=== PATIENT | female | born 1960 | race Caucasian/White ===

== ENCOUNTER 2019-12-22 07:24 | Day surgery (SDC) | payer MEDICARE, MEDICAID ==
[~2019-12-22] VITALS: Ht 160 cm; Wt 115.4 kg
[2019-12-22] VITALS (8 sets, daily range): BP systolic 99–139; BP diastolic 52–81
[~2019-12-22 07:24] MED LIST: CALTRATE 600 +1 EACH PO; DIAZ2.5K RC; IRON150C13 PO; LACO100T2 PO; LACO200T2 PO; LACT10SO57 PO; LEVE750T6 PO; LORA2DIS4 IJ; MAGN400O6 PO; METO-539 PO; MULT-821 PO; OMEP20TA23 PO; PER5325T PO; PERA4TAB PO; POLY17PO10 PO
[2019-12-22] MEDS ORDERED: normal saline 1,000 ML IV SCH (07:55)
[2019-12-22] MEDS ORDERED: diphenhydrAMINE 25mg capsule PO PRN (07:55)
[2019-12-22] MEDS ORDERED: LORA2VIA30 IM (08:52)
[2019-12-22] MEDS ORDERED: midazolam 2 mg/2 ml injection ONE ×2 (08:52→09:23)
[2019-12-22] MEDS ORDERED: HYDR12.55 PO (08:52)
[2019-12-22] MEDS ORDERED: LACO150T2 PO (08:52)
[2019-12-22] MEDS ORDERED: DOCU100C41 PO (08:52)
[2019-12-22] MEDS ORDERED: AMLO-94 PO (08:52)
[2019-12-22] MEDS ORDERED: CHLO25TA2 PO (08:52)
[2019-12-22] MEDS ORDERED: LIDOcaine 1% (10mg/ml)w/preservative injection 20ml MDV ONE (08:52)
[2019-12-22] MEDS ORDERED: LORA10TA7 PO (08:52)
[2019-12-22] MEDS ORDERED: FOLI0.4T2 PO (08:52)
[2019-12-22] MEDS ORDERED: POTA20TA19 PO (08:52)
[2019-12-22] MEDS ORDERED: iohexol 350 MG/ML 50ML vial IV ONE (08:52)
[2019-12-22] MEDS ORDERED: fentaNYL/PF 50MCG/1 ML 2ML syringe ONE (08:52)
[2019-12-22] MEDS ORDERED: DICL50TA8 PO (08:52)
[2019-12-22] MEDS ORDERED: SENN-25 PO (08:52)
[2019-12-22] MEDS ORDERED: SODI650T29 PO (08:52)
[2019-12-22] MEDS ORDERED: DIAZ2TAB3 PO (08:52)
[2019-12-22] MEDS ORDERED: iohexol 350MG/ML 100ml bottle IV ONE (08:53)
[2019-12-22 08:58] LABS: BASOPHILS # (AUTO) 0.1 X10'3 (0-0.2); BASOPHILS % (AUTO) 0.9 % (0-1); EOSINOPHILS # (AUTO) 0.2 X10'3 (0-0.9); EOSINOPHILS % (AUTO) 2.8 % (0-6); HEMATOCRIT 38.7 % (35.0-45.0); LYMPHOCYTES % (AUTO) 24.6 % (21-51); MEAN CORPUSCULAR HEMOGLOBIN 28.7 PG (27.0-31.0); MEAN CORPUSCULAR HGB CONC 33.5 g/dL (33.0-36.5); MEAN CORPUSCULAR VOLUME 85.6 FL (78-98); MEAN PLATELET VOLUME 7.3 FL (7.4-10.4); MONOCYTES # (AUTO) 0.5 X10'3 (0-0.9); MONOCYTES % (AUTO) 6.2 % (2-12); NEUTROPHILS # (AUTO) 5.2 X10'3 (1.8-7.7); NEUTROPHILS % (AUTO) 65.5 % (42-75); PLATELET COUNT 377 X10'3 (140-440); RED BLOOD COUNT 4.53 X10'6 (4.20-5.60); RED CELL DISTRIBUTION WIDTH 15.4 % (11.5-14.5); WHITE BLOOD COUNT 7.9 X10'3 (4.5-11.0)
[2019-12-22] MEDS ORDERED: proCHLORperazine 10 MG/2 ml inj ONE (09:23)
[2019-12-22 09:33] LABS: ALBUMIN 3.6 G/DL (3.4-5.0); BLOOD UREA NITROGEN 18 MG/DL (7-18); BUN/CREATININE RATIO 21.7 (6.6-38.0); CALCIUM 9.2 MG/DL (8.5-10.1); CHLORIDE 100 MMOL/L (99-107); CREATININE 0.83 MG/DL (0.40-0.90); GLUCOSE 86 MG/DL (70-104); MAGNESIUM 1.8 MG/DL (1.5-2.4); POTASSIUM 3.5 MMOL/L (3.5-5.1); TOTAL CARBON DIOXIDE 35.2 MMOL/L (24-32); eGFR 70 ML/MIN
[2019-12-22] MEDS ORDERED: heparin 1,000unit/ml 10ml vial 10 ML ONE (09:34)
[2019-12-22 09:35] LABS: ANION GAP 3 (8-16); SODIUM 138 MMOL/L (135-145)
[2019-12-22] MEDS ORDERED: acetaminophen 325mg tablet PO PRN (10:20)
[2019-12-22] MEDS ORDERED: ondansetron/PF 4mg/2ml inj IV PRN (10:20)
[2019-12-22] MEDS ORDERED: HYDROcodone/acetaminophen 5mg/325mg tablet PO PRN (10:20)
[2019-12-22] MEDS ORDERED: HYDROcodone/acetaminophen 10/325mg tab PO PRN (10:20)
[2019-12-22] MEDS ORDERED: proCHLORperazine 10 MG/2 ml inj IV PRN (10:20)
--- NOTE | 2019-12-22 11:50 | NUR ---
pt site drsg changed. no s/s of bleeding. pt understands to take dressing off prior to shower after 24 hours.
[2019-12-22] MEDS ORDERED: pneumococcal 23-VAL P-sac vacc 25 mcg/0.5ml vial IMVAC ONE (12:00)
== END 2019-12-22 13:20 | disposition home or self-care (01) ==
LOC: SSTAY O 07:24
PROVIDERS: ATTEND Internal Medicine Cardiovascular Disease
DX: R94.39 Abnormal result of other cardiovascular function study (principal); R07.89 Other chest pain; I25.10 Atherosclerotic heart disease of native coronary artery without angina pectoris; K21.9 Gastro-esophageal reflux disease without esophagitis; I10 Essential (primary) hypertension; Z23 Encounter for immunization; Z79.899 Other long term (current) drug therapy
CPT/HCPCS: 36415; 80048; 83735; 85025; 85610; 90732; 93005; 93458; 99152; 99153; C1769; C1894; G0009; J0780; J1644; J2001; J2250; J3010; J7030; Q0163; Q9967; 76937; A4620; A6258; C1760

== ENCOUNTER 2020-02-24 20:41 | Emergency (ER) | payer MEDICARE, MEDICAID ==
[~2020-02-24] VITALS: Ht 160 cm; Wt 113.6 kg
[~2020-02-24 20:41] MED LIST changes: +AMLO-94 PO; +CHLO25TA2 PO; +DIAZ2TAB3 PO; +DICL50TA8 PO; +DOCU100C41 PO; +FOLI0.4T2 PO; +HYDR12.55 PO; -LACO100T2 PO; +LACO150T2 PO; -LACO200T2 PO; +LORA10TA7 PO; -LORA2DIS4 IJ; +LORA2VIA30 IM; +POTA20TA19 PO; +SENN-25 PO; +SODI650T29 PO
[2020-02-24] MEDS ORDERED: LORazepam 2 mg/ml vial IM ONE (21:20)
[2020-02-24 21:35] LABS: EOSINOPHILS # (AUTO) 0.1 X10'3 (0-0.9); LYMPHOCYTES # (AUTO) 1.9 X10'3 (1.1-4.8)
[2020-02-24 21:36] LABS: BASOPHILS % (AUTO) 0.2 % (0-1); EOSINOPHILS % (AUTO) 0.6 % (0-6); HEMATOCRIT 37.3 % (35.0-45.0); HEMOGLOBIN 12.7 g/dl (12.0-16.0); MEAN CORPUSCULAR HEMOGLOBIN 29.4 PG (27.0-31.0); MEAN CORPUSCULAR HGB CONC 34.1 g/dL (33.0-36.5); MEAN CORPUSCULAR VOLUME 86.1 FL (78-98); MEAN PLATELET VOLUME 7.2 FL (7.4-10.4); NEUTROPHILS # (AUTO) 11.3 X10'3 (1.8-7.7); NEUTROPHILS % (AUTO) 79.2 % (42-75); PLATELET COUNT 401 X10'3 (140-440); RED BLOOD COUNT 4.33 X10'6 (4.20-5.60); RED CELL DISTRIBUTION WIDTH 14.7 % (11.5-14.5); WHITE BLOOD COUNT 14.3 X10'3 (4.5-11.0)
--- NOTE | 2020-02-24 21:40 | NUR ---
pt resting comfortably, in no distress, no seizures since pt arrived
[2020-02-24 21:48] LABS: ALANINE AMINOTRANSFERASE 29 U/L (12-78); ALBUMIN 3.6 G/DL (3.4-5.0); ALKALINE PHOSPHATASE 72 IU/L (46-116); ANION GAP 11 (8-16); ASPARTATE AMINO TRANSFERASE 19 U/L (10-37); BILIRUBIN,TOTAL 0.4 MG/DL (0.1-1.0); BLOOD UREA NITROGEN 13 MG/DL (7-18); BUN/CREATININE RATIO 14.9 (6.6-38.0); CHLORIDE 93 MMOL/L (99-107); CREATININE 0.87 MG/DL (0.40-0.90); GLUCOSE 114 MG/DL (70-104); POTASSIUM 3.9 MMOL/L (3.5-5.1); SODIUM 129 MMOL/L (135-145); TOTAL CARBON DIOXIDE 25.5 MMOL/L (24-32); TOTAL PROTEIN 7.1 G/DL (6.4-8.2); eGFR 66 ML/MIN
[2020-02-24] MEDS ORDERED: BISA10SU60 RC (21:58)
[2020-02-24 22:16] VITALS: BP 127/73
[2020-02-24 22:19] LABS: TOTAL CELLS COUNTED 100
[2020-02-24 22:20] LABS: PLATELET ESTIMATE NORMAL
== END 2020-02-24 22:18 | disposition home or self-care (01) ==
LOC: ER 20:41
DX: G40.909 Epilepsy, unspecified, not intractable, without status epilepticus (principal); K59.00 Constipation, unspecified; E87.1 Hypo-osmolality and hyponatremia; E66.9 Obesity, unspecified; K21.9 Gastro-esophageal reflux disease without esophagitis; M19.90 Unspecified osteoarthritis, unspecified site; Z98.890 Other specified postprocedural states; Z90.49 Acquired absence of other specified parts of digestive tract; Z98.51 Tubal ligation status; Z88.8 Allergy status to other drugs, medicaments and biological substances; Z79.899 Other long term (current) drug therapy
CPT/HCPCS: 36415; 80053; 85025; 93005; 96372; 99284; J2060

== ENCOUNTER 2020-03-17 15:53 | Emergency (ER) | payer MEDICARE, MEDICAID ==
[~2020-03-17] VITALS: Ht 160 cm; Wt 113.6 kg
[~2020-03-17 15:53] MED LIST changes: +BISA10SU60 RC
[2020-03-17] MEDS ORDERED: levetiracetam inj 1,000 MG in normal saline 100ml IV soln 90 ML IV STA (15:59)
[2020-03-17] MEDS ORDERED: magnesium 2GM in 50ml NS 50 ML IV ONE (16:00)
[2020-03-17] MEDS ORDERED: LORazepam 2 mg/ml vial IV ONE (16:00)
[2020-03-17] MEDS ORDERED: normal saline 1000ML IV soln IVB ONE (16:00)
[2020-03-17 16:39] LABS: BASOPHILS # (AUTO) 0.2 X10'3 (0-0.2); BASOPHILS % (AUTO) 1.4 % (0-1); EOSINOPHILS # (AUTO) 0.1 X10'3 (0-0.9); EOSINOPHILS % (AUTO) 0.7 % (0-6); HEMOGLOBIN 13.1 g/dl (12.0-16.0); LYMPHOCYTES # (AUTO) 1.7 X10'3 (1.1-4.8); MEAN CORPUSCULAR HEMOGLOBIN 29.1 PG (27.0-31.0); MEAN CORPUSCULAR HGB CONC 33.5 g/dL (33.0-36.5); MEAN CORPUSCULAR VOLUME 86.7 FL (78-98); MEAN PLATELET VOLUME 7.7 FL (7.4-10.4); MONOCYTES # (AUTO) 0.7 X10'3 (0-0.9); MONOCYTES % (AUTO) 5.6 % (2-12); NEUTROPHILS # (AUTO) 9.4 X10'3 (1.8-7.7); NEUTROPHILS % (AUTO) 78.3 % (42-75); PLATELET COUNT 371 X10'3 (140-440); RED BLOOD COUNT 4.49 X10'6 (4.20-5.60); RED CELL DISTRIBUTION WIDTH 15.1 % (11.5-14.5)
[2020-03-17 16:56] LABS: ALANINE AMINOTRANSFERASE 22 U/L (12-78); ALBUMIN 3.8 G/DL (3.4-5.0); ALBUMIN/GLOBULIN RATIO 1.1 (1.1-1.5); ALKALINE PHOSPHATASE 75 IU/L (46-116); ANION GAP 10 (8-16); ASPARTATE AMINO TRANSFERASE 19 U/L (10-37); BILIRUBIN,TOTAL 0.4 MG/DL (0.1-1.0); BLOOD UREA NITROGEN 15 MG/DL (7-18); BUN/CREATININE RATIO 17.9 (6.6-38.0); CALCIUM 9.1 MG/DL (8.5-10.1); CHLORIDE 97 MMOL/L (99-107); CREATININE 0.84 MG/DL (0.40-0.90); GLUCOSE 135 MG/DL (70-104); POTASSIUM 3.1 MMOL/L (3.5-5.1); SODIUM 133 MMOL/L (135-145); TOTAL PROTEIN 7.4 G/DL (6.4-8.2); eGFR 69 ML/MIN
[2020-03-17] MEDS ORDERED: potassium Cl 20 mEq SR tablet PO STA (17:22)
--- NOTE | 2020-03-17 17:24 | NUR ---
BACK IN ROOM, SZ PADS UP MONITORING ON, MEDS RUNNING
[2020-03-17 17:40] LABS: CLARITY,URINE CLEAR (Clear); COLOR,URINE YELLOW (Yellow); GLUCOSE, URINE NEGATIVE (Neg); KETONES,URINE NEGATIVE (Neg); LEUKOCYTE ESTERASE ,URINE NEGATIVE (Neg); NITRITES, URINE NEGATIVE (Neg); OCCULT BLOOD,URINE TRACE-INTACT (Neg); PROTEIN,URINE NEGATIVE (Neg); UROBILINOGEN,URINE 0.2 E.U/dL (0.2-1.0)
[2020-03-17] MEDS ORDERED: HYDROcodone/acetaminophen 10/325mg tab PO ONE (17:50)
[2020-03-17 17:58] LABS: UA COLLECTION TYPE CLN CATCH MIDSTREAM
[2020-03-17 18:00] LABS: SQUAMOUS EPITHELIAL CELL,UR MANY /LPF (FEW)
[2020-03-17 18:01] LABS: BACTERIA,URINE FEW /HPF (Neg); RBC,URINE 0-2 /HPF (0-2); WBC,URINE 0-4 /HPF (0-4)
--- NOTE | 2020-03-17 18:48 | NUR ---
PT CALLED ABOUT HIS , WHO IS ON A MED WAIT . VERIFIED PT IS TO TAKE TAXI CAB HOME AND HE WILL HAVE HER MECHANICAL CHAIR AT THE CURB SIDE FOR WHEN THE CAB ARRIVES AT THEIR HOME .PLAN OF CARE UPDATED WITH PATIENT
--- NOTE | 2020-03-17 19:30 | NUR ---
[facility] CALLED TO TRANSPORT PT TO HOME FOR DISCHARGE . PT IS GOING TO [address] [place] [facility].
[2020-03-17 19:59] VITALS: BP 138/77
[2020-03-18] MEDS ORDERED: MAGN296S68 PO (18:54)
== END 2020-03-17 20:20 | disposition home or self-care (01) ==
LOC: ER 15:54
DX: G40.909 Epilepsy, unspecified, not intractable, without status epilepticus (principal); K21.9 Gastro-esophageal reflux disease without esophagitis; Z90.49 Acquired absence of other specified parts of digestive tract; Z98.890 Other specified postprocedural states; Z98.51 Tubal ligation status; Z88.8 Allergy status to other drugs, medicaments and biological substances; Z79.899 Other long term (current) drug therapy
CPT/HCPCS: 36415; 70450; 80053; 81001; 85025; 93005; 96365; 96375; 99285; J1953; J2060; J3475; J7030; 96368

== ENCOUNTER 2020-03-18 16:17 | Emergency (ER) | payer MEDICARE, MEDICAID ==
[~2020-03-18] VITALS: Ht 160 cm; Wt 63.6 kg
[2020-03-18] MEDS ORDERED: levetiracetam-NS 1000mg/100ml 100 ML IV ONE (16:40)
[2020-03-18] MEDS ORDERED: glycerin ADULT rectal suppository RC ONE (16:45)
[2020-03-18] MEDS ORDERED: normal saline 1000ml 1,000 ML IV ONE (16:45)
[2020-03-18] MEDS ORDERED: ketorolac trometh. 30mg/ml inj. IV ONE (16:45)
[2020-03-18 16:59] LABS: BASOPHILS # (AUTO) 0.1 X10'3 (0-0.2); BASOPHILS % (AUTO) 0.9 % (0-1); EOSINOPHILS % (AUTO) 0.3 % (0-6); HEMATOCRIT 39.2 % (35.0-45.0); HEMOGLOBIN 12.9 g/dl (12.0-16.0); LYMPHOCYTES # (AUTO) 1.3 X10'3 (1.1-4.8); LYMPHOCYTES % (AUTO) 10.9 % (21-51); MEAN CORPUSCULAR HEMOGLOBIN 28.4 PG (27.0-31.0); MEAN CORPUSCULAR HGB CONC 32.9 g/dL (33.0-36.5); MEAN CORPUSCULAR VOLUME 86.5 FL (78-98); MEAN PLATELET VOLUME 7.4 FL (7.4-10.4); MONOCYTES # (AUTO) 0.7 X10'3 (0-0.9); MONOCYTES % (AUTO) 5.4 % (2-12); NEUTROPHILS # (AUTO) 10.1 X10'3 (1.8-7.7); NEUTROPHILS % (AUTO) 82.5 % (42-75); PLATELET COUNT 390 X10'3 (140-440); RED BLOOD COUNT 4.53 X10'6 (4.20-5.60); RED CELL DISTRIBUTION WIDTH 15.4 % (11.5-14.5); WHITE BLOOD COUNT 12.2 X10'3 (4.5-11.0)
[2020-03-18 17:10] LABS: ALANINE AMINOTRANSFERASE 33 U/L (12-78); ALBUMIN 3.8 G/DL (3.4-5.0); ALBUMIN/GLOBULIN RATIO 1.1 (1.1-1.5); ALKALINE PHOSPHATASE 74 IU/L (46-116); ANION GAP 7 (8-16); ASPARTATE AMINO TRANSFERASE 19 U/L (10-37); BILIRUBIN,TOTAL 0.5 MG/DL (0.1-1.0); BLOOD UREA NITROGEN 10 MG/DL (7-18); BUN/CREATININE RATIO 11.9 (6.6-38.0); CALCIUM 8.8 MG/DL (8.5-10.1); CHLORIDE 97 MMOL/L (99-107); CREATININE 0.84 MG/DL (0.40-0.90); GLUCOSE 195 MG/DL (70-104); MAGNESIUM 1.9 MG/DL (1.5-2.4); POTASSIUM 3.2 MMOL/L (3.5-5.1); SODIUM 131 MMOL/L (135-145); TOTAL CARBON DIOXIDE 27.5 MMOL/L (24-32); TOTAL PROTEIN 7.3 G/DL (6.4-8.2); eGFR 69 ML/MIN
[2020-03-18] MEDS ORDERED: potassium Cl 20 mEq SR tablet PO STA (17:30)
[2020-03-18 17:34] LABS: CLARITY,URINE CLEAR (Clear); COLOR,URINE YELLOW (Yellow); GLUCOSE, URINE NEGATIVE (Neg); KETONES,URINE TRACE mg/dl (Neg); LEUKOCYTE ESTERASE ,URINE NEGATIVE (Neg); NITRITES, URINE NEGATIVE (Neg); OCCULT BLOOD,URINE MODERATE (Neg); PROTEIN,URINE 100 mg/dl (Neg); UROBILINOGEN,URINE 0.2 E.U/dL (0.2-1.0)
[2020-03-18 17:40] LABS: UA COLLECTION TYPE STRAIGHT CATH
[2020-03-18 17:41] LABS: WBC,URINE 0-4 /HPF (0-4)
[2020-03-18 17:42] LABS: BACTERIA,URINE FEW /HPF (Neg); MUCUS STRANDS MODERATE /LPF (Neg); SQUAMOUS EPITHELIAL CELL,UR MODERATE /LPF (FEW); TRANSITIONAL EPI CELLS,URINE MANY /HPF
[2020-03-18 17:43] LABS: HYALINE CASTS 0-3 /LPF (NEGATIVE)
[2020-03-18] MEDS ORDERED: bisacodyl 5mg tablet.DR PO ONE (18:30)
[2020-03-18] MEDS ORDERED: chlordiazePOXIDE 25mg capsule PO ONE (18:30)
[2020-03-18] MEDS ORDERED: MAGN296S68 PO (18:54)
--- NOTE | 2020-03-18 19:00 | NUR ---
PER MD AUGUST SUGAR/SODA ENEMA ADMINISTERED AT BEDSIDE
[2020-03-18 19:53] VITALS: BP 144/60
== END 2020-03-18 19:30 | disposition home or self-care (01) ==
LOC: ER 16:18
DX: R56.9 Unspecified convulsions (principal); K59.00 Constipation, unspecified; K21.9 Gastro-esophageal reflux disease without esophagitis; Z98.51 Tubal ligation status; Z98.890 Other specified postprocedural states; Z88.8 Allergy status to other drugs, medicaments and biological substances; Z79.899 Other long term (current) drug therapy
CPT/HCPCS: 36415; 80053; 81001; 83735; 85025; 96374; 96375; 99284; J1885; J1953; J7030; 96365

== ENCOUNTER 2020-04-21 16:47 | Emergency (ER) | payer MEDICARE, MEDICAID ==
[~2020-04-21] VITALS: Ht 160 cm; Wt 118.2 kg
[~2020-04-21 16:47] MED LIST changes: +MAGN296S68 PO
[2020-04-21] MEDS ORDERED: magnesium 2GM in 50ml NS 50 ML IV ONE (17:00)
[2020-04-21] MEDS ORDERED: normal saline 1000ML IV soln IVB ONE (17:00)
[2020-04-21] MEDS ORDERED: ondansetron/PF 4mg/2ml inj IV ONE (17:00)
--- NOTE | 2020-04-21 17:00 | NUR ---
A& O X4, ABLE TO MAKE NEEDS KNOWN AND ANSWER QUESTIONS APPROPRIATELY.
[2020-04-21] MEDS ORDERED: levetiracetam-NS 1000mg/100ml 100 ML IV ONE (17:10)
[2020-04-21 17:47] LABS: BASOPHILS # (AUTO) 0.1 X10'3 (0-0.2); BASOPHILS % (AUTO) 1.3 % (0-1); EOSINOPHILS # (AUTO) 0.1 X10'3 (0-0.9); EOSINOPHILS % (AUTO) 1.2 % (0-6); HEMATOCRIT 38.4 % (35.0-45.0); HEMOGLOBIN 12.6 g/dl (12.0-16.0); LYMPHOCYTES # (AUTO) 1.5 X10'3 (1.1-4.8); LYMPHOCYTES % (AUTO) 13.6 % (21-51); MEAN CORPUSCULAR HEMOGLOBIN 28.3 PG (27.0-31.0); MEAN CORPUSCULAR HGB CONC 32.9 g/dL (33.0-36.5); MEAN CORPUSCULAR VOLUME 86.1 FL (78-98); MEAN PLATELET VOLUME 7.2 FL (7.4-10.4); MONOCYTES # (AUTO) 0.7 X10'3 (0-0.9); NEUTROPHILS # (AUTO) 8.6 X10'3 (1.8-7.7); NEUTROPHILS % (AUTO) 77.9 % (42-75); PLATELET COUNT 335 X10'3 (140-440); RED BLOOD COUNT 4.45 X10'6 (4.20-5.60); RED CELL DISTRIBUTION WIDTH 15.4 % (11.5-14.5); WHITE BLOOD COUNT 11.1 X10'3 (4.5-11.0)
--- NOTE | 2020-04-21 17:50 | NUR ---
PATIENT RESTING IN BED, IVF INFUSING. NO C/O NOTED.
[2020-04-21 17:59] LABS: ALANINE AMINOTRANSFERASE 32 U/L (12-78); ALBUMIN 3.4 G/DL (3.4-5.0); ALKALINE PHOSPHATASE 105 IU/L (46-116); ANION GAP 9 (8-16); ASPARTATE AMINO TRANSFERASE 20 U/L (10-37); BILIRUBIN,TOTAL 0.4 MG/DL (0.1-1.0); BLOOD UREA NITROGEN 16 MG/DL (7-18); BUN/CREATININE RATIO 16.8 (6.6-38.0); CALCIUM 8.8 MG/DL (8.5-10.1); CHLORIDE 98 MMOL/L (99-107); CREATININE 0.95 MG/DL (0.40-0.90); GLUCOSE 98 MG/DL (70-104); SODIUM 134 MMOL/L (135-145); TOTAL CARBON DIOXIDE 26.9 MMOL/L (24-32); TOTAL PROTEIN 6.9 G/DL (6.4-8.2); eGFR 60 ML/MIN
--- NOTE | 2020-04-21 18:05 | NUR ---
Received crit lab call from [facility] on low Potassium 2.8.
[2020-04-21 18:06] LABS: POTASSIUM 2.8 MMOL/L (3.5-5.1)
[2020-04-21] MEDS ORDERED: potassium Cl 20 mEq SR tablet PO STA (18:09)
--- NOTE | 2020-04-21 18:09 | NUR ---
pt family member called asking for an update: Jose Guadalupe Dobbins [phone]
[2020-04-21] MEDS ORDERED: potassium Cl 10 mEq/100mL bag IV ONE (18:10)
--- NOTE | 2020-04-21 20:35 | NUR ---
[facility] was called for pt. Pt states she has no money to pay. Hospital is paying. It will be here in 45 minutes
[2020-04-21 21:05] VITALS: BP 155/95
== END 2020-04-21 21:07 | disposition home or self-care (01) ==
LOC: ER 16:48
DX: G40.909 Epilepsy, unspecified, not intractable, without status epilepticus (principal); K21.9 Gastro-esophageal reflux disease without esophagitis; Z90.49 Acquired absence of other specified parts of digestive tract; Z98.51 Tubal ligation status; Z98.890 Other specified postprocedural states; Z88.8 Allergy status to other drugs, medicaments and biological substances; Z79.899 Other long term (current) drug therapy
CPT/HCPCS: 36415; 70450; 80053; 85025; 93005; 96365; 96366; 96375; 99285; J1953; J2405; J3475; J3480; J7030

== ENCOUNTER 2020-05-01 16:42 | Emergency (ER) | payer MEDICARE, MEDICAID ==
[~2020-05-01] VITALS: Ht 165.1 cm; Wt 121.0 kg
[2020-05-01] MEDS ORDERED: LORazepam 2 mg/ml vial IV ONE ×2 (16:55→19:10)
--- NOTE | 2020-05-01 17:24 | NUR ---
RELIEVING RN FOR BREAK, PT IS RESTING QUIETLY ON GURNEY, RESP EVEN AND UNLABORED, STARTED SL ON 1ST ATTEMPT TO LEFT AC, BLOOD DRAWN, MEDICATED PER MD ORDER
--- NOTE | 2020-05-01 17:42 | NUR ---
Updated Jose Guadalupe pt's after verbal consent obtained, then call transferred to pt room.
[2020-05-01 18:27] LABS: BASOPHILS # (AUTO) 0.1 X10'3 (0-0.2); BASOPHILS % (AUTO) 0.9 % (0-1); EOSINOPHILS # (AUTO) 0.1 X10'3 (0-0.9); EOSINOPHILS % (AUTO) 0.6 % (0-6); HEMATOCRIT 38.3 % (35.0-45.0); HEMOGLOBIN 12.9 g/dl (12.0-16.0); LYMPHOCYTES # (AUTO) 1.1 X10'3 (1.1-4.8); LYMPHOCYTES % (AUTO) 9.4 % (21-51); MEAN CORPUSCULAR HEMOGLOBIN 28.7 PG (27.0-31.0); MEAN CORPUSCULAR HGB CONC 33.7 g/dL (33.0-36.5); MEAN CORPUSCULAR VOLUME 85.2 FL (78-98); MEAN PLATELET VOLUME 7.3 FL (7.4-10.4); MONOCYTES # (AUTO) 0.5 X10'3 (0-0.9); MONOCYTES % (AUTO) 4.3 % (2-12); NEUTROPHILS # (AUTO) 9.9 X10'3 (1.8-7.7); NEUTROPHILS % (AUTO) 84.8 % (42-75); PLATELET COUNT 371 X10'3 (140-440); RED CELL DISTRIBUTION WIDTH 14.9 % (11.5-14.5); WHITE BLOOD COUNT 11.7 X10'3 (4.5-11.0)
[2020-05-01 18:35] LABS: ALANINE AMINOTRANSFERASE 34 U/L (12-78); ALBUMIN 3.6 G/DL (3.4-5.0); ALKALINE PHOSPHATASE 84 IU/L (46-116); ANION GAP 6 (8-16); ASPARTATE AMINO TRANSFERASE 16 U/L (10-37); BILIRUBIN,TOTAL 0.3 MG/DL (0.1-1.0); BLOOD UREA NITROGEN 12 MG/DL (7-18); BUN/CREATININE RATIO 11.2 (6.6-38.0); CHLORIDE 97 MMOL/L (99-107); CREATININE 1.07 MG/DL (0.40-0.90); ETHANOL < 0.010 GM/DL (0.0-0.010); GLUCOSE 131 MG/DL (70-104); POTASSIUM 3.7 MMOL/L (3.5-5.1); SODIUM 133 MMOL/L (135-145); TOTAL CARBON DIOXIDE 29.9 MMOL/L (24-32); TOTAL PROTEIN 7.1 G/DL (6.4-8.2); eGFR 52 ML/MIN
[2020-05-01 19:05] LABS: URINE AMPHETAMINE SCREEN NEGATIVE (Neg); URINE BARBITUATE SCREEN NEGATIVE (Neg); URINE BENZODIAZEPINES SCREEN POSITIVE (Neg); URINE CANNABINOID SCREEN NEGATIVE (Neg); URINE COCAINE SCREEN NEGATIVE (Neg); URINE METHADONE SCREEN NEGATIVE (Neg); URINE OPIATE SCREEN NEGATIVE (Neg); URINE PHENCYCLIDINE SCREEN NEGATIVE (Neg)
--- NOTE | 2020-05-01 19:07 | NUR ---
Pt. difficult to arouse and not responding to verbal stimuli. She appears to be having mild tremors. at bedside states that the pt. started shaking about a minutre ago. called to come at bedside. N.O received for ativan IV.
[2020-05-01 20:02] VITALS: BP 130/90
== END 2020-05-01 20:15 | disposition home or self-care (01) ==
LOC: ER 16:42
DX: G40.909 Epilepsy, unspecified, not intractable, without status epilepticus (principal); I10 Essential (primary) hypertension; K21.9 Gastro-esophageal reflux disease without esophagitis; Z90.49 Acquired absence of other specified parts of digestive tract; Z98.51 Tubal ligation status; Z98.890 Other specified postprocedural states; Z88.5 Allergy status to narcotic agent; Z88.8 Allergy status to other drugs, medicaments and biological substances; Z79.899 Other long term (current) drug therapy
CPT/HCPCS: 36415; 71045; 80053; 80305; 80320; 85025; 85610; 93005; 96374; 96376; 99285; J2060

== ENCOUNTER 2020-05-01 20:26 | Emergency (ER) | payer MEDICARE, MEDICAID ==
[~2020-05-01] VITALS: Ht 165.1 cm; Wt 121.0 kg
[2020-05-01] MEDS ORDERED: levetiracetam 250mg tablet PO ONE (20:55)
[2020-05-01 21:29] VITALS: BP 128/70
== END 2020-05-01 21:57 | disposition home or self-care (01) ==
LOC: ER 20:26
DX: R42 Dizziness and giddiness (principal); I10 Essential (primary) hypertension; K21.9 Gastro-esophageal reflux disease without esophagitis; Z90.49 Acquired absence of other specified parts of digestive tract; Z86.69 Personal history of other diseases of the nervous system and sense organs; Z98.51 Tubal ligation status; Z98.890 Other specified postprocedural states; Z88.5 Allergy status to narcotic agent; Z79.899 Other long term (current) drug therapy
CPT/HCPCS: 99283

== ENCOUNTER 2020-05-22 14:13 | Emergency (ER) | payer MEDICARE, MEDICAID ==
[~2020-05-22] VITALS: Ht 160 cm; Wt 118.0 kg
--- NOTE | 2020-05-22 14:33 | NUR ---
awaiting for ED .
--- NOTE | 2020-05-22 15:00 | NUR ---
patient assisted to bsc.
--- NOTE | 2020-05-22 15:00 | NUR ---
seizure pads on.
--- NOTE | 2020-05-22 15:22 | NUR ---
patient assisted to bsc.
[2020-05-22] MEDS ORDERED: ketorolac tromethamine 15mg/ml inj. IV ONE (17:45)
[2020-05-22] MEDS ORDERED: LORazepam 2 mg/ml vial IV ONE (17:45)
[2020-05-22] MEDS ORDERED: normal saline 1000ML IV soln IVB ONE (17:45)
[2020-05-22 18:08] LABS: BASOPHILS # (AUTO) 0.1 X10'3 (0-0.2); BASOPHILS % (AUTO) 1.1 % (0-1); EOSINOPHILS % (AUTO) 0.1 % (0-6); HEMATOCRIT 37.5 % (35.0-45.0); HEMOGLOBIN 12.3 g/dl (12.0-16.0); LYMPHOCYTES # (AUTO) 0.9 X10'3 (1.1-4.8); LYMPHOCYTES % (AUTO) 7.4 % (21-51); MEAN CORPUSCULAR HEMOGLOBIN 27.9 PG (27.0-31.0); MEAN CORPUSCULAR VOLUME 84.6 FL (78-98); MONOCYTES # (AUTO) 0.4 X10'3 (0-0.9); NEUTROPHILS # (AUTO) 10.5 X10'3 (1.8-7.7); NEUTROPHILS % (AUTO) 88.4 % (42-75); PLATELET COUNT 397 X10'3 (140-440); RED BLOOD COUNT 4.43 X10'6 (4.20-5.60); RED CELL DISTRIBUTION WIDTH 15.1 % (11.5-14.5); WHITE BLOOD COUNT 11.8 X10'3 (4.5-11.0)
[2020-05-22 18:20] LABS: ALANINE AMINOTRANSFERASE 27 U/L (12-78); ALBUMIN 3.6 G/DL (3.4-5.0); ALBUMIN/GLOBULIN RATIO 0.9 (1.1-1.5); ALKALINE PHOSPHATASE 82 IU/L (46-116); ANION GAP 6 (8-16); ASPARTATE AMINO TRANSFERASE 16 U/L (10-37); BILIRUBIN,TOTAL 0.3 MG/DL (0.1-1.0); BLOOD UREA NITROGEN 14 MG/DL (7-18); BUN/CREATININE RATIO 14.6 (6.6-38.0); CALCIUM 9.1 MG/DL (8.5-10.1); CHLORIDE 99 MMOL/L (99-107); CREATININE 0.96 MG/DL (0.40-0.90); GLUCOSE 141 MG/DL (70-104); MAGNESIUM 1.7 MG/DL (1.5-2.4); PHOSPHORUS 3.1 MG/DL (2.3-4.5); POTASSIUM 3.1 MMOL/L (3.5-5.1); SODIUM 136 MMOL/L (135-145); TOTAL CARBON DIOXIDE 30.6 MMOL/L (24-32); TOTAL PROTEIN 7.5 G/DL (6.4-8.2); eGFR 59 ML/MIN
[2020-05-22] MEDS ORDERED: iohexol 300mg/ml 100ml inj. ONE (18:46)
[2020-05-22] MEDS ORDERED: potassium Cl 20 mEq SR tablet PO STA (19:11)
[2020-05-22 20:36] VITALS: BP 152/89
== END 2020-05-22 20:37 | disposition home or self-care (01) ==
LOC: ER 14:13
DX: G40.909 Epilepsy, unspecified, not intractable, without status epilepticus (principal); I10 Essential (primary) hypertension; K21.9 Gastro-esophageal reflux disease without esophagitis; R42 Dizziness and giddiness; E87.6 Hypokalemia; Z90.49 Acquired absence of other specified parts of digestive tract; Z98.51 Tubal ligation status; Z98.890 Other specified postprocedural states; Z88.5 Allergy status to narcotic agent; Z79.899 Other long term (current) drug therapy
CPT/HCPCS: 36415; 74177; 80053; 83735; 84100; 85025; 96374; 96375; 99285; J1885; J2060; J7030; Q9967; 96361

== ENCOUNTER 2020-06-03 18:53 | Emergency (ER) | payer MEDICARE, MEDICAID ==
[~2020-06-03] VITALS: Ht 160 cm; Wt 118.2 kg
[2020-06-03] MEDS ORDERED: ondansetron/PF 4mg/2ml inj IV ONE (19:30)
[2020-06-03 19:45] LABS: BASOPHILS # (AUTO) 0.1 X10'3 (0-0.2); BASOPHILS % (AUTO) 0.9 % (0-1); EOSINOPHILS # (AUTO) 0.1 X10'3 (0-0.9); EOSINOPHILS % (AUTO) 0.5 % (0-6); HEMATOCRIT 36.7 % (35.0-45.0); HEMOGLOBIN 12.3 g/dl (12.0-16.0); LYMPHOCYTES # (AUTO) 1.5 X10'3 (1.1-4.8); LYMPHOCYTES % (AUTO) 13.6 % (21-51); MEAN CORPUSCULAR HEMOGLOBIN 28.2 PG (27.0-31.0); MEAN CORPUSCULAR HGB CONC 33.4 g/dL (33.0-36.5); MEAN CORPUSCULAR VOLUME 84.5 FL (78-98); MEAN PLATELET VOLUME 7.2 FL (7.4-10.4); MONOCYTES # (AUTO) 0.7 X10'3 (0-0.9); MONOCYTES % (AUTO) 6.3 % (2-12); NEUTROPHILS # (AUTO) 8.5 X10'3 (1.8-7.7); NEUTROPHILS % (AUTO) 78.7 % (42-75); PLATELET COUNT 439 X10'3 (140-440); RED BLOOD COUNT 4.35 X10'6 (4.20-5.60); RED CELL DISTRIBUTION WIDTH 15.6 % (11.5-14.5); WHITE BLOOD COUNT 10.8 X10'3 (4.5-11.0)
[2020-06-03] MEDS: morphine 4 MG/ML inj SYRINge IV PRN ×2 (19:47→21:47)
[2020-06-03 19:50] LABS: ALANINE AMINOTRANSFERASE 29 U/L (12-78); ALBUMIN 3.5 G/DL (3.4-5.0); ALKALINE PHOSPHATASE 74 IU/L (46-116); ANION GAP 7 (8-16); ASPARTATE AMINO TRANSFERASE 17 U/L (10-37); BILIRUBIN,TOTAL 0.4 MG/DL (0.1-1.0); BLOOD UREA NITROGEN 14 MG/DL (7-18); BUN/CREATININE RATIO 15.7 (6.6-38.0); CALCIUM 8.5 MG/DL (8.5-10.1); CHLORIDE 95 MMOL/L (99-107); CREATININE 0.89 MG/DL (0.40-0.90); GLUCOSE 110 MG/DL (70-104); POTASSIUM 3.3 MMOL/L (3.5-5.1); SODIUM 130 MMOL/L (135-145); TOTAL CARBON DIOXIDE 27.8 MMOL/L (24-32); TOTAL PROTEIN 7.1 G/DL (6.4-8.2); eGFR 65 ML/MIN
[2020-06-03] MEDS ORDERED: POTASSIUM BICARB 20meq eff tab 20 MEQ TABLET.EFF PO ONE (20:35)
[2020-06-03] MEDS ORDERED: LORazepam 2 mg/ml vial IV ONE (20:35)
--- NOTE | 2020-06-03 22:09 | NUR ---
PTS POA/SO JAME CALLED TO ASK ABOUT HOW SHE WILL TRANSPORT HOME FOR DISCHARGE. HE REPORTS "WELL YOU GUYS USUALLY GIVE HER A VOUCHER AND A TAXI...WE ARE IN ELECTRIC WHEELCHAIRS HERE AT HOME". I ASKED IF SHE CAN PAY FOR A TAXI, "WELL SHE HAS NOT MONEY FOR THAT". I ASKED HOW SHE USUALLY GETS AROUND, HE REPORTS "A CANE AND A WC". I ASKED IF SHE HAS A TRANSPORT SERVICE PROVIDED FOR HER TO GET AROUND, HE REPORTS "WE HAVE TO CALL 48 HRS IN ADVANCE TO USE IT". PT TO BE PROVIDED A HOSPITAL PAY RIDE HOME, TAIL BOARD MAN AWARE.
[2020-06-03 22:46] VITALS: BP 152/94
== END 2020-06-03 22:49 | disposition home or self-care (01) ==
LOC: ER 18:53
DX: G40.909 Epilepsy, unspecified, not intractable, without status epilepticus (principal); E87.6 Hypokalemia; I10 Essential (primary) hypertension; K21.9 Gastro-esophageal reflux disease without esophagitis; M19.90 Unspecified osteoarthritis, unspecified site; Z90.49 Acquired absence of other specified parts of digestive tract; Z98.51 Tubal ligation status; Z98.890 Other specified postprocedural states; Z79.899 Other long term (current) drug therapy; Z88.8 Allergy status to other drugs, medicaments and biological substances
CPT/HCPCS: 36415; 80053; 85025; 96374; 96375; 96376; 99285; J2060; J2270; J2405

== ENCOUNTER 2020-06-14 20:02 | Emergency (ER) | payer MEDICARE, MEDICAID ==
[~2020-06-14] VITALS: Ht 160 cm; Wt 150.0 kg
[2020-06-14 20:29] LABS: BASOPHILS # (AUTO) 0.1 X10'3 (0-0.2); EOSINOPHILS # (AUTO) 0.1 X10'3 (0-0.9); EOSINOPHILS % (AUTO) 1.3 % (0-6); HEMATOCRIT 36.5 % (35.0-45.0); HEMOGLOBIN 12.2 g/dl (12.0-16.0); LYMPHOCYTES # (AUTO) 1.9 X10'3 (1.1-4.8); LYMPHOCYTES % (AUTO) 16.6 % (21-51); MEAN CORPUSCULAR HEMOGLOBIN 28.1 PG (27.0-31.0); MEAN CORPUSCULAR HGB CONC 33.5 g/dL (33.0-36.5); MONOCYTES # (AUTO) 0.6 X10'3 (0-0.9); MONOCYTES % (AUTO) 5.7 % (2-12); NEUTROPHILS # (AUTO) 8.6 X10'3 (1.8-7.7); NEUTROPHILS % (AUTO) 75.4 % (42-75); PLATELET COUNT 382 X10'3 (140-440); RED BLOOD COUNT 4.34 X10'6 (4.20-5.60); RED CELL DISTRIBUTION WIDTH 15.4 % (11.5-14.5); WHITE BLOOD COUNT 11.4 X10'3 (4.5-11.0)
[2020-06-14 20:43] LABS: ALANINE AMINOTRANSFERASE 30 U/L (12-78); ALBUMIN 3.5 G/DL (3.4-5.0); ALBUMIN/GLOBULIN RATIO 0.9 (1.1-1.5); ALKALINE PHOSPHATASE 79 IU/L (46-116); ANION GAP 10 (8-16); ASPARTATE AMINO TRANSFERASE 15 U/L (10-37); BILIRUBIN,TOTAL 0.4 MG/DL (0.1-1.0); BLOOD UREA NITROGEN 16 MG/DL (7-18); BUN/CREATININE RATIO 17.6 (6.6-38.0); CALCIUM 8.8 MG/DL (8.5-10.1); CHLORIDE 95 MMOL/L (99-107); CREATININE 0.91 MG/DL (0.40-0.90); GLUCOSE 112 MG/DL (70-104); LIPASE < 50 U/L (73-393); POTASSIUM 3.1 MMOL/L (3.5-5.1); SODIUM 132 MMOL/L (135-145); TOTAL CARBON DIOXIDE 26.8 MMOL/L (24-32); TOTAL PROTEIN 7.4 G/DL (6.4-8.2); eGFR 63 ML/MIN
[2020-06-14] MEDS ORDERED: normal saline 1000ml 1,000 ML IV ONE (20:50)
[2020-06-14] MEDS ORDERED: LORazepam 2 mg/ml vial IV ONE ×2 (20:50→21:50)
[2020-06-14] MEDS ORDERED: potassium Cl 20 mEq SR tablet PO ONE (20:55)
[2020-06-14] MEDS ORDERED: LORazepam 1 MG tablet PO ONE (22:10)
[2020-06-14 22:15] VITALS: BP 144/83
== END 2020-06-14 22:14 | disposition home or self-care (01) ==
LOC: ER 20:03
DX: G40.909 Epilepsy, unspecified, not intractable, without status epilepticus (principal); I10 Essential (primary) hypertension; K21.9 Gastro-esophageal reflux disease without esophagitis; Z90.49 Acquired absence of other specified parts of digestive tract; Z98.51 Tubal ligation status; Z98.890 Other specified postprocedural states; Z88.8 Allergy status to other drugs, medicaments and biological substances; Z79.899 Other long term (current) drug therapy
CPT/HCPCS: 36415; 80053; 83605; 83690; 85025; 93005; 96374; 99284; J2060; J7030

== ENCOUNTER 2020-06-15 20:50 | Emergency (ER) | payer MEDICARE, MEDICAID ==
[~2020-06-15] VITALS: Ht 160 cm; Wt 129.6 kg
--- NOTE | 2020-06-15 21:40 | NUR ---
pt assisted to bsc to void and then back to her bed. voiding in bsc. urine collected. pts tierra lynn calling to talk with pt. pt now talking to him.
[2020-06-15 22:16] LABS: CLARITY,URINE CLEAR (Clear); COLOR,URINE YELLOW (Yellow); GLUCOSE, URINE NEGATIVE (Neg); KETONES,URINE NEGATIVE (Neg); LEUKOCYTE ESTERASE ,URINE NEGATIVE (Neg); NITRITES, URINE NEGATIVE (Neg); OCCULT BLOOD,URINE TRACE-INTACT (Neg); PROTEIN,URINE 30 mg/dl (Neg); UROBILINOGEN,URINE 0.2 E.U/dL (0.2-1.0)
[2020-06-15 22:18] LABS: UA COLLECTION TYPE NON-SPECIFIED
[2020-06-15 22:21] LABS: BACTERIA,URINE 3+ /HPF (Neg); SQUAMOUS EPITHELIAL CELL,UR MODERATE /LPF (FEW); WBC,URINE 0-4 /HPF (0-4)
[2020-06-15 22:37] LABS: BASOPHILS # (AUTO) 0.2 X10'3 (0-0.2); BASOPHILS % (AUTO) 1.2 % (0-1); EOSINOPHILS % (AUTO) 0.2 % (0-6); HEMATOCRIT 36.6 % (35.0-45.0); HEMOGLOBIN 12.2 g/dl (12.0-16.0); LYMPHOCYTES # (AUTO) 1.3 X10'3 (1.1-4.8); LYMPHOCYTES % (AUTO) 8.5 % (21-51); MEAN CORPUSCULAR HEMOGLOBIN 27.9 PG (27.0-31.0); MEAN CORPUSCULAR HGB CONC 33.2 g/dL (33.0-36.5); MEAN PLATELET VOLUME 7.3 FL (7.4-10.4); MONOCYTES # (AUTO) 0.8 X10'3 (0-0.9); MONOCYTES % (AUTO) 4.8 % (2-12); NEUTROPHILS # (AUTO) 13.3 X10'3 (1.8-7.7); NEUTROPHILS % (AUTO) 85.3 % (42-75); PLATELET COUNT 372 X10'3 (140-440); RED BLOOD COUNT 4.36 X10'6 (4.20-5.60); RED CELL DISTRIBUTION WIDTH 15.5 % (11.5-14.5); WHITE BLOOD COUNT 15.6 X10'3 (4.5-11.0)
[2020-06-15] MEDS ORDERED: morphine 5 MG/ML injection IV ONE (22:40)
[2020-06-15] MEDS ORDERED: morphine 10mg/ml inj. IV ONE (22:45)
[2020-06-15 22:48] LABS: ALANINE AMINOTRANSFERASE 30 U/L (12-78); ALBUMIN 3.6 G/DL (3.4-5.0); ALBUMIN/GLOBULIN RATIO 0.9 (1.1-1.5); ALKALINE PHOSPHATASE 78 IU/L (46-116); ANION GAP 6 (8-16); ASPARTATE AMINO TRANSFERASE 19 U/L (10-37); BILIRUBIN,TOTAL 0.4 MG/DL (0.1-1.0); BLOOD UREA NITROGEN 12 MG/DL (7-18); BUN/CREATININE RATIO 14.6 (6.6-38.0); CALCIUM 9.1 MG/DL (8.5-10.1); CHLORIDE 97 MMOL/L (99-107); CREATININE 0.82 MG/DL (0.40-0.90); GLUCOSE 123 MG/DL (70-104); POTASSIUM 3.1 MMOL/L (3.5-5.1); SODIUM 132 MMOL/L (135-145); TOTAL CARBON DIOXIDE 29.2 MMOL/L (24-32); TOTAL PROTEIN 7.4 G/DL (6.4-8.2); eGFR 71 ML/MIN
[2020-06-16 00:19] VITALS: BP 148/88
== END 2020-06-16 00:30 | disposition home or self-care (01) ==
LOC: ER 20:50
DX: G40.909 Epilepsy, unspecified, not intractable, without status epilepticus (principal); I10 Essential (primary) hypertension; K21.9 Gastro-esophageal reflux disease without esophagitis; M19.90 Unspecified osteoarthritis, unspecified site; Z90.49 Acquired absence of other specified parts of digestive tract; Z98.51 Tubal ligation status; Z98.890 Other specified postprocedural states; Z79.899 Other long term (current) drug therapy; Z88.8 Allergy status to other drugs, medicaments and biological substances; Z88.5 Allergy status to narcotic agent
CPT/HCPCS: 36415; 71045; 80053; 81001; 82948; 85025; 93005; 96374; 99285; J2270

== ENCOUNTER 2020-07-08 20:01 | Emergency (ER) | payer MEDICARE, MEDICAID ==
[~2020-07-08] VITALS: Ht 160 cm; Wt 118.2 kg
--- NOTE | 2020-07-08 21:20 | NUR ---
Staff nurses attempted twice to start IV access without success.
--- NOTE | 2020-07-08 22:04 | NUR ---
Dr. Arceo is with the patient at this time.
[2020-07-08] MEDS ORDERED: levetiracetam inj 1,000 MG in normal saline 100ml IV soln 90 ML IV STA (22:07)
[2020-07-08] MEDS ORDERED: normal saline 1000ML IV soln IVB ONE (22:10)
[2020-07-08] MEDS ORDERED: LORazepam 2 mg/ml vial IV ONE (22:10)
[2020-07-08] MEDS ORDERED: ketorolac trometh. 30mg/ml inj. IV ONE (22:10)
--- NOTE | 2020-07-08 22:11 | NUR ---
Pt assisted to the bedside commode to void urine.
[2020-07-08] MEDS ORDERED: levetiracetam-NS 1000mg/100ml 100 ML IV STA (22:14)
[2020-07-08 23:00] VITALS: BP 143/92
--- NOTE | 2020-07-09 01:39 | NUR ---
CALLED FOR A TAXI RIDE HOME FOR PT. EDUCATED PT AND SIGNIFICANT OTHER ON IMPORTANCE OF HAVING BACK UP PLANS FOR RIDES HOME FROM THE HOSPITAL.
== END 2020-07-09 02:41 | disposition home or self-care (01) ==
LOC: ER 20:02
DX: R56.9 Unspecified convulsions (principal); I10 Essential (primary) hypertension; K21.9 Gastro-esophageal reflux disease without esophagitis; M54.5 Low back pain; R51 Headache; Z98.51 Tubal ligation status; Z90.49 Acquired absence of other specified parts of digestive tract; Z98.890 Other specified postprocedural states; Z88.5 Allergy status to narcotic agent; Z88.8 Allergy status to other drugs, medicaments and biological substances; Z79.899 Other long term (current) drug therapy
CPT/HCPCS: 96374; 96375; 99284; J1885; J1953; J2060; J7030; 96365

== ENCOUNTER 2020-07-19 18:19 | Emergency (ER) | payer MEDICARE, MEDICAID ==
[~2020-07-19] VITALS: Ht 160 cm; Wt 121.7 kg
[2020-07-19] MEDS ORDERED: ketorolac trometh inj. 60 MG/2 ML VIAL IM ONE (20:15)
--- NOTE | 2020-07-19 20:33 | NUR ---
PTS JAME, [phone], CALLING AND GIVEN UPDATED. AWAITING FINAL CT READ OF HEAD AND THORACIC/LUMBAR. PT TO BE GIVEN SHOT OF TORDOL. REPORTS PT HAS NO WAY TO GET HOME AND WILL NEED US TO GET HER HOME. HE DOES NOT DRIVE AND THEY HAVE NO MONEY TO PAY FOR TAXI. CORRECTION WARDEN UPDATED.
[2020-07-19 20:35] VITALS: BP 145/80
--- NOTE | 2020-07-19 21:26 | NUR ---
FOR RIDE HOME
== END 2020-07-19 22:18 | disposition home or self-care (01) ==
LOC: ER 18:19
DX: R56.9 Unspecified convulsions (principal); I10 Essential (primary) hypertension; K21.9 Gastro-esophageal reflux disease without esophagitis; Z98.51 Tubal ligation status; Z90.49 Acquired absence of other specified parts of digestive tract; Z98.890 Other specified postprocedural states; Z88.5 Allergy status to narcotic agent; Z88.8 Allergy status to other drugs, medicaments and biological substances; Z79.899 Other long term (current) drug therapy
CPT/HCPCS: 70450; 72125; 72128; 72131; 93005; 96372; 99285; J1885

== ENCOUNTER 2020-07-29 17:24 | Emergency (ER) | payer MEDICARE, MEDICAID ==
[~2020-07-29] VITALS: Ht 160 cm; Wt 110.0 kg
[2020-07-29 19:09] LABS: BASOPHILS # (AUTO) 0.1 X10'3 (0-0.2); BASOPHILS % (AUTO) 0.5 % (0-1); EOSINOPHILS # (AUTO) 0.1 X10'3 (0-0.9); EOSINOPHILS % (AUTO) 0.9 % (0-6); HEMATOCRIT 37.3 % (35.0-45.0); HEMOGLOBIN 12.1 g/dl (12.0-16.0); LYMPHOCYTES % (AUTO) 8.3 % (21-51); MEAN CORPUSCULAR HEMOGLOBIN 27.3 PG (27.0-31.0); MEAN CORPUSCULAR HGB CONC 32.5 g/dL (33.0-36.5); MEAN CORPUSCULAR VOLUME 84.2 FL (78-98); MEAN PLATELET VOLUME 7.3 FL (7.4-10.4); MONOCYTES # (AUTO) 0.6 X10'3 (0-0.9); MONOCYTES % (AUTO) 4.9 % (2-12); NEUTROPHILS # (AUTO) 10.3 X10'3 (1.8-7.7); NEUTROPHILS % (AUTO) 85.4 % (42-75); PLATELET COUNT 390 X10'3 (140-440); RED BLOOD COUNT 4.43 X10'6 (4.20-5.60); RED CELL DISTRIBUTION WIDTH 15.8 % (11.5-14.5)
[2020-07-29] MEDS ORDERED: SODIUM CHLORIDE IV STA (19:12)
[2020-07-29] MEDS ORDERED: LEVETIRACETAM IV STA (19:12)
[2020-07-29] MEDS ORDERED: ketorolac tromethamine 15mg/ml inj. IV ONE (19:15)
[2020-07-29] MEDS ORDERED: LACOSAMIDE 50 MG TABLET PO STA (19:17)
[2020-07-29 19:23] LABS: ALANINE AMINOTRANSFERASE 27 U/L (12-78); ALBUMIN 3.5 G/DL (3.4-5.0); ALBUMIN/GLOBULIN RATIO 0.9 (1.1-1.5); ALKALINE PHOSPHATASE 78 IU/L (46-116); ANION GAP 8 (8-16); ASPARTATE AMINO TRANSFERASE 17 U/L (10-37); BILIRUBIN,TOTAL 0.4 MG/DL (0.1-1.0); BLOOD UREA NITROGEN 17 MG/DL (7-18); BUN/CREATININE RATIO 15.6 (6.6-38.0); CALCIUM 8.7 MG/DL (8.5-10.1); CHLORIDE 97 MMOL/L (99-107); CREATININE 1.09 MG/DL (0.40-0.90); GLUCOSE 139 MG/DL (70-104); MAGNESIUM 1.5 MG/DL (1.5-2.4); POTASSIUM 3.3 MMOL/L (3.5-5.1); SODIUM 134 MMOL/L (135-145); TOTAL CARBON DIOXIDE 29.2 MMOL/L (24-32); TOTAL PROTEIN 7.3 G/DL (6.4-8.2); eGFR 51 ML/MIN
[2020-07-29 21:32] VITALS: BP 127/75
[2020-07-30] MEDS ORDERED: LORA2TAB96 PO (21:30)
== END 2020-07-29 21:34 | disposition home or self-care (01) ==
LOC: ER 17:25
DX: R56.9 Unspecified convulsions (principal); I10 Essential (primary) hypertension; K21.9 Gastro-esophageal reflux disease without esophagitis; Z98.51 Tubal ligation status; Z90.49 Acquired absence of other specified parts of digestive tract; Z98.890 Other specified postprocedural states; Z88.5 Allergy status to narcotic agent; Z88.8 Allergy status to other drugs, medicaments and biological substances; Z79.899 Other long term (current) drug therapy
CPT/HCPCS: 36415; 80053; 83735; 85025; 96374; 96375; 99284; J1885; J1953; 96365

== ENCOUNTER 2020-07-30 10:15 | Emergency (ER) | payer MEDICARE, MEDICAID ==
[~2020-07-30] VITALS: Ht 160 cm; Wt 114.0 kg
--- NOTE | 2020-07-30 10:52 | NUR ---
Dr. Silva at bedside saw patient yesterday in the ER for seizures. The patient confirms she took all of her medications this morning and it is normal for her to still have seizures daily. The patient states that [facility] wanted her to come in for a head CT. The patient was sent for the CT but per Dr. Silva this is not a stroke r/o
[2020-07-30 11:25] LABS: BASOPHILS # (AUTO) 0.1 X10'3 (0-0.2); BASOPHILS % (AUTO) 0.6 % (0-1); EOSINOPHILS % (AUTO) 0.4 % (0-6); HEMATOCRIT 37.2 % (35.0-45.0); HEMOGLOBIN 12.5 g/dl (12.0-16.0); LYMPHOCYTES # (AUTO) 1.1 X10'3 (1.1-4.8); LYMPHOCYTES % (AUTO) 12.1 % (21-51); MEAN CORPUSCULAR HEMOGLOBIN 28.3 PG (27.0-31.0); MEAN CORPUSCULAR HGB CONC 33.6 g/dL (33.0-36.5); MEAN CORPUSCULAR VOLUME 84.4 FL (78-98); MEAN PLATELET VOLUME 7.3 FL (7.4-10.4); MONOCYTES # (AUTO) 0.3 X10'3 (0-0.9); MONOCYTES % (AUTO) 3.4 % (2-12); NEUTROPHILS # (AUTO) 7.9 X10'3 (1.8-7.7); NEUTROPHILS % (AUTO) 83.5 % (42-75); PLATELET COUNT 388 X10'3 (140-440); RED BLOOD COUNT 4.41 X10'6 (4.20-5.60); RED CELL DISTRIBUTION WIDTH 15.8 % (11.5-14.5); WHITE BLOOD COUNT 9.5 X10'3 (4.5-11.0)
[2020-07-30 11:43] LABS: ALANINE AMINOTRANSFERASE 28 U/L (12-78); ALBUMIN 3.7 G/DL (3.4-5.0); ALBUMIN/GLOBULIN RATIO 0.9 (1.1-1.5); ALKALINE PHOSPHATASE 75 IU/L (46-116); ANION GAP 8 (8-16); ASPARTATE AMINO TRANSFERASE 20 U/L (10-37); BILIRUBIN,TOTAL 0.4 MG/DL (0.1-1.0); BLOOD UREA NITROGEN 17 MG/DL (7-18); BUN/CREATININE RATIO 20.7 (6.6-38.0); CALCIUM 9.2 MG/DL (8.5-10.1); CHLORIDE 98 MMOL/L (99-107); CREATININE 0.82 MG/DL (0.40-0.90); GLUCOSE 100 MG/DL (70-104); POTASSIUM 3.3 MMOL/L (3.5-5.1); SODIUM 135 MMOL/L (135-145); TOTAL CARBON DIOXIDE 29.5 MMOL/L (24-32); TOTAL PROTEIN 7.6 G/DL (6.4-8.2); eGFR 71 ML/MIN
[2020-07-30 12:34] VITALS: BP 144/80
[2020-07-30] MEDS ORDERED: LORA2TAB96 PO (21:30)
== END 2020-07-30 12:44 | disposition home or self-care (01) ==
LOC: ER 10:16
DX: R56.9 Unspecified convulsions (principal); I10 Essential (primary) hypertension; K21.9 Gastro-esophageal reflux disease without esophagitis; Z90.49 Acquired absence of other specified parts of digestive tract; Z98.51 Tubal ligation status; Z98.890 Other specified postprocedural states; Z88.5 Allergy status to narcotic agent; Z88.6 Allergy status to analgesic agent; Z88.8 Allergy status to other drugs, medicaments and biological substances; Z79.899 Other long term (current) drug therapy
CPT/HCPCS: 70450; 80053; 82948; 85025; 93005; 99285

== ENCOUNTER 2020-07-30 18:58 | Emergency (ER) | payer MEDICARE, MEDICAID ==
[~2020-07-30] VITALS: Ht 160 cm; Wt 115.0 kg
[2020-07-30 19:25] LABS: EOSINOPHILS # (AUTO) 0.1 X10'3 (0-0.9); HEMOGLOBIN 12.3 g/dl (12.0-16.0); MONOCYTES # (AUTO) 0.6 X10'3 (0-0.9); WHITE BLOOD COUNT 10.9 X10'3 (4.5-11.0)
[2020-07-30 19:26] LABS: BASOPHILS # (AUTO) 0.1 X10'3 (0-0.2); BASOPHILS % (AUTO) 1.1 % (0-1); LYMPHOCYTES # (AUTO) 1.8 X10'3 (1.1-4.8); LYMPHOCYTES % (AUTO) 16.1 % (21-51); MEAN CORPUSCULAR HEMOGLOBIN 27.9 PG (27.0-31.0); MEAN CORPUSCULAR HGB CONC 33.2 g/dL (33.0-36.5); MEAN PLATELET VOLUME 7.2 FL (7.4-10.4); MONOCYTES % (AUTO) 5.7 % (2-12); NEUTROPHILS # (AUTO) 8.3 X10'3 (1.8-7.7); NEUTROPHILS % (AUTO) 76.1 % (42-75); PLATELET COUNT 413 X10'3 (140-440); RED CELL DISTRIBUTION WIDTH 15.5 % (11.5-14.5)
[2020-07-30 19:29] LABS: ALBUMIN 3.7 G/DL (3.4-5.0); ANION GAP 7 (8-16); BLOOD UREA NITROGEN 16 MG/DL (7-18); BUN/CREATININE RATIO 15.1 (6.6-38.0); CALCIUM 9.2 MG/DL (8.5-10.1); CHLORIDE 96 MMOL/L (99-107); CREATININE 1.06 MG/DL (0.40-0.90); GLUCOSE 124 MG/DL (70-104); SODIUM 132 MMOL/L (135-145); TOTAL CARBON DIOXIDE 29.4 MMOL/L (24-32); eGFR 53 ML/MIN
[2020-07-30 19:40] LABS: POTASSIUM 2.9 MMOL/L (3.5-5.1)
[2020-07-30] MEDS ORDERED: potassium Cl 20 mEq SR tablet PO ONE (19:45)
[2020-07-30] MEDS: potassium Cl 10 mEq/100mL bag IV SCH ×2 (19:49→21:23)
[2020-07-30] MEDS ORDERED: levetiracetam inj 1,000 MG in normal saline 100ml IV soln 90 ML IV SCH (20:35)
[2020-07-30] MEDS ORDERED: levetiracetam-NS 1000mg/100ml 100 ML IV SCH ×2 (20:37→21:00)
[2020-07-30] MEDS ORDERED: ketorolac trometh. 30mg/ml inj. IV ONE (21:10)
[2020-07-30 21:11] LABS: CLARITY,URINE CLEAR (Clear); COLOR,URINE YELLOW (Yellow); GLUCOSE, URINE NEGATIVE (Neg); KETONES,URINE NEGATIVE (Neg); LEUKOCYTE ESTERASE ,URINE NEGATIVE (Neg); NITRITES, URINE NEGATIVE (Neg); OCCULT BLOOD,URINE TRACE-INTACT (Neg); PROTEIN,URINE NEGATIVE (Neg); UROBILINOGEN,URINE 0.2 E.U/dL (0.2-1.0)
[2020-07-30 21:12] LABS: UA COLLECTION TYPE CLN CATCH MIDSTREAM
[2020-07-30 21:22] LABS: URINE AMPHETAMINE SCREEN NEGATIVE (Neg); URINE BARBITUATE SCREEN NEGATIVE (Neg); URINE BENZODIAZEPINES SCREEN POSITIVE (Neg); URINE CANNABINOID SCREEN NEGATIVE (Neg); URINE COCAINE SCREEN NEGATIVE (Neg); URINE METHADONE SCREEN NEGATIVE (Neg); URINE OPIATE SCREEN NEGATIVE (Neg); URINE PHENCYCLIDINE SCREEN NEGATIVE (Neg)
[2020-07-30] MEDS ORDERED: LORA2TAB96 PO (21:30)
[2020-07-30] MEDS ORDERED: LORazepam 2 mg/ml vial IV ONE (21:30)
[2020-07-30 21:32] LABS: BACTERIA,URINE FEW /HPF (Neg); MUCUS STRANDS NONE SEEN /LPF (Neg); RBC,URINE 0-2 /HPF (0-2); SQUAMOUS EPITHELIAL CELL,UR FEW /LPF (FEW); WBC,URINE 0-4 /HPF (0-4)
[2020-07-30 22:24] VITALS: BP 152/89
--- NOTE | 2020-07-30 22:25 | NUR ---
CALLED [facility] AT 20:25 ETA 20 MINS
[2020-07-31] MEDS ORDERED: levetiracetam inj 1,000 MG in normal saline 100ml IV soln 90 ML IV SCH (08:00)
== END 2020-07-30 22:25 | disposition home or self-care (01) ==
LOC: ER 18:59
DX: G40.909 Epilepsy, unspecified, not intractable, without status epilepticus (principal); I10 Essential (primary) hypertension; K21.9 Gastro-esophageal reflux disease without esophagitis; Z90.49 Acquired absence of other specified parts of digestive tract; Z98.51 Tubal ligation status; Z98.890 Other specified postprocedural states; Z88.5 Allergy status to narcotic agent; Z88.6 Allergy status to analgesic agent; Z88.8 Allergy status to other drugs, medicaments and biological substances; Z79.899 Other long term (current) drug therapy
CPT/HCPCS: 36415; 80048; 80305; 81001; 85025; 93005; 96361; 96374; 96375; 99285; J1885; J1953; J2060; J3480; 96365

== ENCOUNTER 2020-07-31 20:27 | Emergency (ER) | payer MEDICARE, MEDICAID ==
[~2020-07-31] VITALS: Ht 160 cm; Wt 115.0 kg
[~2020-07-31 20:27] MED LIST changes: +LORA2TAB96 PO
[2020-07-31] MEDS ORDERED: LORazepam 1 MG tablet PO ONE (22:40)
[2020-07-31] MEDS ORDERED: ketorolac tromethamine 15mg/ml inj. IM ONE (22:40)
[2020-07-31 23:16] LABS: ALANINE AMINOTRANSFERASE 26 U/L (12-78); ALBUMIN 3.8 G/DL (3.4-5.0); ALKALINE PHOSPHATASE 77 IU/L (46-116); ANION GAP 7 (8-16); ASPARTATE AMINO TRANSFERASE 17 U/L (10-37); BILIRUBIN,TOTAL 0.5 MG/DL (0.1-1.0); BLOOD UREA NITROGEN 14 MG/DL (7-18); BUN/CREATININE RATIO 18.2 (6.6-38.0); CALCIUM 8.9 MG/DL (8.5-10.1); CHLORIDE 90 MMOL/L (99-107); CREATININE 0.77 MG/DL (0.40-0.90); GLUCOSE 105 MG/DL (70-104); POTASSIUM 3.2 MMOL/L (3.5-5.1); SODIUM 126 MMOL/L (135-145); TOTAL CARBON DIOXIDE 28.6 MMOL/L (24-32); TOTAL PROTEIN 7.6 G/DL (6.4-8.2); TROPONIN I < 0.04 NG/ML (0.0-0.05); eGFR 76 ML/MIN
[2020-08-01 01:41] VITALS: BP 134/70
== END 2020-08-01 01:50 | disposition home or self-care (01) ==
LOC: ER 20:28
DX: G43.909 Migraine, unspecified, not intractable, without status migrainosus (principal); E87.1 Hypo-osmolality and hyponatremia; R07.89 Other chest pain; I10 Essential (primary) hypertension; K21.9 Gastro-esophageal reflux disease without esophagitis; Z86.69 Personal history of other diseases of the nervous system and sense organs; Z90.49 Acquired absence of other specified parts of digestive tract; Z98.51 Tubal ligation status; Z98.890 Other specified postprocedural states; Z88.5 Allergy status to narcotic agent; Z88.8 Allergy status to other drugs, medicaments and biological substances; Z79.899 Other long term (current) drug therapy
CPT/HCPCS: 36415; 80053; 84484; 93005; 96372; 99285; J1885

== ENCOUNTER 2020-08-05 21:38 | Emergency (ER) | payer MEDICARE, MEDICAID ==
[~2020-08-05] VITALS: Ht 167.6 cm; Wt 113.6 kg
[2020-08-05] MEDS ORDERED: HYDROcodone/acetaminophen 5mg/325mg tablet PO ONE (22:35)
[2020-08-05 22:45] VITALS: BP 134/75
== END 2020-08-05 22:47 | disposition home or self-care (01) ==
LOC: ER 21:39
DX: R51 Headache (principal); I10 Essential (primary) hypertension; K21.9 Gastro-esophageal reflux disease without esophagitis; Z86.69 Personal history of other diseases of the nervous system and sense organs; Z90.49 Acquired absence of other specified parts of digestive tract; Z98.51 Tubal ligation status; Z98.890 Other specified postprocedural states; Z88.5 Allergy status to narcotic agent; Z88.8 Allergy status to other drugs, medicaments and biological substances; Z79.899 Other long term (current) drug therapy
CPT/HCPCS: 99283

== ENCOUNTER 2020-08-11 14:04 | Emergency (ER) | payer MEDICARE, MEDICAID ==
[~2020-08-11] VITALS: Ht 160 cm; Wt 127.3 kg
--- NOTE | 2020-08-11 16:25 | NUR ---
Phoned to inquire about the status of the Taxi and [facility] reports the ETA is approximately 15 minutes.
[2020-08-11 16:38] VITALS: BP 137/74
== END 2020-08-11 16:35 | disposition home or self-care (01) ==
LOC: ER 14:04
DX: G40.909 Epilepsy, unspecified, not intractable, without status epilepticus (principal); I10 Essential (primary) hypertension; K21.9 Gastro-esophageal reflux disease without esophagitis; Z90.49 Acquired absence of other specified parts of digestive tract; Z98.51 Tubal ligation status; Z98.890 Other specified postprocedural states; Z88.5 Allergy status to narcotic agent; Z88.8 Allergy status to other drugs, medicaments and biological substances; Z79.899 Other long term (current) drug therapy
CPT/HCPCS: 99284

== ENCOUNTER 2020-08-19 19:03 | Emergency (ER) | payer MEDICARE, MEDICAID ==
[~2020-08-19] VITALS: Ht 160 cm; Wt 127.3 kg
--- NOTE | 2020-08-19 19:09 | NUR ---
Sundar ross in ED - 08/19/20 at 2051 by MARGARITA spouse gave her 2.5 mg of lorazepam
--- NOTE | 2020-08-19 20:44 | NUR ---
Pt has not had any seizure activty while in department. Pt has no complaints or needs at this time.
--- NOTE | 2020-08-19 20:53 | NUR ---
Pt was given 2.5 mg Lorazepam ~ 1430 today per Pt's spouse.
[2020-08-19] MEDS ORDERED: LORazepam 2 mg/ml vial IV ONE (21:50)
[2020-08-19 22:15] LABS: HEMOGLOBIN 12.6 g/dl (12.0-16.0); LYMPHOCYTES # (AUTO) 1.1 X10'3 (1.1-4.8); MONOCYTES # (AUTO) 0.5 X10'3 (0-0.9); NEUTROPHILS % (AUTO) 87.3 % (42-75); RED CELL DISTRIBUTION WIDTH 15.8 % (11.5-14.5)
[2020-08-19 22:17] LABS: BASOPHILS % (AUTO) 0.1 % (0-1); EOSINOPHILS % (AUTO) 0.2 % (0-6); HEMATOCRIT 37.4 % (35.0-45.0); LYMPHOCYTES % (AUTO) 8.7 % (21-51); MEAN CORPUSCULAR HEMOGLOBIN 28.3 PG (27.0-31.0); MEAN CORPUSCULAR HGB CONC 33.7 g/dL (33.0-36.5); MEAN CORPUSCULAR VOLUME 84.1 FL (78-98); MEAN PLATELET VOLUME 7.3 FL (7.4-10.4); MONOCYTES % (AUTO) 3.7 % (2-12); NEUTROPHILS # (AUTO) 11.5 X10'3 (1.8-7.7); PLATELET COUNT 370 X10'3 (140-440); RED BLOOD COUNT 4.45 X10'6 (4.20-5.60); WHITE BLOOD COUNT 13.1 X10'3 (4.5-11.0)
[2020-08-19 22:32] LABS: ALANINE AMINOTRANSFERASE 28 U/L (12-78); ALBUMIN 3.7 G/DL (3.4-5.0); ALBUMIN/GLOBULIN RATIO 0.9 (1.1-1.5); ALKALINE PHOSPHATASE 81 IU/L (46-116); ANION GAP 7 (8-16); ASPARTATE AMINO TRANSFERASE 15 U/L (10-37); BILIRUBIN,TOTAL 0.3 MG/DL (0.1-1.0); BLOOD UREA NITROGEN 16 MG/DL (7-18); BUN/CREATININE RATIO 15.1 (6.6-38.0); CALCIUM 9.6 MG/DL (8.5-10.1); CHLORIDE 97 MMOL/L (99-107); CREATININE 1.06 MG/DL (0.40-0.90); GLUCOSE 126 MG/DL (70-104); POTASSIUM 3.4 MMOL/L (3.5-5.1); SODIUM 133 MMOL/L (135-145); TOTAL PROTEIN 7.7 G/DL (6.4-8.2); eGFR 53 ML/MIN
--- NOTE | 2020-08-19 22:55 | NUR ---
Still no observed seizure activity from Pt.
[2020-08-19] MEDS ORDERED: potassium Cl 20 mEq SR tablet PO ONE (23:00)
[2020-08-19] MEDS ORDERED: POTASSIUM BICARB 20meq eff tab 20 MEQ TABLET.EFF PO ONE (23:10)
[2020-08-19 23:40] VITALS: BP 139/78
== END 2020-08-19 23:30 | disposition home or self-care (01) ==
LOC: ER 19:04
DX: R56.9 Unspecified convulsions (principal); R51.9 Headache, unspecified; I10 Essential (primary) hypertension; K21.9 Gastro-esophageal reflux disease without esophagitis; Z90.49 Acquired absence of other specified parts of digestive tract; Z98.51 Tubal ligation status; Z98.890 Other specified postprocedural states; Z88.5 Allergy status to narcotic agent; Z88.6 Allergy status to analgesic agent; Z88.8 Allergy status to other drugs, medicaments and biological substances; Z79.899 Other long term (current) drug therapy
CPT/HCPCS: 36415; 80053; 82948; 85025; 93005; 96374; 99285; J2060

== ENCOUNTER → 2020-08-21 | Emergency (ER) | payer MEDICARE, MEDICAID ==
[~2020-08-21] VITALS: Ht 160 cm; Wt 118.2 kg
[~2020-08-21] MED LIST changes: +acetaminophen 325mg tablet PO ONE; +ondansetron 4mg rapidly disintigrating tab PO ONE
--- NOTE | 2020-08-21 01:39 | NUR ---
PT C/O SILVERIO. HAD SPOKE TO HER ABOUT HER SAWYER AND HE IS AWARE. SHE TOLD ME SHE WANTS SOMETHING FOR NAUSEA SO HE WAS TOLD AND HE IS GOING TO ORDER A ZOFRAN.
[2020-08-21 01:54] VITALS: BP 141/83
== END | disposition home or self-care (01) ==
LOC: ER 01:17
DX: R07.89 Other chest pain (principal); R06.02 Shortness of breath; I10 Essential (primary) hypertension; K21.9 Gastro-esophageal reflux disease without esophagitis; Z86.69 Personal history of other diseases of the nervous system and sense organs; Z98.51 Tubal ligation status; Z90.49 Acquired absence of other specified parts of digestive tract; Z98.890 Other specified postprocedural states; Z88.5 Allergy status to narcotic agent; Z88.6 Allergy status to analgesic agent; Z88.8 Allergy status to other drugs, medicaments and biological substances; Z79.899 Other long term (current) drug therapy
CPT/HCPCS: 71045; 93005; 99283

== ENCOUNTER 2020-09-02 20:39 | Emergency (ER) | payer MEDICARE, MEDICAID ==
[~2020-09-02] VITALS: Ht 160 cm; Wt 109.1 kg
[~2020-09-02 20:39] MED LIST changes: -acetaminophen 325mg tablet PO ONE; -ondansetron 4mg rapidly disintigrating tab PO ONE
[2020-09-02 22:07] LABS: ALANINE AMINOTRANSFERASE 23 U/L (12-78); ALBUMIN 3.5 G/DL (3.4-5.0); ALBUMIN/GLOBULIN RATIO 0.9 (1.1-1.5); ALKALINE PHOSPHATASE 75 IU/L (46-116); ANION GAP 9 (8-16); ASPARTATE AMINO TRANSFERASE 13 U/L (10-37); BASOPHILS # (AUTO) 0.2 X10'3 (0-0.2); BASOPHILS % (AUTO) 1.6 % (0-1); BILIRUBIN,TOTAL 0.2 MG/DL (0.1-1.0); BLOOD UREA NITROGEN 20 MG/DL (7-18); BUN/CREATININE RATIO 21.5 (6.6-38.0); CALCIUM 9.1 MG/DL (8.5-10.1); CHLORIDE 97 MMOL/L (99-107); CREATININE 0.93 MG/DL (0.40-0.90); EOSINOPHILS # (AUTO) 0.2 X10'3 (0-0.9); EOSINOPHILS % (AUTO) 1.4 % (0-6); GLUCOSE 143 MG/DL (70-104); HEMATOCRIT 36.7 % (35.0-45.0); HEMOGLOBIN 12.2 g/dl (12.0-16.0); LYMPHOCYTES # (AUTO) 1.2 X10'3 (1.1-4.8); LYMPHOCYTES % (AUTO) 10.5 % (21-51); MEAN CORPUSCULAR HEMOGLOBIN 28.1 PG (27.0-31.0); MEAN CORPUSCULAR HGB CONC 33.2 g/dL (33.0-36.5); MEAN CORPUSCULAR VOLUME 84.6 FL (78-98); MEAN PLATELET VOLUME 7.1 FL (7.4-10.4); MONOCYTES # (AUTO) 0.6 X10'3 (0-0.9); MONOCYTES % (AUTO) 5.4 % (2-12); NEUTROPHILS # (AUTO) 9.4 X10'3 (1.8-7.7); NEUTROPHILS % (AUTO) 81.1 % (42-75); PLATELET COUNT 397 X10'3 (140-440); POTASSIUM 3.1 MMOL/L (3.5-5.1); RED BLOOD COUNT 4.33 X10'6 (4.20-5.60); RED CELL DISTRIBUTION WIDTH 15.6 % (11.5-14.5); SODIUM 135 MMOL/L (135-145); TOTAL CARBON DIOXIDE 29.3 MMOL/L (24-32); TOTAL PROTEIN 7.4 G/DL (6.4-8.2); WHITE BLOOD COUNT 11.5 X10'3 (4.5-11.0); eGFR 61 ML/MIN
[2020-09-02] MEDS ORDERED: potassium Cl 20 mEq SR tablet PO STA (22:38)
[2020-09-02] MEDS ORDERED: acetaminophen 325mg tablet PO ONE (22:40)
[2020-09-02] MEDS ORDERED: fentaNYL/PF 50MCG/1 ML 2ML syringe IV ONE (22:40)
[2020-09-02 22:51] VITALS: BP 135/82
== END 2020-09-02 23:22 | disposition home or self-care (01) ==
LOC: ER 20:40
DX: R56.9 Unspecified convulsions (principal); I10 Essential (primary) hypertension; K21.9 Gastro-esophageal reflux disease without esophagitis; Z90.49 Acquired absence of other specified parts of digestive tract; Z98.51 Tubal ligation status; Z98.890 Other specified postprocedural states; Z88.6 Allergy status to analgesic agent; Z88.5 Allergy status to narcotic agent; Z88.8 Allergy status to other drugs, medicaments and biological substances; Z79.899 Other long term (current) drug therapy
CPT/HCPCS: 36415; 80053; 85025; 93005; 96374; 99284; J3010

== ENCOUNTER 2020-09-03 18:10 | Emergency (ER) | payer MEDICARE, MEDICAID ==
[~2020-09-03] VITALS: Ht 160 cm; Wt 118.2 kg
--- NOTE | 2020-09-03 18:46 | NUR ---
Pt's spouse phoned to inquire about the status of the patient. Received verbal permission from the patient to speak with her spouse prior to speaking with him. Spouse given update and patient is aware.
[2020-09-03] MEDS ORDERED: LORazepam 2 mg/ml vial IV ONE (19:05)
[2020-09-03] MEDS ORDERED: ondansetron/PF 4mg/2ml inj IV ONE (19:40)
[2020-09-03] MEDS ORDERED: acetaminophen 325mg tablet PO ONE (19:40)
[2020-09-03] MEDS ORDERED: normal saline 1000ml 1,000 ML IV ONE ×2 (19:40→20:20)
[2020-09-03 20:03] LABS: BASOPHILS # (AUTO) 0.2 X10'3 (0-0.2); BASOPHILS % (AUTO) 1.4 % (0-1); EOSINOPHILS % (AUTO) 0.3 % (0-6); HEMOGLOBIN 12.3 g/dl (12.0-16.0); LYMPHOCYTES # (AUTO) 1.2 X10'3 (1.1-4.8); LYMPHOCYTES % (AUTO) 9.2 % (21-51); MEAN CORPUSCULAR HEMOGLOBIN 27.9 PG (27.0-31.0); MEAN CORPUSCULAR HGB CONC 33.4 g/dL (33.0-36.5); MEAN CORPUSCULAR VOLUME 83.6 FL (78-98); MEAN PLATELET VOLUME 7.1 FL (7.4-10.4); MONOCYTES # (AUTO) 0.6 X10'3 (0-0.9); MONOCYTES % (AUTO) 5.1 % (2-12); NEUTROPHILS # (AUTO) 10.7 X10'3 (1.8-7.7); PLATELET COUNT 416 X10'3 (140-440); RED BLOOD COUNT 4.42 X10'6 (4.20-5.60); WHITE BLOOD COUNT 12.8 X10'3 (4.5-11.0)
[2020-09-03 20:11] LABS: ALANINE AMINOTRANSFERASE 28 U/L (12-78); ALBUMIN 3.6 G/DL (3.4-5.0); ALBUMIN/GLOBULIN RATIO 0.9 (1.1-1.5); ALKALINE PHOSPHATASE 78 IU/L (46-116); ANION GAP 7 (8-16); ASPARTATE AMINO TRANSFERASE 15 U/L (10-37); BILIRUBIN,TOTAL 0.3 MG/DL (0.1-1.0); BLOOD UREA NITROGEN 18 MG/DL (7-18); BUN/CREATININE RATIO 22.2 (6.6-38.0); CALCIUM 9.1 MG/DL (8.5-10.1); CHLORIDE 96 MMOL/L (99-107); CREATININE 0.81 MG/DL (0.40-0.90); GLUCOSE 123 MG/DL (70-104); POTASSIUM 3.2 MMOL/L (3.5-5.1); SODIUM 134 MMOL/L (135-145); TOTAL CARBON DIOXIDE 30.8 MMOL/L (24-32); TOTAL PROTEIN 7.5 G/DL (6.4-8.2); eGFR 72 ML/MIN
[2020-09-03] MEDS ORDERED: potassium Cl 20 mEq SR tablet PO ONE (20:20)
[2020-09-03 22:27] LABS: CLARITY,URINE CLEAR (Clear); COLOR,URINE YELLOW (Yellow); GLUCOSE, URINE NEGATIVE (Neg); KETONES,URINE NEGATIVE (Neg); LEUKOCYTE ESTERASE ,URINE NEGATIVE (Neg); NITRITES, URINE NEGATIVE (Neg); OCCULT BLOOD,URINE TRACE-INTACT (Neg); PROTEIN,URINE NEGATIVE (Neg); UROBILINOGEN,URINE 0.2 E.U/dL (0.2-1.0)
[2020-09-03 22:28] LABS: UA COLLECTION TYPE CLN CATCH MIDSTREAM
[2020-09-03 22:49] LABS: BACTERIA,URINE FEW /HPF (Neg); MUCUS STRANDS NONE SEEN /LPF (Neg); RBC,URINE 0-2 /HPF (0-2); SQUAMOUS EPITHELIAL CELL,UR MODERATE /LPF (FEW); WBC,URINE 0-4 /HPF (0-4)
[2020-09-03 23:21] VITALS: BP 150/87
== END 2020-09-03 23:24 | disposition home or self-care (01) ==
LOC: ER 18:10
DX: G40.909 Epilepsy, unspecified, not intractable, without status epilepticus (principal); I10 Essential (primary) hypertension; K21.9 Gastro-esophageal reflux disease without esophagitis; Z90.49 Acquired absence of other specified parts of digestive tract; Z98.51 Tubal ligation status; Z98.890 Other specified postprocedural states; Z88.5 Allergy status to narcotic agent; Z88.8 Allergy status to other drugs, medicaments and biological substances; Z79.899 Other long term (current) drug therapy
CPT/HCPCS: 36415; 80053; 81001; 85025; 93005; 96361; 96374; 96375; 99285; J2060; J2405; J7030; 96365

== ENCOUNTER 2020-09-04 11:42 | Emergency (ER) | payer MEDICARE, MEDICAID ==
[~2020-09-04] VITALS: Ht 160 cm; Wt 109.0 kg
[2020-09-04] MEDS ORDERED: acetaminophen 325mg tablet PO ONE (14:30)
[2020-09-04] MEDS ORDERED: levetiracetam 250mg tablet PO ONE (14:50)
[2020-09-04 15:35] VITALS: BP 168/88
[2020-09-09 15:12] LABS: LAMOTRIGINE, SERUM <1.0 ug/mL (2.0-20.0)
== END 2020-09-04 15:36 | disposition home or self-care (01) ==
LOC: ER 11:43
DX: G40.89 Other seizures (principal); R56.9 Unspecified convulsions; R06.02 Shortness of breath; R51.9 Headache, unspecified; I10 Essential (primary) hypertension; K21.9 Gastro-esophageal reflux disease without esophagitis; Z90.49 Acquired absence of other specified parts of digestive tract; Z98.51 Tubal ligation status; Z98.890 Other specified postprocedural states; Z88.5 Allergy status to narcotic agent; Z88.6 Allergy status to analgesic agent; Z88.8 Allergy status to other drugs, medicaments and biological substances; Z79.899 Other long term (current) drug therapy
CPT/HCPCS: 36415; 80177; 82542; 99284

== ENCOUNTER 2020-09-04 18:33 | Emergency (ER) | payer MEDICARE, MEDICAID ==
[~2020-09-04] VITALS: Ht 160 cm; Wt 119.0 kg
[2020-09-04 18:55] VITALS: BP 156/91
[2020-09-04] MEDS ORDERED: diazepam 5mg tablet PO ONE (19:05)
== END 2020-09-04 19:48 | disposition home or self-care (01) ==
LOC: ER 18:33
DX: G40.89 Other seizures (principal); R19.7 Diarrhea, unspecified; I10 Essential (primary) hypertension; K21.9 Gastro-esophageal reflux disease without esophagitis; Z90.49 Acquired absence of other specified parts of digestive tract; Z98.51 Tubal ligation status; Z98.890 Other specified postprocedural states; Z88.5 Allergy status to narcotic agent; Z88.6 Allergy status to analgesic agent; Z88.8 Allergy status to other drugs, medicaments and biological substances; Z79.899 Other long term (current) drug therapy
CPT/HCPCS: 99284

== ENCOUNTER 2020-09-14 19:24 | Emergency (ER) | payer MEDICARE, MEDICAID ==
[~2020-09-14] VITALS: Ht 157.5 cm; Wt 120.0 kg
[2020-09-14] MEDS ORDERED: normal saline 1000ML IV soln IVB ONE (19:35)
[2020-09-14] MEDS ORDERED: metoclopramide 5 mg/ml inj IV ONE (19:35)
[2020-09-14] MEDS ORDERED: LORazepam 2 mg/ml vial IV ONE (19:35)
[2020-09-14] MEDS ORDERED: morphine 4 MG/ML inj SYRINge IV ONE (19:35)
[2020-09-14 20:00] LABS: BASOPHILS # (AUTO) 0.1 X10'3 (0-0.2); BASOPHILS % (AUTO) 0.9 % (0-1); EOSINOPHILS # (AUTO) 0.2 X10'3 (0-0.9); EOSINOPHILS % (AUTO) 1.6 % (0-6); HEMATOCRIT 37.7 % (35.0-45.0); HEMOGLOBIN 12.6 g/dl (12.0-16.0); LYMPHOCYTES # (AUTO) 1.7 X10'3 (1.1-4.8); LYMPHOCYTES % (AUTO) 16.5 % (21-51); MEAN CORPUSCULAR HEMOGLOBIN 27.9 PG (27.0-31.0); MEAN CORPUSCULAR HGB CONC 33.4 g/dL (33.0-36.5); MEAN CORPUSCULAR VOLUME 83.5 FL (78-98); MONOCYTES # (AUTO) 0.6 X10'3 (0-0.9); MONOCYTES % (AUTO) 5.8 % (2-12); NEUTROPHILS # (AUTO) 7.8 X10'3 (1.8-7.7); NEUTROPHILS % (AUTO) 75.2 % (42-75); PLATELET COUNT 449 X10'3 (140-440); RED BLOOD COUNT 4.52 X10'6 (4.20-5.60); WHITE BLOOD COUNT 10.4 X10'3 (4.5-11.0)
[2020-09-14 20:17] LABS: ALANINE AMINOTRANSFERASE 27 U/L (12-78); ALBUMIN 3.6 G/DL (3.4-5.0); ALBUMIN/GLOBULIN RATIO 0.9 (1.1-1.5); ALKALINE PHOSPHATASE 81 IU/L (46-116); ANION GAP 11 (8-16); ASPARTATE AMINO TRANSFERASE 15 U/L (10-37); BILIRUBIN,TOTAL 0.3 MG/DL (0.1-1.0); BLOOD UREA NITROGEN 16 MG/DL (7-18); BUN/CREATININE RATIO 17.6 (6.6-38.0); CALCIUM 8.9 MG/DL (8.5-10.1); CHLORIDE 95 MMOL/L (99-107); CREATINE KINASE 34 U/L (26-192); CREATININE 0.91 MG/DL (0.40-0.90); GLUCOSE 163 MG/DL (70-104); POTASSIUM 3.3 MMOL/L (3.5-5.1); SODIUM 134 MMOL/L (135-145); TOTAL CARBON DIOXIDE 28.1 MMOL/L (24-32); TOTAL PROTEIN 7.6 G/DL (6.4-8.2); eGFR 63 ML/MIN
[2020-09-14 21:47] VITALS: BP 122/68
== END 2020-09-14 22:13 | disposition home or self-care (01) ==
LOC: ER 19:25
DX: G40.909 Epilepsy, unspecified, not intractable, without status epilepticus (principal); R51.9 Headache, unspecified; I10 Essential (primary) hypertension; K21.9 Gastro-esophageal reflux disease without esophagitis; F41.9 Anxiety disorder, unspecified; Z86.69 Personal history of other diseases of the nervous system and sense organs; Z90.49 Acquired absence of other specified parts of digestive tract; Z98.890 Other specified postprocedural states; Z98.51 Tubal ligation status; Z88.8 Allergy status to other drugs, medicaments and biological substances; Z88.5 Allergy status to narcotic agent; Z88.6 Allergy status to analgesic agent; Z79.899 Other long term (current) drug therapy
CPT/HCPCS: 36415; 71045; 80053; 82550; 85025; 93005; 96374; 96375; 99285; J2060; J2270; J2765; J7030; 96361

== ENCOUNTER 2020-10-06 20:48 | Emergency (ER) | payer MEDICARE, MEDICAID ==
[~2020-10-06] VITALS: Ht 160 cm; Wt 116.2 kg
[2020-10-06 20:50] VITALS: BP 159/90
== END 2020-10-06 22:27 | disposition home or self-care (01) ==
LOC: ER 20:49
DX: G40.909 Epilepsy, unspecified, not intractable, without status epilepticus (principal); I10 Essential (primary) hypertension; K21.9 Gastro-esophageal reflux disease without esophagitis; M19.90 Unspecified osteoarthritis, unspecified site; Z98.890 Other specified postprocedural states; Z90.49 Acquired absence of other specified parts of digestive tract; Z98.51 Tubal ligation status; Z88.6 Allergy status to analgesic agent; Z88.8 Allergy status to other drugs, medicaments and biological substances; Z79.899 Other long term (current) drug therapy
CPT/HCPCS: 99284

== ENCOUNTER 2020-10-29 17:03 | Emergency (ER) | payer MEDICARE, MEDICAID ==
[~2020-10-29] VITALS: Ht 160 cm; Wt 118.6 kg
[2020-10-29 17:31] VITALS: BP 173/94
[2020-10-29] MEDS ORDERED: ondansetron 4mg/5ml UD cup PO ONE (19:15)
[2020-10-29] MEDS ORDERED: HYDROcodone/acetaminophen 5mg/325mg tablet PO ONE (19:15)
[2020-10-29] MEDS ORDERED: ondansetron 4mg rapidly disintigrating tab PO ONE (20:10)
[2020-10-29 20:27] LABS: BASOPHILS # (AUTO) 0.1 X10'3 (0-0.2); BASOPHILS % (AUTO) 0.5 % (0-1); EOSINOPHILS % (AUTO) 0.2 % (0-6); HEMOGLOBIN 12.9 g/dl (12.0-16.0); LYMPHOCYTES # (AUTO) 1.4 X10'3 (1.1-4.8); LYMPHOCYTES % (AUTO) 12.2 % (21-51); MEAN CORPUSCULAR HEMOGLOBIN 27.8 PG (27.0-31.0); MEAN CORPUSCULAR HGB CONC 33.1 g/dL (33.0-36.5); MEAN CORPUSCULAR VOLUME 84.1 FL (78-98); MEAN PLATELET VOLUME 7.6 FL (7.4-10.4); MONOCYTES # (AUTO) 0.4 X10'3 (0-0.9); MONOCYTES % (AUTO) 3.9 % (2-12); NEUTROPHILS # (AUTO) 9.3 X10'3 (1.8-7.7); NEUTROPHILS % (AUTO) 83.2 % (42-75); PLATELET COUNT 400 X10'3 (140-440); RED BLOOD COUNT 4.64 X10'6 (4.20-5.60); RED CELL DISTRIBUTION WIDTH 16.5 % (11.5-14.5); WHITE BLOOD COUNT 11.2 X10'3 (4.5-11.0)
[2020-10-29 20:30] LABS: ALANINE AMINOTRANSFERASE 30 U/L (12-78); ALBUMIN 3.9 G/DL (3.4-5.0); ALKALINE PHOSPHATASE 82 IU/L (46-116); ANION GAP 8 (8-16); ASPARTATE AMINO TRANSFERASE 15 U/L (10-37); BILIRUBIN,TOTAL 0.4 MG/DL (0.1-1.0); BLOOD UREA NITROGEN 15 MG/DL (7-18); BUN/CREATININE RATIO 17.2 (6.6-38.0); CALCIUM 9.6 MG/DL (8.5-10.1); CHLORIDE 97 MMOL/L (99-107); CREATININE 0.87 MG/DL (0.40-0.90); GLUCOSE 118 MG/DL (70-104); MAGNESIUM 1.9 MG/DL (1.5-2.4); POTASSIUM 3.4 MMOL/L (3.5-5.1); SODIUM 136 MMOL/L (135-145); TOTAL CARBON DIOXIDE 30.9 MMOL/L (24-32); eGFR 66 ML/MIN
== END 2020-10-29 21:49 | disposition home or self-care (01) ==
LOC: ER 17:03
DX: R56.9 Unspecified convulsions (principal); M79.651 Pain in right thigh; R51.9 Headache, unspecified; I10 Essential (primary) hypertension; K21.9 Gastro-esophageal reflux disease without esophagitis; F41.9 Anxiety disorder, unspecified; Z98.890 Other specified postprocedural states; Z98.51 Tubal ligation status; Z88.5 Allergy status to narcotic agent; Z88.6 Allergy status to analgesic agent; Z88.8 Allergy status to other drugs, medicaments and biological substances; Z79.899 Other long term (current) drug therapy
CPT/HCPCS: 36415; 70450; 71045; 73502; 80053; 83735; 85025; 99285

== ENCOUNTER 2020-11-09 18:46 | Emergency (ER) | payer MEDICARE, MEDICAID ==
[~2020-11-09] VITALS: Ht 175.3 cm; Wt 118.0 kg
[2020-11-09 19:49] LABS: BASOPHILS # (AUTO) 0.1 X10'3 (0-0.2); BASOPHILS % (AUTO) 0.4 % (0-1); EOSINOPHILS # (AUTO) 0.1 X10'3 (0-0.9); EOSINOPHILS % (AUTO) 0.8 % (0-6); HEMATOCRIT 38.6 % (35.0-45.0); HEMOGLOBIN 12.8 g/dl (12.0-16.0); LYMPHOCYTES # (AUTO) 1.2 X10'3 (1.1-4.8); LYMPHOCYTES % (AUTO) 8.9 % (21-51); MEAN CORPUSCULAR HEMOGLOBIN 27.9 PG (27.0-31.0); MEAN CORPUSCULAR HGB CONC 33.2 g/dL (33.0-36.5); MEAN CORPUSCULAR VOLUME 83.9 FL (78-98); MEAN PLATELET VOLUME 7.2 FL (7.4-10.4); MONOCYTES # (AUTO) 0.7 X10'3 (0-0.9); NEUTROPHILS # (AUTO) 11.4 X10'3 (1.8-7.7); NEUTROPHILS % (AUTO) 84.9 % (42-75); PLATELET COUNT 362 X10'3 (140-440); RED CELL DISTRIBUTION WIDTH 16.6 % (11.5-14.5); WHITE BLOOD COUNT 13.4 X10'3 (4.5-11.0)
[2020-11-09 19:59] LABS: ALBUMIN 3.8 G/DL (3.4-5.0); ANION GAP 9 (8-16); BLOOD UREA NITROGEN 16 MG/DL (7-18); BUN/CREATININE RATIO 17.4 (6.6-38.0); CALCIUM 9.5 MG/DL (8.5-10.1); CHLORIDE 97 MMOL/L (99-107); CREATININE 0.92 MG/DL (0.40-0.90); GLUCOSE 127 MG/DL (70-104); POTASSIUM 3.3 MMOL/L (3.5-5.1); SODIUM 135 MMOL/L (135-145); TOTAL CARBON DIOXIDE 29.3 MMOL/L (24-32); eGFR 62 ML/MIN
[2020-11-09] MEDS ORDERED: ketorolac trometh. 30mg/ml inj. IM ONE (20:25)
[2020-11-09 20:35] VITALS: BP 129/85
== END 2020-11-09 20:37 | disposition home or self-care (01) ==
LOC: ER 18:46
DX: G40.909 Epilepsy, unspecified, not intractable, without status epilepticus (principal); I10 Essential (primary) hypertension; K21.9 Gastro-esophageal reflux disease without esophagitis; F41.9 Anxiety disorder, unspecified; Z90.49 Acquired absence of other specified parts of digestive tract; Z98.51 Tubal ligation status; Z98.890 Other specified postprocedural states; Z88.8 Allergy status to other drugs, medicaments and biological substances; Z88.5 Allergy status to narcotic agent; Z88.6 Allergy status to analgesic agent; Z79.899 Other long term (current) drug therapy
CPT/HCPCS: 36415; 80048; 85025; 93005; 96372; 99284; J1885

== ENCOUNTER 2020-11-15 14:05 | Emergency (ER) | payer MEDICARE, MEDICAID ==
[~2020-11-15] VITALS: Ht 160 cm; Wt 118.2 kg
[2020-11-15] MEDS ORDERED: LORazepam 2 mg/ml vial IV ONE (15:05)
[2020-11-15] MEDS ORDERED: ketorolac tromethamine 15mg/ml inj. IV ONE (15:05)
[2020-11-15 15:33] LABS: BASOPHILS # (AUTO) 0.1 X10'3 (0-0.2); BASOPHILS % (AUTO) 0.8 % (0-1); EOSINOPHILS # (AUTO) 0.1 X10'3 (0-0.9); HEMATOCRIT 39.6 % (35.0-45.0); HEMOGLOBIN 13.1 g/dl (12.0-16.0); LYMPHOCYTES # (AUTO) 1.4 X10'3 (1.1-4.8); LYMPHOCYTES % (AUTO) 15.3 % (21-51); MEAN CORPUSCULAR HEMOGLOBIN 28.1 PG (27.0-31.0); MEAN CORPUSCULAR HGB CONC 33.1 g/dL (33.0-36.5); MEAN CORPUSCULAR VOLUME 84.9 FL (78-98); MEAN PLATELET VOLUME 7.6 FL (7.4-10.4); MONOCYTES # (AUTO) 0.5 X10'3 (0-0.9); MONOCYTES % (AUTO) 5.3 % (2-12); NEUTROPHILS # (AUTO) 7.2 X10'3 (1.8-7.7); NEUTROPHILS % (AUTO) 77.6 % (42-75); PLATELET COUNT 370 X10'3 (140-440); RED BLOOD COUNT 4.66 X10'6 (4.20-5.60); RED CELL DISTRIBUTION WIDTH 16.4 % (11.5-14.5); WHITE BLOOD COUNT 9.3 X10'3 (4.5-11.0)
[2020-11-15 15:45] LABS: ALANINE AMINOTRANSFERASE 30 U/L (12-78); ALBUMIN 3.8 G/DL (3.4-5.0); ALBUMIN/GLOBULIN RATIO 0.9 (1.1-1.5); ALKALINE PHOSPHATASE 85 IU/L (46-116); ANION GAP 9 (8-16); ASPARTATE AMINO TRANSFERASE 18 U/L (10-37); BILIRUBIN,TOTAL 0.3 MG/DL (0.1-1.0); BLOOD UREA NITROGEN 15 MG/DL (7-18); BUN/CREATININE RATIO 18.8 (6.6-38.0); CALCIUM 8.8 MG/DL (8.5-10.1); CHLORIDE 95 MMOL/L (99-107); GLUCOSE 98 MG/DL (70-104); POTASSIUM 3.2 MMOL/L (3.5-5.1); SODIUM 134 MMOL/L (135-145); TOTAL CARBON DIOXIDE 30.5 MMOL/L (24-32); eGFR 73 ML/MIN
--- NOTE | 2020-11-15 16:58 | NUR ---
Called cab, ETA approx. 1-1.5 hours. Patient given yogurt, cheese stick and water.
[2020-11-15 16:59] VITALS: BP 126/70
--- NOTE | 2020-11-15 17:37 | NUR ---
Called Jose Guadalupe per patients request and let him know that patient was awaiting a taxi and would be coming back home soon. Jose Guadalupe stated that he would have walker ready for her when she gets there.
== END 2020-11-15 18:58 | disposition home or self-care (01) ==
LOC: ER 14:05
DX: R56.9 Unspecified convulsions (principal); I10 Essential (primary) hypertension; K21.9 Gastro-esophageal reflux disease without esophagitis; F41.9 Anxiety disorder, unspecified; Z88.5 Allergy status to narcotic agent; Z88.8 Allergy status to other drugs, medicaments and biological substances; Z88.6 Allergy status to analgesic agent; Z79.899 Other long term (current) drug therapy
CPT/HCPCS: 36415; 80053; 85025; 96374; 96375; 99284; J1885; J2060

== ENCOUNTER 2020-11-30 19:23 | Emergency (ER) | payer MEDICARE, MEDICAID ==
[~2020-11-30] VITALS: Ht 160 cm; Wt 115.0 kg
[2020-11-30 20:23] LABS: BASOPHILS # (AUTO) 0.1 X10'3 (0-0.2); BASOPHILS % (AUTO) 0.6 % (0-1); EOSINOPHILS # (AUTO) 0.1 X10'3 (0-0.9); HEMOGLOBIN 12.7 g/dl (12.0-16.0); LYMPHOCYTES # (AUTO) 1.5 X10'3 (1.1-4.8); MEAN CORPUSCULAR HGB CONC 32.9 g/dL (33.0-36.5); MONOCYTES # (AUTO) 0.8 X10'3 (0-0.9); RED CELL DISTRIBUTION WIDTH 16.2 % (11.5-14.5)
[2020-11-30 20:25] LABS: EOSINOPHILS % (AUTO) 1.1 % (0-6); HEMATOCRIT 38.5 % (35.0-45.0); MEAN CORPUSCULAR HEMOGLOBIN 27.8 PG (27.0-31.0); MEAN CORPUSCULAR VOLUME 84.5 FL (78-98); MEAN PLATELET VOLUME 7.3 FL (7.4-10.4); MONOCYTES % (AUTO) 6.4 % (2-12); NEUTROPHILS # (AUTO) 9.9 X10'3 (1.8-7.7); NEUTROPHILS % (AUTO) 79.9 % (42-75); PLATELET COUNT 380 X10'3 (140-440); RED BLOOD COUNT 4.56 X10'6 (4.20-5.60); WHITE BLOOD COUNT 12.3 X10'3 (4.5-11.0)
[2020-11-30 20:35] LABS: ALANINE AMINOTRANSFERASE 29 U/L (12-78); ALBUMIN 3.6 G/DL (3.4-5.0); ALBUMIN/GLOBULIN RATIO 0.9 (1.1-1.5); ALKALINE PHOSPHATASE 79 IU/L (46-116); ANION GAP 9 (8-16); ASPARTATE AMINO TRANSFERASE 16 U/L (10-37); BILIRUBIN,TOTAL 0.2 MG/DL (0.1-1.0); BLOOD UREA NITROGEN 17 MG/DL (7-18); BUN/CREATININE RATIO 18.3 (6.6-38.0); CALCIUM 8.6 MG/DL (8.5-10.1); CHLORIDE 97 MMOL/L (99-107); CREATININE 0.93 MG/DL (0.40-0.90); GLUCOSE 141 MG/DL (70-104); SODIUM 136 MMOL/L (135-145); TOTAL CARBON DIOXIDE 30.2 MMOL/L (24-32); TOTAL PROTEIN 7.6 G/DL (6.4-8.2); eGFR 61 ML/MIN
[2020-11-30] MEDS ORDERED: ondansetron/PF 4mg/2ml inj IV ONE (21:50)
[2020-11-30] MEDS ORDERED: LORazepam 2 mg/ml vial IV ONE (21:50)
[2020-11-30] MEDS ORDERED: POTASSIUM BICARB 20meq eff tab 20 MEQ TABLET.EFF PO ONE (21:55)
[2020-11-30] MEDS ORDERED: acetaminophen 325mg tablet PO ONE (21:55)
[2020-11-30] MEDS ORDERED: POTA20TA19 PO (21:57)
[2020-11-30 22:35] VITALS: BP 114/78
== END 2020-11-30 22:45 | disposition home or self-care (01) ==
LOC: ER 19:24
DX: G40.909 Epilepsy, unspecified, not intractable, without status epilepticus (principal); E87.6 Hypokalemia; I10 Essential (primary) hypertension; K21.9 Gastro-esophageal reflux disease without esophagitis; F41.9 Anxiety disorder, unspecified; Z90.49 Acquired absence of other specified parts of digestive tract; Z98.51 Tubal ligation status; Z98.890 Other specified postprocedural states; Z88.8 Allergy status to other drugs, medicaments and biological substances; Z88.5 Allergy status to narcotic agent; Z79.899 Other long term (current) drug therapy
CPT/HCPCS: 36415; 80053; 85025; 93005; 96374; 96375; 99284; J2060; J2405

== ENCOUNTER 2020-12-01 07:21 | Emergency (ER) | payer MEDICARE, MEDICAID ==
[~2020-12-01] VITALS: Ht 160 cm; Wt 72.7 kg
[2020-12-01] MEDS: diazepam 5mg tablet PO ONE (07:48)
[2020-12-01 08:44] VITALS: BP 153/87
== END 2020-12-01 08:47 | disposition home or self-care (01) ==
LOC: ER 07:21
DX: G40.909 Epilepsy, unspecified, not intractable, without status epilepticus (principal); I10 Essential (primary) hypertension; K21.9 Gastro-esophageal reflux disease without esophagitis; F41.9 Anxiety disorder, unspecified; Z90.49 Acquired absence of other specified parts of digestive tract; Z98.51 Tubal ligation status; Z98.890 Other specified postprocedural states; Z88.8 Allergy status to other drugs, medicaments and biological substances; Z88.5 Allergy status to narcotic agent; Z88.6 Allergy status to analgesic agent; Z79.899 Other long term (current) drug therapy
CPT/HCPCS: 99283

== ENCOUNTER 2020-12-01 16:01 | Emergency (ER) | payer MEDICARE, MEDICAID ==
[~2020-12-01] VITALS: Ht 160 cm; Wt 73.2 kg
[2020-12-01 16:25] VITALS: BP 151/97
[2020-12-01] MEDS ORDERED: acetaminophen 325mg tablet PO ONE (17:00)
== END 2020-12-01 17:40 | disposition home or self-care (01) ==
LOC: ER 16:01
DX: R51.9 Headache, unspecified (principal); R11.0 Nausea; G40.909 Epilepsy, unspecified, not intractable, without status epilepticus; I10 Essential (primary) hypertension; K21.9 Gastro-esophageal reflux disease without esophagitis; F41.9 Anxiety disorder, unspecified; Z86.69 Personal history of other diseases of the nervous system and sense organs; Z90.49 Acquired absence of other specified parts of digestive tract; Z98.51 Tubal ligation status; Z98.890 Other specified postprocedural states; Z88.5 Allergy status to narcotic agent; Z88.6 Allergy status to analgesic agent; Z88.8 Allergy status to other drugs, medicaments and biological substances; Z79.899 Other long term (current) drug therapy
CPT/HCPCS: 82948; 99283

== ENCOUNTER 2020-12-14 14:59 | Emergency (ER) | payer MEDICARE, MEDICAID ==
[~2020-12-14] VITALS: Ht 160 cm; Wt 122.0 kg
--- NOTE | 2020-12-14 15:07 | NUR ---
EMS CBG WAS 150
[2020-12-14] MEDS ORDERED: LORazepam 2 mg/ml vial IM ONE (15:20)
--- NOTE | 2020-12-14 15:45 | NUR ---
PT HAD ONE MINUTE SEIZURE AT 1540, MUSCLE SPASMS, HR TO 130, SPO2 TO 82%. CLEMENT BOOTH TO BEDSIDE, ORDER TO GIVE 2 MG IV ATIVAN. PT PLACED ON 3L/NC. SEIZURE PADS IN PLACE.
[2020-12-14 16:05] LABS: CLARITY,URINE CLEAR (Clear); COLOR,URINE YELLOW (Yellow); GLUCOSE, URINE NEGATIVE (Neg); KETONES,URINE NEGATIVE (Neg); LEUKOCYTE ESTERASE ,URINE NEGATIVE (Neg); NITRITES, URINE NEGATIVE (Neg); OCCULT BLOOD,URINE TRACE-INTACT (Neg); PROTEIN,URINE TRACE mg/dl (Neg); UROBILINOGEN,URINE 0.2 E.U/dL (0.2-1.0)
[2020-12-14 16:06] LABS: UA COLLECTION TYPE STRAIGHT CATH
[2020-12-14 16:10] LABS: MUCUS STRANDS FEW /LPF (Neg); SQUAMOUS EPITHELIAL CELL,UR FEW /LPF (FEW)
[2020-12-14] MEDS ORDERED: normal saline 1000ml 1,000 ML IV ONE (16:10)
[2020-12-14 16:11] LABS: BACTERIA,URINE NONE SEEN /HPF (Neg); RBC,URINE 0-2 /HPF (0-2); WBC,URINE NONE SEEN /HPF (0-4)
[2020-12-14 16:25] LABS: BASOPHILS # (AUTO) 0.1 X10'3 (0-0.2); EOSINOPHILS # (AUTO) 0.2 X10'3 (0-0.9); EOSINOPHILS % (AUTO) 1.4 % (0-6); HEMATOCRIT 40.8 % (35.0-45.0); HEMOGLOBIN 13.6 g/dl (12.0-16.0); LYMPHOCYTES % (AUTO) 18.5 % (21-51); MEAN CORPUSCULAR HEMOGLOBIN 28.2 PG (27.0-31.0); MEAN CORPUSCULAR HGB CONC 33.2 g/dL (33.0-36.5); MEAN PLATELET VOLUME 7.7 FL (7.4-10.4); MONOCYTES # (AUTO) 0.7 X10'3 (0-0.9); MONOCYTES % (AUTO) 6.7 % (2-12); NEUTROPHILS % (AUTO) 72.4 % (42-75); PLATELET COUNT 425 X10'3 (140-440); RED CELL DISTRIBUTION WIDTH 16.3 % (11.5-14.5)
[2020-12-14 16:54] LABS: ALANINE AMINOTRANSFERASE 31 U/L (12-78); ALBUMIN 3.8 G/DL (3.4-5.0); ALBUMIN/GLOBULIN RATIO 0.9 (1.1-1.5); ALKALINE PHOSPHATASE 83 IU/L (46-116); ANION GAP 8 (8-16); ASPARTATE AMINO TRANSFERASE 23 U/L (10-37); BILIRUBIN,TOTAL 0.3 MG/DL (0.1-1.0); BLOOD UREA NITROGEN 15 MG/DL (7-18); CALCIUM 9.1 MG/DL (8.5-10.1); CHLORIDE 97 MMOL/L (99-107); CREATININE 0.79 MG/DL (0.40-0.90); GLUCOSE 108 MG/DL (70-104); SODIUM 136 MMOL/L (135-145); TOTAL CARBON DIOXIDE 31.1 MMOL/L (24-32); TOTAL PROTEIN 8.1 G/DL (6.4-8.2); eGFR 74 ML/MIN
[2020-12-14 16:55] LABS: POTASSIUM 3.6 MMOL/L (3.5-5.1)
[2020-12-14] MEDS ORDERED: traMADol 50MG tablet PO ONE (16:55)
[2020-12-14] MEDS ORDERED: LORazepam 2 mg/ml vial IV ONE (17:15)
[2020-12-14 17:22] VITALS: BP 152/75
== END 2020-12-14 18:01 | disposition home or self-care (01) ==
LOC: ER 15:00
DX: G40.909 Epilepsy, unspecified, not intractable, without status epilepticus (principal); I10 Essential (primary) hypertension; K21.9 Gastro-esophageal reflux disease without esophagitis; F41.9 Anxiety disorder, unspecified; Z86.69 Personal history of other diseases of the nervous system and sense organs; Z90.49 Acquired absence of other specified parts of digestive tract; Z98.51 Tubal ligation status; Z98.890 Other specified postprocedural states; Z88.5 Allergy status to narcotic agent; Z88.6 Allergy status to analgesic agent; Z88.8 Allergy status to other drugs, medicaments and biological substances; Z79.899 Other long term (current) drug therapy
CPT/HCPCS: 36415; 80053; 81001; 82948; 85025; 93005; 96372; 96374; 99284; J2060; J7030

== ENCOUNTER 2020-12-20 22:02 | Emergency (ER) | payer MEDICARE, MEDICAID ==
[~2020-12-20] VITALS: Ht 160 cm; Wt 86.4 kg
[2020-12-20 22:05] VITALS: BP 137/75
[2020-12-20] MEDS ORDERED: LORazepam 2 mg/ml vial IV ONE (22:15)
[2020-12-20] MEDS ORDERED: normal saline 1000ML IV soln IVB ONE (22:15)
[2020-12-20 22:29] LABS: BASOPHILS # (AUTO) 0.2 X10'3 (0-0.2); BASOPHILS % (AUTO) 1.4 % (0-1); EOSINOPHILS # (AUTO) 0.1 X10'3 (0-0.9); EOSINOPHILS % (AUTO) 1.2 % (0-6); HEMATOCRIT 36.3 % (35.0-45.0); HEMOGLOBIN 12.3 g/dl (12.0-16.0); LYMPHOCYTES # (AUTO) 1.7 X10'3 (1.1-4.8); MEAN CORPUSCULAR HEMOGLOBIN 28.2 PG (27.0-31.0); MEAN CORPUSCULAR HGB CONC 33.9 g/dL (33.0-36.5); MEAN CORPUSCULAR VOLUME 83.2 FL (78-98); MEAN PLATELET VOLUME 7.2 FL (7.4-10.4); MONOCYTES # (AUTO) 0.7 X10'3 (0-0.9); MONOCYTES % (AUTO) 5.5 % (2-12); NEUTROPHILS # (AUTO) 9.4 X10'3 (1.8-7.7); NEUTROPHILS % (AUTO) 77.9 % (42-75); PLATELET COUNT 390 X10'3 (140-440); RED BLOOD COUNT 4.37 X10'6 (4.20-5.60); RED CELL DISTRIBUTION WIDTH 15.7 % (11.5-14.5); WHITE BLOOD COUNT 12.1 X10'3 (4.5-11.0)
[2020-12-20 22:39] LABS: ALANINE AMINOTRANSFERASE 28 U/L (12-78); ALBUMIN 3.7 G/DL (3.4-5.0); ALBUMIN/GLOBULIN RATIO 0.9 (1.1-1.5); ALKALINE PHOSPHATASE 76 IU/L (46-116); ANION GAP 8 (8-16); ASPARTATE AMINO TRANSFERASE 22 U/L (10-37); BILIRUBIN,TOTAL 0.3 MG/DL (0.1-1.0); BLOOD UREA NITROGEN 16 MG/DL (7-18); CHLORIDE 93 MMOL/L (99-107); GLUCOSE 121 MG/DL (70-104); POTASSIUM 3.7 MMOL/L (3.5-5.1); SODIUM 130 MMOL/L (135-145); TOTAL CARBON DIOXIDE 28.8 MMOL/L (24-32); TOTAL PROTEIN 7.6 G/DL (6.4-8.2); eGFR 73 ML/MIN
[2020-12-20] MEDS ORDERED: morphine 5 MG/ML injection IM ONE (23:45)
[2020-12-21] MEDS ORDERED: morphine 10mg/ml inj. IM ONE (00:25)
== END 2020-12-21 00:47 | disposition home or self-care (01) ==
LOC: ER 22:02
DX: G40.909 Epilepsy, unspecified, not intractable, without status epilepticus (principal); R51.9 Headache, unspecified; M54.5 Low back pain; I10 Essential (primary) hypertension; K21.9 Gastro-esophageal reflux disease without esophagitis; F41.9 Anxiety disorder, unspecified; Z86.69 Personal history of other diseases of the nervous system and sense organs; Z90.49 Acquired absence of other specified parts of digestive tract; Z98.51 Tubal ligation status; Z98.890 Other specified postprocedural states; Z88.5 Allergy status to narcotic agent; Z88.6 Allergy status to analgesic agent; Z88.8 Allergy status to other drugs, medicaments and biological substances; Z79.899 Other long term (current) drug therapy
CPT/HCPCS: 36415; 80053; 85025; 96372; 96374; 99284; J2060; J2270; J7030

== ENCOUNTER 2020-12-21 20:59 | Emergency (ER) | payer MEDICARE, MEDICAID ==
[~2020-12-21] VITALS: Ht 160 cm; Wt 118.2 kg
[2020-12-21 23:03] LABS: URINE AMPHETAMINE SCREEN NEGATIVE (Neg); URINE BARBITUATE SCREEN NEGATIVE (Neg); URINE BENZODIAZEPINES SCREEN POSITIVE (Neg); URINE CANNABINOID SCREEN NEGATIVE (Neg); URINE COCAINE SCREEN NEGATIVE (Neg); URINE METHADONE SCREEN NEGATIVE (Neg); URINE OPIATE SCREEN POSITIVE (Neg); URINE PHENCYCLIDINE SCREEN NEGATIVE (Neg)
[2020-12-21 23:20] VITALS: BP 143/85
== END 2020-12-21 23:15 | disposition home or self-care (01) ==
LOC: ER 20:59
DX: G40.909 Epilepsy, unspecified, not intractable, without status epilepticus (principal); I10 Essential (primary) hypertension; K21.9 Gastro-esophageal reflux disease without esophagitis; F41.9 Anxiety disorder, unspecified; Z86.69 Personal history of other diseases of the nervous system and sense organs; Z90.49 Acquired absence of other specified parts of digestive tract; Z98.51 Tubal ligation status; Z98.890 Other specified postprocedural states; Z88.5 Allergy status to narcotic agent; Z88.8 Allergy status to other drugs, medicaments and biological substances; Z79.899 Other long term (current) drug therapy
CPT/HCPCS: 80305; 99283

== ENCOUNTER 2020-12-29 17:39 | Emergency (ER) | payer MEDICARE, MEDICAID ==
[~2020-12-29] VITALS: Ht 160 cm; Wt 118.0 kg
[2020-12-29 18:24] VITALS: BP 152/100
== END 2020-12-29 18:37 | disposition home or self-care (01) ==
LOC: ER 17:39
DX: G40.909 Epilepsy, unspecified, not intractable, without status epilepticus (principal); I10 Essential (primary) hypertension; K21.9 Gastro-esophageal reflux disease without esophagitis; F41.9 Anxiety disorder, unspecified; Z86.69 Personal history of other diseases of the nervous system and sense organs; Z90.49 Acquired absence of other specified parts of digestive tract; Z98.51 Tubal ligation status; Z98.890 Other specified postprocedural states; Z88.5 Allergy status to narcotic agent; Z88.6 Allergy status to analgesic agent; Z88.8 Allergy status to other drugs, medicaments and biological substances; Z79.899 Other long term (current) drug therapy
CPT/HCPCS: 99283

== ENCOUNTER 2021-01-03 19:58 | Emergency (ER) | payer MEDICARE, MEDICAID ==
[~2021-01-03] VITALS: Ht 165.1 cm; Wt 125.0 kg
--- NOTE | 2021-01-03 20:35 | NUR ---
DR COHEN IN ROOM. PATIENT STATES THAT SHE HAS HAD 2 SEIZURES TODAY. PATIENT COMPLAINS OF SAWYER AND ALL OVER BODY ACHES. PATIENT STATES THAT SHE HAS BEEN TAKING HER SEIZURE MEDICATION REGULARLY: 3 MEDICATIONS. SHE REPORTS HAVING MRIS LAST MONTH AT [facility]: SHE SEES DR STONE THERE NEUROLOGIST
[2021-01-03] MEDS ORDERED: LORazepam 2 mg/ml vial IV ONE (20:45)
--- NOTE | 2021-01-03 20:58 | NUR ---
PATIENT REPORTS THAT SHE HAS AN APPOINTMENT AT [facility] ON January
[2021-01-03] MEDS ORDERED: HYDROcodone/acetaminophen 5mg/325mg tablet PO ONE (21:05)
--- NOTE | 2021-01-03 21:20 | NUR ---
PT GIVEN NORCO FOR POSTERIOR LOWER HEAD PAIN AND WAS GIVEN ATIVAN 45 MIN AGO. PT REPORTS SHE NEEDS TO VOID AND POSSIBLEY HAVE BM. BSC PROVIDED AND SBA WHILE PT GOING TO BR. S.
[2021-01-03 21:24] VITALS: BP 145/82
== END 2021-01-03 22:37 | disposition home or self-care (01) ==
LOC: ER 20:00
DX: R56.9 Unspecified convulsions (principal); R51.9 Headache, unspecified; I10 Essential (primary) hypertension; K21.9 Gastro-esophageal reflux disease without esophagitis; F41.9 Anxiety disorder, unspecified; Z86.69 Personal history of other diseases of the nervous system and sense organs; Z90.49 Acquired absence of other specified parts of digestive tract; Z98.51 Tubal ligation status; Z98.890 Other specified postprocedural states; Z88.5 Allergy status to narcotic agent; Z88.6 Allergy status to analgesic agent; Z88.8 Allergy status to other drugs, medicaments and biological substances; Z79.899 Other long term (current) drug therapy
CPT/HCPCS: 93005; 96374; 99284; J2060

== ENCOUNTER 2021-01-12 07:23 | Emergency (ER) | payer MEDICARE, MEDICAID ==
[~2021-01-12] VITALS: Ht 160 cm; Wt 113.6 kg
[2021-01-12 07:34] VITALS: BP 152/78
== END 2021-01-12 08:24 | disposition home or self-care (01) ==
LOC: ER 07:24
DX: G40.909 Epilepsy, unspecified, not intractable, without status epilepticus (principal); I10 Essential (primary) hypertension; K21.9 Gastro-esophageal reflux disease without esophagitis; F41.9 Anxiety disorder, unspecified; Z86.69 Personal history of other diseases of the nervous system and sense organs; Z90.49 Acquired absence of other specified parts of digestive tract; Z98.51 Tubal ligation status; Z98.890 Other specified postprocedural states; Z88.8 Allergy status to other drugs, medicaments and biological substances; Z88.5 Allergy status to narcotic agent; Z88.6 Allergy status to analgesic agent; Z79.899 Other long term (current) drug therapy
CPT/HCPCS: 99284

== ENCOUNTER 2021-02-28 17:17 | Emergency (ER) | payer MEDICARE, MEDICAID ==
[~2021-02-28] VITALS: Ht 160 cm; Wt 130.0 kg
[~2021-02-28 17:17] MED LIST changes: -FOLI0.4T2 PO; +FOLI0.4T6 PO
[2021-02-28 22:25] VITALS: BP 151/89
== END 2021-02-28 22:27 | disposition home or self-care (01) ==
LOC: ER 17:18
DX: G40.909 Epilepsy, unspecified, not intractable, without status epilepticus (principal); I10 Essential (primary) hypertension; K21.9 Gastro-esophageal reflux disease without esophagitis; M19.90 Unspecified osteoarthritis, unspecified site; F41.9 Anxiety disorder, unspecified; Z90.49 Acquired absence of other specified parts of digestive tract; Z98.890 Other specified postprocedural states; Z98.51 Tubal ligation status; Z88.8 Allergy status to other drugs, medicaments and biological substances; Z88.5 Allergy status to narcotic agent; Z88.6 Allergy status to analgesic agent; Z79.899 Other long term (current) drug therapy
CPT/HCPCS: 99284

== ENCOUNTER 2021-05-25 20:33 | Emergency (ER) | payer MEDICARE, MEDICAID ==
[~2021-05-25] VITALS: Ht 160 cm; Wt 125.0 kg
--- NOTE | 2021-05-25 21:16 | NUR ---
EKG HAS BEEN DONE - HR DOWN TO 100 - MD AWARE OF PT - SHE IS SENT TO TRIAGE THERE ARE NO BEDS AVAILABLE AT THIS TIME.
[2021-05-25 23:24] VITALS: BP 131/79
--- NOTE | 2021-05-26 00:41 | NUR ---
seizure pads in place for safety
[2021-05-26] MEDS ORDERED: proCHLORperazine 10mg tablet PO ONE (02:05)
[2021-05-26] MEDS ORDERED: ketorolac trometh inj. 60 MG/2 ML VIAL IM ONE (02:05)
[2021-05-26 02:42] LABS: BASOPHILS # (AUTO) 0.1 X10'3 (0-0.2); BASOPHILS % (AUTO) 0.7 % (0-1); EOSINOPHILS # (AUTO) 0.1 X10'3 (0-0.9); EOSINOPHILS % (AUTO) 1.2 % (0-6); HEMATOCRIT 37.6 % (35.0-45.0); HEMOGLOBIN 12.7 g/dl (12.0-16.0); LYMPHOCYTES # (AUTO) 1.5 X10'3 (1.1-4.8); LYMPHOCYTES % (AUTO) 17.1 % (21-51); MEAN CORPUSCULAR HEMOGLOBIN 29.1 PG (27.0-31.0); MEAN CORPUSCULAR HGB CONC 33.7 g/dL (33.0-36.5); MEAN CORPUSCULAR VOLUME 86.3 FL (78-98); MEAN PLATELET VOLUME 7.1 FL (7.4-10.4); MONOCYTES # (AUTO) 0.5 X10'3 (0-0.9); MONOCYTES % (AUTO) 5.3 % (2-12); NEUTROPHILS # (AUTO) 6.8 X10'3 (1.8-7.7); NEUTROPHILS % (AUTO) 75.7 % (42-75); PLATELET COUNT 367 X10'3 (140-440); RED BLOOD COUNT 4.36 X10'6 (4.20-5.60); RED CELL DISTRIBUTION WIDTH 15.5 % (11.5-14.5)
[2021-05-26 02:51] LABS: CLARITY,URINE CLEAR (Clear); COLOR,URINE YELLOW (Yellow); GLUCOSE, URINE NEGATIVE (Neg); KETONES,URINE NEGATIVE (Neg); LEUKOCYTE ESTERASE ,URINE NEGATIVE (Neg); NITRITES, URINE NEGATIVE (Neg); OCCULT BLOOD,URINE NEGATIVE (Neg); PROTEIN,URINE NEGATIVE (Neg)
[2021-05-26 02:52] LABS: UA COLLECTION TYPE NON-SPECIFIED
[2021-05-26 02:57] LABS: ALANINE AMINOTRANSFERASE 35 U/L (12-78); ALBUMIN 3.4 G/DL (3.4-5.0); ALBUMIN/GLOBULIN RATIO 0.8 (1.1-1.5); ALKALINE PHOSPHATASE 87 IU/L (46-116); ANION GAP 8 (8-16); ASPARTATE AMINO TRANSFERASE 18 U/L (10-37); BILIRUBIN,TOTAL 0.3 MG/DL (0.1-1.0); BLOOD UREA NITROGEN 14 MG/DL (7-18); BUN/CREATININE RATIO 17.7 (6.6-38.0); CALCIUM 8.8 MG/DL (8.5-10.1); CHLORIDE 100 MMOL/L (99-107); CREATININE 0.79 MG/DL (0.40-0.90); GLUCOSE 101 MG/DL (70-104); SODIUM 137 MMOL/L (135-145); TOTAL CARBON DIOXIDE 28.9 MMOL/L (24-32); TOTAL PROTEIN 7.5 G/DL (6.4-8.2); eGFR 74 ML/MIN
== END 2021-05-26 04:13 | disposition home or self-care (01) ==
LOC: ER 20:36
DX: G40.909 Epilepsy, unspecified, not intractable, without status epilepticus (principal); R51.9 Headache, unspecified; I10 Essential (primary) hypertension; K21.9 Gastro-esophageal reflux disease without esophagitis; F41.9 Anxiety disorder, unspecified; Z86.69 Personal history of other diseases of the nervous system and sense organs; Z90.49 Acquired absence of other specified parts of digestive tract; Z98.51 Tubal ligation status; Z98.890 Other specified postprocedural states; Z88.5 Allergy status to narcotic agent; Z88.6 Allergy status to analgesic agent; Z88.8 Allergy status to other drugs, medicaments and biological substances; Z79.899 Other long term (current) drug therapy
CPT/HCPCS: 36415; 80053; 81003; 85025; 93005; 96372; 99284; J1885; Q0164

== ENCOUNTER 2021-06-06 19:40 | Emergency (ER) | payer MEDICARE, MEDICAID ==
[~2021-06-06] VITALS: Ht 157.5 cm; Wt 122.3 kg
--- NOTE | 2021-06-06 19:57 | NUR ---
CLEMENTE KILGORE PHONE NUMBER [phone]
--- NOTE | 2021-06-06 21:13 | NUR ---
Patient resting in stretcher, even and unlabored respirations- waiting to be seen by provider.
[2021-06-06] MEDS ORDERED: acetaminophen 325mg tablet PO ONE (21:50)
[2021-06-06] MEDS ORDERED: LORazepam 0.5 MG tablet PO PRN (22:10)
--- NOTE | 2021-06-06 22:40 | NUR ---
Patient assisted to and from bathroom with wheelchair- minimal assist. States she uses a walker at home.
[2021-06-06 23:23] VITALS: BP 140/85
[2021-06-07] MEDS ORDERED: LISI-790 PO (16:55)
[2021-06-07] MEDS ORDERED: POLY510P31 PO (16:55)
[2021-06-07] MEDS ORDERED: CLON-369 PO (16:55)
[2021-06-07] MEDS ORDERED: SENN-263 PO (16:55)
[2021-06-07] MEDS ORDERED: FLUT16SP26 BOTHNARES (16:55)
[2021-06-07] MEDS ORDERED: LEVE10002 PO (16:55)
[2021-06-07] MEDS ORDERED: [UNRECOGNIZED DRUG - CODE] PO (16:55)
[2021-06-07] MEDS ORDERED: METO25TA6 PO (16:55)
[2021-06-07] MEDS ORDERED: DOCU-22 PO (16:55)
[2021-06-07] MEDS ORDERED: DICL100G30 TOP (16:55)
[2021-06-07] MEDS ORDERED: IBUP-1984 PO (16:55)
[2021-06-07] MEDS ORDERED: PANT40TA54 PO (16:55)
[2021-06-07] MEDS ORDERED: FOLI0.4T14 PO (16:55)
[2021-06-07] MEDS ORDERED: POTA-82 PO (16:55)
[2021-06-09] MEDS ORDERED: [UNRECOGNIZED DRUG - CODE] PO (10:00)
== END 2021-06-06 23:36 | disposition home or self-care (01) ==
LOC: ER 19:41
DX: R51.9 Headache, unspecified (principal); R41.0 Disorientation, unspecified; G40.909 Epilepsy, unspecified, not intractable, without status epilepticus; I10 Essential (primary) hypertension; K21.9 Gastro-esophageal reflux disease without esophagitis; M19.90 Unspecified osteoarthritis, unspecified site; Z90.49 Acquired absence of other specified parts of digestive tract; Z98.890 Other specified postprocedural states; Z98.51 Tubal ligation status; Z79.899 Other long term (current) drug therapy; Z88.8 Allergy status to other drugs, medicaments and biological substances; Z91.018 Allergy to other foods
CPT/HCPCS: 82948; 99285

== ENCOUNTER 2021-06-25 23:50 | Emergency (ER) | payer MEDICARE, MEDICAID ==
[~2021-06-25] VITALS: Ht 160 cm; Wt 118.2 kg
[~2021-06-25 23:50] MED LIST changes: -AMLO-94 PO; -BISA10SU60 RC; -CALTRATE 600 +1 EACH PO; -CHLO25TA2 PO; +CLON-369 PO; -DIAZ2.5K RC; -DIAZ2TAB3 PO; +DICL100G30 TOP; -DICL50TA8 PO; +DOCU-22 PO; -DOCU100C41 PO; +FLUT16SP26 BOTHNARES; +FOLI0.4T14 PO; -FOLI0.4T6 PO; -HYDR12.55 PO; +IBUP-1984 PO; -IRON150C13 PO; -LACT10SO57 PO; +LEVE10002 PO; -LEVE750T6 PO; +LISI-790 PO; -LORA10TA7 PO; -LORA2TAB96 PO; -LORA2VIA30 IM; -MAGN296S68 PO; -MAGN400O6 PO; -METO-539 PO; +METO25TA6 PO; -MULT-821 PO; -OMEP20TA23 PO; +PANT40TA54 PO; -PER5325T PO; -PERA4TAB PO; -POLY17PO10 PO; +POLY510P31 PO; -POTA20TA19 PO; -SENN-25 PO; +SENN-263 PO; -SODI650T29 PO; +[UNRECOGNIZED DRUG - CODE] PO
[2021-06-26] MEDS ORDERED: normal saline 1000ml 1,000 ML IV ONE (01:00)
[2021-06-26] MEDS ORDERED: ondansetron/PF 4mg/2ml inj IV ONE (01:10)
[2021-06-26 01:58] LABS: COLOR,URINE YELLOW (Yellow); GLUCOSE, URINE NEGATIVE (Neg); KETONES,URINE NEGATIVE (Neg); LEUKOCYTE ESTERASE ,URINE TRACE (Neg); NITRITES, URINE NEGATIVE (Neg); OCCULT BLOOD,URINE NEGATIVE (Neg); PROTEIN,URINE NEGATIVE (Neg); UROBILINOGEN,URINE 0.2 E.U/dL (0.2-1.0)
[2021-06-26 01:59] LABS: CLARITY,URINE SLIGHTLY CLOUDY (Clear); UA COLLECTION TYPE CLN CATCH MIDSTREAM
[2021-06-26 02:06] LABS: BACTERIA,URINE FEW /HPF (Neg); MUCUS STRANDS NONE SEEN /LPF (Neg); RBC,URINE NONE SEEN /HPF (0-2); SQUAMOUS EPITHELIAL CELL,UR MODERATE /LPF (FEW); WBC,URINE 0-4 /HPF (0-4)
[2021-06-26 03:02] LABS: ALBUMIN 2.9 G/DL (3.4-5.0); ANION GAP 7 (8-16); BASOPHILS % (AUTO) 0.2 % (0-1); BLOOD UREA NITROGEN 15 MG/DL (7-18); BUN/CREATININE RATIO 19.5 (6.6-38.0); CALCIUM 8.7 MG/DL (8.5-10.1); CHLORIDE 96 MMOL/L (99-107); CREATININE 0.77 MG/DL (0.40-0.90); EOSINOPHILS # (AUTO) 0.1 X10'3 (0-0.9); EOSINOPHILS % (AUTO) 0.8 % (0-6); GLUCOSE 120 MG/DL (70-104); HEMATOCRIT 33.8 % (35.0-45.0); HEMOGLOBIN 11.2 g/dl (12.0-16.0); LIPASE < 50 U/L (73-393); LYMPHOCYTES % (AUTO) 6.4 % (21-51); MEAN CORPUSCULAR HGB CONC 33.1 g/dL (33.0-36.5); MEAN CORPUSCULAR VOLUME 84.6 FL (78-98); MEAN PLATELET VOLUME 7.2 FL (7.4-10.4); MONOCYTES # (AUTO) 0.9 X10'3 (0-0.9); NEUTROPHILS # (AUTO) 13.1 X10'3 (1.8-7.7); NEUTROPHILS % (AUTO) 86.6 % (42-75); PLATELET COUNT 499 X10'3 (140-440); RED CELL DISTRIBUTION WIDTH 15.1 % (11.5-14.5); SODIUM 130 MMOL/L (135-145); TOTAL CARBON DIOXIDE 27.4 MMOL/L (24-32); WHITE BLOOD COUNT 15.1 X10'3 (4.5-11.0); eGFR 76 ML/MIN
[2021-06-26 03:03] LABS: POTASSIUM 4.9 MMOL/L (3.5-5.1)
[2021-06-26] MEDS ORDERED: morphine 4 MG/ML inj SYRINge IV ONE (03:30)
[2021-06-26 04:28] VITALS: BP 132/78
[2021-06-27] MEDS ORDERED: POLY119P2 PO (22:36)
== END 2021-06-26 04:40 | disposition home or self-care (01) ==
LOC: ER 23:50
DX: G40.409 Other generalized epilepsy and epileptic syndromes, not intractable, without status epilepticus (principal); Z20.822 Contact with and (suspected) exposure to COVID-19; M54.2 Cervicalgia; R20.0 Anesthesia of skin; R11.2 Nausea with vomiting, unspecified; I10 Essential (primary) hypertension; K21.9 Gastro-esophageal reflux disease without esophagitis; M19.90 Unspecified osteoarthritis, unspecified site; Z90.49 Acquired absence of other specified parts of digestive tract; Z79.899 Other long term (current) drug therapy; Z88.8 Allergy status to other drugs, medicaments and biological substances; Z91.018 Allergy to other foods
CPT/HCPCS: 36415; 70450; 71045; 72125; 74176; 80048; 81001; 83690; 85025; 87635; 93005; 96361; 96374; 96375; 99285; C9803; J2270; J2405; J7030

== ENCOUNTER 2021-06-26 19:32 | Emergency (ER) | payer MEDICARE, MEDICAID ==
[~2021-06-26] VITALS: Ht 160 cm; Wt 118.2 kg
[2021-06-26] MEDS ORDERED: normal saline 1000ML IV soln IVB ONE (20:10)
[2021-06-26] MEDS ORDERED: magnesium 2GM in 50ml NS 50 ML IV ONE (20:10)
[2021-06-26] MEDS ORDERED: morphine 4 MG/ML inj SYRINge IV ONE (20:10)
[2021-06-26] MEDS ORDERED: LORazepam 2 mg/ml vial IV ONE (20:10)
[2021-06-26] MEDS ORDERED: proCHLORperazine 10 MG/2 ml inj IV ONE (20:10)
[2021-06-26 20:26] LABS: BASOPHILS % (AUTO) 0.3 % (0-1); EOSINOPHILS # (AUTO) 0.2 X10'3 (0-0.9); LYMPHOCYTES # (AUTO) 1.3 X10'3 (1.1-4.8); MONOCYTES # (AUTO) 0.7 X10'3 (0-0.9)
[2021-06-26 20:28] LABS: EOSINOPHILS % (AUTO) 1.4 % (0-6); HEMATOCRIT 33.8 % (35.0-45.0); LYMPHOCYTES % (AUTO) 8.9 % (21-51); MEAN CORPUSCULAR HEMOGLOBIN 27.4 PG (27.0-31.0); MEAN CORPUSCULAR HGB CONC 32.5 g/dL (33.0-36.5); MEAN CORPUSCULAR VOLUME 84.3 FL (78-98); MONOCYTES % (AUTO) 4.8 % (2-12); NEUTROPHILS # (AUTO) 12.8 X10'3 (1.8-7.7); NEUTROPHILS % (AUTO) 84.6 % (42-75); PLATELET COUNT 507 X10'3 (140-440); RED BLOOD COUNT 4.01 X10'6 (4.20-5.60); RED CELL DISTRIBUTION WIDTH 14.9 % (11.5-14.5); WHITE BLOOD COUNT 15.1 X10'3 (4.5-11.0)
[2021-06-26 20:42] LABS: ALANINE AMINOTRANSFERASE 34 U/L (12-78); ALBUMIN 2.9 G/DL (3.4-5.0); ALBUMIN/GLOBULIN RATIO 0.7 (1.1-1.5); ALKALINE PHOSPHATASE 81 IU/L (46-116); ANION GAP 10 (8-16); ASPARTATE AMINO TRANSFERASE 24 U/L (10-37); BILIRUBIN,TOTAL 0.2 MG/DL (0.1-1.0); BLOOD UREA NITROGEN 11 MG/DL (7-18); BUN/CREATININE RATIO 16.9 (6.6-38.0); CALCIUM 8.2 MG/DL (8.5-10.1); CHLORIDE 100 MMOL/L (99-107); CREATINE KINASE 38 U/L (26-192); CREATININE 0.65 MG/DL (0.40-0.90); GLUCOSE 160 MG/DL (70-104); POTASSIUM 3.8 MMOL/L (3.5-5.1); SODIUM 134 MMOL/L (135-145); TOTAL CARBON DIOXIDE 24.3 MMOL/L (24-32); TOTAL PROTEIN 6.9 G/DL (6.4-8.2); eGFR > 90 ML/MIN
[2021-06-26 21:56] LABS: TOTAL CELLS COUNTED 100
[2021-06-26 21:57] LABS: PLATELET ESTIMATE INCREASED
[2021-06-26 22:18] VITALS: BP 133/75
[2021-06-27] MEDS ORDERED: POLY119P2 PO (22:36)
== END 2021-06-26 22:33 | disposition home or self-care (01) ==
LOC: ER 19:34
DX: G40.909 Epilepsy, unspecified, not intractable, without status epilepticus (principal); R51.9 Headache, unspecified; I10 Essential (primary) hypertension; K21.9 Gastro-esophageal reflux disease without esophagitis; M19.90 Unspecified osteoarthritis, unspecified site; Z90.49 Acquired absence of other specified parts of digestive tract; Z98.51 Tubal ligation status; Z98.890 Other specified postprocedural states; Z91.018 Allergy to other foods; Z88.5 Allergy status to narcotic agent; Z88.8 Allergy status to other drugs, medicaments and biological substances; Z79.899 Other long term (current) drug therapy
CPT/HCPCS: 36415; 80053; 82550; 85007; 85025; 96365; 96366; 96375; 99284; J0780; J2060; J2270; J3475; J7030

== ENCOUNTER 2021-07-11 18:03 | Emergency (ER) | payer MEDICARE, MEDICAID ==
[~2021-07-11] VITALS: Ht 160 cm; Wt 118.0 kg
[~2021-07-11 18:03] MED LIST changes: +POLY119P2 PO
[2021-07-11 20:17] VITALS: BP 154/74
[2021-07-11] MEDS ORDERED: iohexol 300mg/ml 100ml inj. ONE (20:45)
[2021-07-11] MEDS ORDERED: LORazepam 2 mg/ml vial IV ONE (20:45)
[2021-07-11] MEDS ORDERED: divalproex sodium 500mg tablet.DR PO STA (21:14)
[2021-07-11 21:36] LABS: BASOPHILS # (AUTO) 0.1 X10'3 (0-0.2); BASOPHILS % (AUTO) 0.5 % (0-1); EOSINOPHILS % (AUTO) 0.1 % (0-6); HEMATOCRIT 35.2 % (35.0-45.0); HEMOGLOBIN 11.5 g/dl (12.0-16.0); LYMPHOCYTES # (AUTO) 0.7 X10'3 (1.1-4.8); LYMPHOCYTES % (AUTO) 4.6 % (21-51); MEAN CORPUSCULAR HEMOGLOBIN 27.9 PG (27.0-31.0); MEAN CORPUSCULAR HGB CONC 32.7 g/dL (33.0-36.5); MEAN CORPUSCULAR VOLUME 85.5 FL (78-98); MONOCYTES # (AUTO) 0.5 X10'3 (0-0.9); MONOCYTES % (AUTO) 3.6 % (2-12); NEUTROPHILS # (AUTO) 13.1 X10'3 (1.8-7.7); NEUTROPHILS % (AUTO) 91.2 % (42-75); PLATELET COUNT 411 X10'3 (140-440); RED BLOOD COUNT 4.12 X10'6 (4.20-5.60); RED CELL DISTRIBUTION WIDTH 15.4 % (11.5-14.5); WHITE BLOOD COUNT 14.4 X10'3 (4.5-11.0)
[2021-07-11 21:54] LABS: ALANINE AMINOTRANSFERASE 34 U/L (12-78); ALBUMIN 3.2 G/DL (3.4-5.0); ALBUMIN/GLOBULIN RATIO 0.8 (1.1-1.5); ALKALINE PHOSPHATASE 72 IU/L (46-116); ANION GAP 10 (8-16); ASPARTATE AMINO TRANSFERASE 21 U/L (10-37); BILIRUBIN,DIRECT 0.1 MG/DL (0-0.3); BILIRUBIN,TOTAL 0.2 MG/DL (0.1-1.0); BLOOD UREA NITROGEN 14 MG/DL (7-18); BUN/CREATININE RATIO 18.2 (6.6-38.0); CALCIUM 8.7 MG/DL (8.5-10.1); CHLORIDE 97 MMOL/L (99-107); CREATININE 0.77 MG/DL (0.40-0.90); GLUCOSE 152 MG/DL (70-104); LIPASE < 50 U/L (73-393); POTASSIUM 4.3 MMOL/L (3.5-5.1); SODIUM 131 MMOL/L (135-145); TOTAL CARBON DIOXIDE 24.1 MMOL/L (24-32); TOTAL PROTEIN 7.2 G/DL (6.4-8.2); eGFR 76 ML/MIN
[2021-07-11] MEDS ORDERED: levetiracetam 250mg tablet PO ONE (22:25)
[2021-07-11] MEDS ORDERED: CEPH-585 PO (23:22)
== END 2021-07-11 23:58 | disposition home or self-care (01) ==
LOC: ER 18:03
DX: R10.84 Generalized abdominal pain (principal); R14.0 Abdominal distension (gaseous); G40.909 Epilepsy, unspecified, not intractable, without status epilepticus; I10 Essential (primary) hypertension; K21.9 Gastro-esophageal reflux disease without esophagitis; M19.90 Unspecified osteoarthritis, unspecified site; Z90.49 Acquired absence of other specified parts of digestive tract; Z98.51 Tubal ligation status; Z98.890 Other specified postprocedural states; Z88.8 Allergy status to other drugs, medicaments and biological substances; Z91.018 Allergy to other foods; Z79.899 Other long term (current) drug therapy
CPT/HCPCS: 36415; 70450; 74177; 80048; 80076; 83690; 85025; 96374; 99285; J2060; Q9967

== ENCOUNTER 2021-07-21 21:09 | Emergency (ER) | payer MEDICARE, MEDICAID ==
[~2021-07-21] VITALS: Ht 160 cm; Wt 117.2 kg
[~2021-07-21 21:09] MED LIST changes: +CEPH-585 PO
--- NOTE | 2021-07-21 22:59 | NUR ---
patient sitting comfortably in bed, with warm blanket.
[2021-07-21] MEDS ORDERED: LORazepam 1 MG tablet PO ONE (23:55)
[2021-07-21 23:58] VITALS: BP 145/75
== END 2021-07-22 | disposition home or self-care (01) ==
LOC: ER 21:09
DX: R10.10 Upper abdominal pain, unspecified (principal); G89.29 Other chronic pain; I10 Essential (primary) hypertension; K21.9 Gastro-esophageal reflux disease without esophagitis; F41.9 Anxiety disorder, unspecified; Z86.69 Personal history of other diseases of the nervous system and sense organs; Z90.49 Acquired absence of other specified parts of digestive tract; Z98.51 Tubal ligation status; Z98.890 Other specified postprocedural states; Z88.5 Allergy status to narcotic agent; Z88.6 Allergy status to analgesic agent; Z91.018 Allergy to other foods; Z79.2 Long term (current) use of antibiotics; Z79.899 Other long term (current) drug therapy
CPT/HCPCS: 99284

== ENCOUNTER 2021-07-22 17:52 | Emergency (ER) | payer MEDICARE, MEDICAID ==
[~2021-07-22] VITALS: Ht 160 cm; Wt 117.3 kg
[2021-07-22 19:41] LABS: BASOPHILS # (AUTO) 0.2 X10'3 (0-0.2); BASOPHILS % (AUTO) 1.5 % (0-1); EOSINOPHILS # (AUTO) 0.1 X10'3 (0-0.9); HEMATOCRIT 36.1 % (35.0-45.0); HEMOGLOBIN 11.8 g/dl (12.0-16.0); LYMPHOCYTES # (AUTO) 1.2 X10'3 (1.1-4.8); LYMPHOCYTES % (AUTO) 11.1 % (21-51); MEAN CORPUSCULAR HEMOGLOBIN 27.5 PG (27.0-31.0); MEAN CORPUSCULAR HGB CONC 32.8 g/dL (33.0-36.5); MEAN PLATELET VOLUME 6.9 FL (7.4-10.4); MONOCYTES # (AUTO) 0.6 X10'3 (0-0.9); MONOCYTES % (AUTO) 5.8 % (2-12); NEUTROPHILS # (AUTO) 8.5 X10'3 (1.8-7.7); NEUTROPHILS % (AUTO) 80.6 % (42-75); PLATELET COUNT 544 X10'3 (140-440); RED BLOOD COUNT 4.29 X10'6 (4.20-5.60); RED CELL DISTRIBUTION WIDTH 15.4 % (11.5-14.5); WHITE BLOOD COUNT 10.5 X10'3 (4.5-11.0)
[2021-07-22 19:47] LABS: ALANINE AMINOTRANSFERASE 39 U/L (12-78); ALBUMIN 3.3 G/DL (3.4-5.0); ALBUMIN/GLOBULIN RATIO 0.8 (1.1-1.5); ALKALINE PHOSPHATASE 88 IU/L (46-116); ANION GAP 9 (8-16); ASPARTATE AMINO TRANSFERASE 22 U/L (10-37); BILIRUBIN,TOTAL 0.3 MG/DL (0.1-1.0); BLOOD UREA NITROGEN 14 MG/DL (7-18); BUN/CREATININE RATIO 18.4 (6.6-38.0); CALCIUM 8.6 MG/DL (8.5-10.1); CHLORIDE 99 MMOL/L (99-107); CREATININE 0.76 MG/DL (0.40-0.90); GLUCOSE 129 MG/DL (70-104); POTASSIUM 3.8 MMOL/L (3.5-5.1); SODIUM 134 MMOL/L (135-145); TOTAL CARBON DIOXIDE 26.4 MMOL/L (24-32); TOTAL PROTEIN 7.7 G/DL (6.4-8.2); eGFR 77 ML/MIN
--- NOTE | 2021-07-22 22:09 | NUR ---
PT REPORTS PAIN TO HER HEAD, RIGHT JEWISH AND RIGHT EYE AND PAIN TO THE RIGHT UPPER ABDOMEN.
[2021-07-22] MEDS ORDERED: bisacodyl 10mg suppository rectal RC STA (23:29)
[2021-07-22] MEDS ORDERED: levetiracetam 250mg tablet PO ONE (23:30)
[2021-07-22] MEDS ORDERED: LORazepam 1 MG tablet PO ONE (23:30)
[2021-07-22] MEDS ORDERED: ketorolac trometh inj. 60 MG/2 ML VIAL IM ONE (23:35)
[2021-07-23 00:07] VITALS: BP 156/80
== END 2021-07-23 00:12 | disposition home or self-care (01) ==
LOC: ER 17:52
DX: S00.93XA Contusion of unspecified part of head, initial encounter (principal); R56.9 Unspecified convulsions; K59.00 Constipation, unspecified; R10.10 Upper abdominal pain, unspecified; I10 Essential (primary) hypertension; K21.9 Gastro-esophageal reflux disease without esophagitis; F41.9 Anxiety disorder, unspecified; Z86.69 Personal history of other diseases of the nervous system and sense organs; Z90.49 Acquired absence of other specified parts of digestive tract; Z98.51 Tubal ligation status; Z98.890 Other specified postprocedural states; Z88.5 Allergy status to narcotic agent; Z88.6 Allergy status to analgesic agent; Z88.8 Allergy status to other drugs, medicaments and biological substances; Z91.018 Allergy to other foods; Z79.2 Long term (current) use of antibiotics; Z79.899 Other long term (current) drug therapy; X58.XXXA Exposure to other specified factors, initial encounter; Y93.89 Activity, other specified; Y92.89 Other specified places as the place of occurrence of the external cause; Y99.8 Other external cause status
CPT/HCPCS: 36415; 70450; 72125; 80053; 85025; 93005; 96372; 99285; J1885

== ENCOUNTER 2021-08-20 07:22 | Emergency (ER) | payer MEDICARE, MEDICAID ==
[~2021-08-20] VITALS: Ht 160 cm; Wt 118.2 kg
[2021-08-20 07:51] VITALS: BP 140/73
[2021-08-20] MEDS ORDERED: diphenhydrAMINE 25mg capsule PO ONE (08:15)
[2021-08-20] MEDS ORDERED: ketorolac trometh. 30mg/ml inj. IM ONE (08:15)
[2021-08-20] MEDS ORDERED: HYDROcodone/acetaminophen 5mg/325mg tablet PO ONE (08:15)
== END 2021-08-20 10:31 | disposition home or self-care (01) ==
LOC: ER 07:22
DX: R56.9 Unspecified convulsions (principal); R51.9 Headache, unspecified; R11.0 Nausea; I10 Essential (primary) hypertension; K21.9 Gastro-esophageal reflux disease without esophagitis; M19.90 Unspecified osteoarthritis, unspecified site; Z90.49 Acquired absence of other specified parts of digestive tract; Z98.84 Bariatric surgery status; Z79.2 Long term (current) use of antibiotics; Z79.899 Other long term (current) drug therapy; Z88.8 Allergy status to other drugs, medicaments and biological substances; Z91.018 Allergy to other foods
CPT/HCPCS: 96372; 99283; J1885; Q0163

== ENCOUNTER 2021-08-20 18:33 | Emergency (ER) | payer MEDICARE, MEDICAID ==
[~2021-08-20] VITALS: Ht 160 cm; Wt 118.2 kg
[~2021-08-20 18:33] MED LIST changes: -LISI-790 PO; +LISI5TAB22 PO
[2021-08-20 18:48] VITALS: BP 159/100
--- NOTE | 2021-08-20 18:57 | NUR ---
pain/pressure behind right eye 10/10
[2021-08-20] MEDS ORDERED: acetaminophen 325mg tablet PO ONE (19:45)
[2021-08-20] MEDS ORDERED: ketorolac trometh. 30mg/ml inj. IM ONE (19:45)
== END 2021-08-20 20:12 | disposition home or self-care (01) ==
LOC: ER 18:34
DX: G40.909 Epilepsy, unspecified, not intractable, without status epilepticus (principal); I10 Essential (primary) hypertension; K21.9 Gastro-esophageal reflux disease without esophagitis; M19.90 Unspecified osteoarthritis, unspecified site; Z90.49 Acquired absence of other specified parts of digestive tract; Z98.84 Bariatric surgery status; Z98.890 Other specified postprocedural states
CPT/HCPCS: 96372; 99283; J1885

== ENCOUNTER 2021-09-01 19:17 | Emergency (ER) | payer MEDICARE, MEDICAID ==
[~2021-09-01] VITALS: Ht 160 cm; Wt 118.2 kg
[~2021-09-01 19:17] MED LIST changes: +LISI-790 PO; -LISI5TAB22 PO
--- NOTE | 2021-09-02 02:39 | NUR ---
SEIZURE PRECUATIONS IN PLACE WITH PADDING ON BED. BED LOW TO GROUND AND LOCKED INTO POSITION. SIDE RAILS UP.
[2021-09-02] MEDS ORDERED: acetaminophen 325mg tablet PO ONE (02:45)
[2021-09-02] MEDS ORDERED: ketorolac trometh. 30mg/ml inj. IV ONE (03:00)
[2021-09-02 03:12] LABS: BASOPHILS # (AUTO) 0.1 X10'3 (0-0.2); BASOPHILS % (AUTO) 0.8 % (0-1); EOSINOPHILS # (AUTO) 0.1 X10'3 (0-0.9); EOSINOPHILS % (AUTO) 1.5 % (0-6); HEMATOCRIT 37.2 % (35.0-45.0); HEMOGLOBIN 12.1 g/dl (12.0-16.0); LYMPHOCYTES # (AUTO) 1.4 X10'3 (1.1-4.8); LYMPHOCYTES % (AUTO) 18.7 % (21-51); MEAN CORPUSCULAR HEMOGLOBIN 27.6 PG (27.0-31.0); MEAN CORPUSCULAR HGB CONC 32.5 g/dL (33.0-36.5); MEAN CORPUSCULAR VOLUME 84.9 FL (78-98); MEAN PLATELET VOLUME 7.1 FL (7.4-10.4); MONOCYTES # (AUTO) 0.5 X10'3 (0-0.9); MONOCYTES % (AUTO) 6.1 % (2-12); NEUTROPHILS # (AUTO) 5.6 X10'3 (1.8-7.7); NEUTROPHILS % (AUTO) 72.9 % (42-75); PLATELET COUNT 453 X10'3 (140-440); RED BLOOD COUNT 4.38 X10'6 (4.20-5.60); RED CELL DISTRIBUTION WIDTH 17.8 % (11.5-14.5); WHITE BLOOD COUNT 7.7 X10'3 (4.5-11.0)
[2021-09-02 03:28] LABS: ALANINE AMINOTRANSFERASE 30 U/L (12-78); ALBUMIN 3.7 G/DL (3.4-5.0); ALBUMIN/GLOBULIN RATIO 0.9 (1.1-1.5); ALKALINE PHOSPHATASE 89 IU/L (46-116); ANION GAP 10 (8-16); ASPARTATE AMINO TRANSFERASE 16 U/L (10-37); BILIRUBIN,TOTAL 0.3 MG/DL (0.1-1.0); BLOOD UREA NITROGEN 13 MG/DL (7-18); BUN/CREATININE RATIO 17.6 (6.6-38.0); CALCIUM 9.1 MG/DL (8.5-10.1); CHLORIDE 102 MMOL/L (99-107); CREATININE 0.74 MG/DL (0.40-0.90); GLUCOSE 105 MG/DL (70-104); SODIUM 138 MMOL/L (135-145); eGFR 80 ML/MIN
[2021-09-02 04:22] VITALS: BP 159/81
== END 2021-09-02 04:33 | disposition home or self-care (01) ==
LOC: ER 19:17
DX: G40.909 Epilepsy, unspecified, not intractable, without status epilepticus (principal); R51.9 Headache, unspecified; I10 Essential (primary) hypertension; K21.9 Gastro-esophageal reflux disease without esophagitis; F41.9 Anxiety disorder, unspecified; Z86.69 Personal history of other diseases of the nervous system and sense organs; Z90.49 Acquired absence of other specified parts of digestive tract; Z98.51 Tubal ligation status; Z98.890 Other specified postprocedural states; Z88.8 Allergy status to other drugs, medicaments and biological substances; Z88.5 Allergy status to narcotic agent; Z91.018 Allergy to other foods; Z79.2 Long term (current) use of antibiotics; Z79.899 Other long term (current) drug therapy
CPT/HCPCS: 36415; 80053; 85025; 96374; 99283; J1885

== ENCOUNTER 2021-09-04 18:05 | Emergency (ER) | payer MEDICARE, MEDICAID ==
[~2021-09-04] VITALS: Ht 162.6 cm; Wt 113.6 kg
[2021-09-04] MEDS ORDERED: ketorolac tromethamine 15mg/ml inj. IM ONE (22:45)
[2021-09-04 22:50] VITALS: BP 140/86
== END 2021-09-04 23:00 | disposition home or self-care (01) ==
LOC: ER 18:05
DX: R56.9 Unspecified convulsions (principal); G40.909 Epilepsy, unspecified, not intractable, without status epilepticus; I10 Essential (primary) hypertension; K21.9 Gastro-esophageal reflux disease without esophagitis; M19.90 Unspecified osteoarthritis, unspecified site; Z90.49 Acquired absence of other specified parts of digestive tract; Z98.51 Tubal ligation status
CPT/HCPCS: 96372; 99283; J1885

== ENCOUNTER 2021-09-11 20:38 | Emergency (ER) | payer MEDICARE, MEDICAID ==
[~2021-09-11] VITALS: Ht 160 cm; Wt 113.6 kg
[2021-09-11] MEDS ORDERED: LORazepam 1 MG tablet PO ONE (21:15)
[2021-09-11] MEDS ORDERED: ketorolac tromethamine 15mg/ml inj. IM ONE (21:15)
[2021-09-11 21:47] LABS: BASOPHILS # (AUTO) 0.1 X10'3 (0-0.2); BASOPHILS % (AUTO) 0.6 % (0-1); EOSINOPHILS # (AUTO) 0.2 X10'3 (0-0.9); EOSINOPHILS % (AUTO) 2.1 % (0-6); HEMATOCRIT 34.1 % (35.0-45.0); HEMOGLOBIN 11.3 g/dl (12.0-16.0); LYMPHOCYTES # (AUTO) 1.2 X10'3 (1.1-4.8); LYMPHOCYTES % (AUTO) 12.6 % (21-51); MEAN CORPUSCULAR HEMOGLOBIN 27.9 PG (27.0-31.0); MEAN CORPUSCULAR HGB CONC 33.3 g/dL (33.0-36.5); MEAN CORPUSCULAR VOLUME 83.8 FL (78-98); MEAN PLATELET VOLUME 7.2 FL (7.4-10.4); MONOCYTES # (AUTO) 0.6 X10'3 (0-0.9); MONOCYTES % (AUTO) 6.8 % (2-12); NEUTROPHILS # (AUTO) 7.2 X10'3 (1.8-7.7); NEUTROPHILS % (AUTO) 77.9 % (42-75); PLATELET COUNT 390 X10'3 (140-440); RED BLOOD COUNT 4.07 X10'6 (4.20-5.60); RED CELL DISTRIBUTION WIDTH 17.7 % (11.5-14.5); WHITE BLOOD COUNT 9.2 X10'3 (4.5-11.0)
[2021-09-11 23:10] LABS: CHLORIDE 100 MMOL/L (99-107); GLUCOSE 96 MG/DL (70-104); SODIUM 134 MMOL/L (135-145)
[2021-09-11 23:11] LABS: ALANINE AMINOTRANSFERASE 29 U/L (12-78); ALBUMIN 3.3 G/DL (3.4-5.0); ALBUMIN/GLOBULIN RATIO 0.9 (1.1-1.5); ALKALINE PHOSPHATASE 78 IU/L (46-116); ANION GAP 7 (8-16); ASPARTATE AMINO TRANSFERASE 20 U/L (10-37); BILIRUBIN,TOTAL 0.2 MG/DL (0.1-1.0); BLOOD UREA NITROGEN 15 MG/DL (7-18); BUN/CREATININE RATIO 17.9 (6.6-38.0); CALCIUM 8.5 MG/DL (8.5-10.1); CREATININE 0.84 MG/DL (0.40-0.90); TOTAL PROTEIN 7.1 G/DL (6.4-8.2); eGFR 69 ML/MIN
[2021-09-11 23:23] VITALS: BP 143/89
== END 2021-09-11 23:24 | disposition home or self-care (01) ==
LOC: ER 20:38
DX: G40.909 Epilepsy, unspecified, not intractable, without status epilepticus (principal); H57.11 Ocular pain, right eye; I10 Essential (primary) hypertension; K21.9 Gastro-esophageal reflux disease without esophagitis; M81.0 Age-related osteoporosis without current pathological fracture; Z90.49 Acquired absence of other specified parts of digestive tract; Z98.51 Tubal ligation status; Z88.8 Allergy status to other drugs, medicaments and biological substances; Z91.018 Allergy to other foods; Z79.899 Other long term (current) drug therapy
CPT/HCPCS: 36415; 80053; 85025; 96372; 99284; J1885

== ENCOUNTER 2021-09-12 17:46 | Emergency (ER) | payer MEDICARE, MEDICAID ==
[~2021-09-12] VITALS: Ht 160 cm; Wt 113.6 kg
[~2021-09-12 17:46] MED LIST changes: -LISI-790 PO; +LISI5TAB22 PO
[2021-09-12] MEDS ORDERED: LORazepam 2 mg/ml vial IM ONE (20:15)
[2021-09-12] MEDS ORDERED: acetaminophen 325mg tablet PO ONE (21:00)
[2021-09-12 21:11] VITALS: BP 148/78
== END 2021-09-12 21:54 | disposition hospice, inpatient (51) ==
LOC: ER 17:46
DX: G40.309 Generalized idiopathic epilepsy and epileptic syndromes, not intractable, without status epilepticus (principal); R25.1 Tremor, unspecified; M54.50 Low back pain, unspecified; R19.7 Diarrhea, unspecified; R06.02 Shortness of breath; K21.9 Gastro-esophageal reflux disease without esophagitis; M19.90 Unspecified osteoarthritis, unspecified site; I10 Essential (primary) hypertension; Z90.49 Acquired absence of other specified parts of digestive tract; Z98.51 Tubal ligation status; Z98.890 Other specified postprocedural states; Z88.8 Allergy status to other drugs, medicaments and biological substances; Z91.018 Allergy to other foods; Z79.2 Long term (current) use of antibiotics; Z79.899 Other long term (current) drug therapy
CPT/HCPCS: 71045; 96372; 99285; J2060; 99284

== ENCOUNTER 2021-09-19 19:59 | Emergency (ER) | payer MEDICARE, MEDICAID ==
[~2021-09-19] VITALS: Ht 160 cm; Wt 109.0 kg
[2021-09-19] MEDS ORDERED: BISA-78 PO (21:29)
[2021-09-19] MEDS ORDERED: MAGN296S68 PO (21:29)
[2021-09-19] MEDS ORDERED: magnesium citrate 296ml oral solution PO ONE (21:30)
[2021-09-19] MEDS ORDERED: bisacodyl 5mg tablet.DR PO ONE (21:30)
[2021-09-19 23:14] VITALS: BP 100/59
== END 2021-09-19 23:16 | disposition home or self-care (01) ==
LOC: ER 20:00
DX: G40.909 Epilepsy, unspecified, not intractable, without status epilepticus (principal); K59.00 Constipation, unspecified; I10 Essential (primary) hypertension; K21.9 Gastro-esophageal reflux disease without esophagitis; M19.90 Unspecified osteoarthritis, unspecified site; Z90.49 Acquired absence of other specified parts of digestive tract; Z98.51 Tubal ligation status; Z88.8 Allergy status to other drugs, medicaments and biological substances; Z91.018 Allergy to other foods; Z79.2 Long term (current) use of antibiotics; Z79.899 Other long term (current) drug therapy
CPT/HCPCS: 74018; 99284

== ENCOUNTER 2021-10-11 18:16 | Emergency (ER) | payer MEDICARE, MEDICAID ==
[~2021-10-11] VITALS: Ht 165.1 cm; Wt 88.6 kg
[~2021-10-11 18:16] MED LIST changes: +BISA-78 PO; +MAGN296S68 PO
[2021-10-11] MEDS ORDERED: normal saline 1000ML IV soln IVB ONE (18:35)
[2021-10-11 19:26] LABS: BASOPHILS # (AUTO) 0.1 X10'3 (0-0.2); BASOPHILS % (AUTO) 0.7 % (0-1); EOSINOPHILS # (AUTO) 0.2 X10'3 (0-0.9); EOSINOPHILS % (AUTO) 2.4 % (0-6); HEMATOCRIT 35.8 % (35.0-45.0); LYMPHOCYTES # (AUTO) 1.5 X10'3 (1.1-4.8); LYMPHOCYTES % (AUTO) 16.4 % (21-51); MEAN CORPUSCULAR HEMOGLOBIN 28.1 PG (27.0-31.0); MEAN CORPUSCULAR HGB CONC 33.6 g/dL (33.0-36.5); MEAN CORPUSCULAR VOLUME 83.6 FL (78-98); MEAN PLATELET VOLUME 7.1 FL (7.4-10.4); MONOCYTES # (AUTO) 0.5 X10'3 (0-0.9); MONOCYTES % (AUTO) 5.9 % (2-12); NEUTROPHILS # (AUTO) 6.7 X10'3 (1.8-7.7); NEUTROPHILS % (AUTO) 74.6 % (42-75); PLATELET COUNT 425 X10'3 (140-440); RED BLOOD COUNT 4.28 X10'6 (4.20-5.60); RED CELL DISTRIBUTION WIDTH 16.6 % (11.5-14.5)
[2021-10-11 19:36] LABS: ALANINE AMINOTRANSFERASE 29 U/L (12-78); ALBUMIN 3.6 G/DL (3.4-5.0); ALBUMIN/GLOBULIN RATIO 0.9 (1.1-1.5); ALKALINE PHOSPHATASE 88 IU/L (46-116); ANION GAP 9 (8-16); ASPARTATE AMINO TRANSFERASE 19 U/L (10-37); BILIRUBIN,TOTAL 0.2 MG/DL (0.1-1.0); BLOOD UREA NITROGEN 18 MG/DL (7-18); BUN/CREATININE RATIO 16.8 (6.6-38.0); CALCIUM 8.9 MG/DL (8.5-10.1); CHLORIDE 101 MMOL/L (99-107); CREATININE 1.07 MG/DL (0.40-0.90); GLUCOSE 108 MG/DL (70-104); POTASSIUM 4.1 MMOL/L (3.5-5.1); SODIUM 136 MMOL/L (135-145); TOTAL CARBON DIOXIDE 26.5 MMOL/L (24-32); TOTAL PROTEIN 7.7 G/DL (6.4-8.2); eGFR 52 ML/MIN
[2021-10-11 19:37] LABS: CREATINE KINASE 37 U/L (26-192)
--- NOTE | 2021-10-11 20:38 | NUR ---
patient to restroom via W/C, no assistance needed.
[2021-10-11 21:19] VITALS: BP 139/89
--- NOTE | 2021-10-11 21:21 | NUR ---
Pt given and understands d/c instructions.
[2021-10-11] MEDS: acetaminophen 325mg tablet PO ONE (21:41)
== END 2021-10-11 22:00 | disposition home or self-care (01) ==
LOC: ER 18:17
DX: G40.909 Epilepsy, unspecified, not intractable, without status epilepticus (principal); I10 Essential (primary) hypertension; M19.90 Unspecified osteoarthritis, unspecified site; K21.9 Gastro-esophageal reflux disease without esophagitis; Z88.8 Allergy status to other drugs, medicaments and biological substances; Z90.49 Acquired absence of other specified parts of digestive tract; Z98.51 Tubal ligation status; Z79.2 Long term (current) use of antibiotics
CPT/HCPCS: 36415; 80053; 82140; 82550; 85025; 93005; 99284

== ENCOUNTER 2021-10-12 07:04 | Emergency (ER) | payer MEDICARE, MEDICAID ==
[~2021-10-12] VITALS: Ht 160 cm; Wt 130.0 kg
--- NOTE | 2021-10-12 07:33 | NUR ---
to CT. called and stated pt did not hit head during seizure.
[2021-10-12] MEDS ORDERED: ketorolac trometh inj. 60 MG/2 ML VIAL IM ONE (08:00)
[2021-10-12 08:36] VITALS: BP 160/82
== END 2021-10-12 11:02 | disposition home or self-care (01) ==
LOC: ER 07:05
DX: G40.909 Epilepsy, unspecified, not intractable, without status epilepticus (principal); I10 Essential (primary) hypertension
CPT/HCPCS: 70450; 96372; 99284; J1885

== ENCOUNTER 2021-10-30 17:41 | Emergency (ER) | payer MEDICARE, MEDICAID ==
[~2021-10-30] VITALS: Ht 162.6 cm; Wt 113.6 kg
[2021-10-30 18:06] VITALS: BP 199/101
[2021-10-30 18:59] LABS: MEAN PLATELET VOLUME 7.5 FL (7.4-10.4); RED CELL DISTRIBUTION WIDTH 16.3 % (11.5-14.5)
[2021-10-30 19:01] LABS: BASOPHILS # (AUTO) 0.1 X10'3 (0-0.2); BASOPHILS % (AUTO) 0.9 % (0-1); EOSINOPHILS # (AUTO) 0.2 X10'3 (0-0.9); EOSINOPHILS % (AUTO) 2.6 % (0-6); HEMOGLOBIN 11.9 g/dl (12.0-16.0); LYMPHOCYTES # (AUTO) 1.6 X10'3 (1.1-4.8); LYMPHOCYTES % (AUTO) 19.5 % (21-51); MEAN CORPUSCULAR HEMOGLOBIN 28.3 PG (27.0-31.0); MEAN CORPUSCULAR HGB CONC 34.1 g/dL (33.0-36.5); MEAN CORPUSCULAR VOLUME 83.1 FL (78-98); MONOCYTES # (AUTO) 0.5 X10'3 (0-0.9); MONOCYTES % (AUTO) 6.3 % (2-12); NEUTROPHILS # (AUTO) 5.7 X10'3 (1.8-7.7); NEUTROPHILS % (AUTO) 70.7 % (42-75); PLATELET COUNT 349 X10'3 (140-440); RED BLOOD COUNT 4.21 X10'6 (4.20-5.60); WHITE BLOOD COUNT 8.1 X10'3 (4.5-11.0)
[2021-10-30 19:09] LABS: ALANINE AMINOTRANSFERASE 30 U/L (12-78); ALBUMIN 3.5 G/DL (3.4-5.0); ALBUMIN/GLOBULIN RATIO 0.9 (1.1-1.5); ALKALINE PHOSPHATASE 93 IU/L (46-116); ANION GAP 9 (8-16); ASPARTATE AMINO TRANSFERASE 18 U/L (10-37); BILIRUBIN,TOTAL 0.2 MG/DL (0.1-1.0); BLOOD UREA NITROGEN 16 MG/DL (7-18); BUN/CREATININE RATIO 20.5 (6.6-38.0); CALCIUM 8.8 MG/DL (8.5-10.1); CHLORIDE 101 MMOL/L (99-107); CREATININE 0.78 MG/DL (0.40-0.90); GLUCOSE 122 MG/DL (70-104); POTASSIUM 4.2 MMOL/L (3.5-5.1); SODIUM 137 MMOL/L (135-145); TOTAL CARBON DIOXIDE 27.2 MMOL/L (24-32); TOTAL PROTEIN 7.5 G/DL (6.4-8.2); eGFR 75 ML/MIN
[2021-10-30] MEDS ORDERED: ketorolac trometh. 30mg/ml inj. IM ONE (19:20)
== END 2021-10-30 20:07 | disposition home or self-care (01) ==
LOC: ER 17:42
DX: G40.909 Epilepsy, unspecified, not intractable, without status epilepticus (principal); I10 Essential (primary) hypertension; K21.9 Gastro-esophageal reflux disease without esophagitis; M19.90 Unspecified osteoarthritis, unspecified site; Z90.49 Acquired absence of other specified parts of digestive tract; Z98.51 Tubal ligation status; Z88.8 Allergy status to other drugs, medicaments and biological substances; Z91.018 Allergy to other foods; Z79.2 Long term (current) use of antibiotics; Z79.899 Other long term (current) drug therapy
CPT/HCPCS: 80053; 85025; 96372; 99283; J1885

== ENCOUNTER 2021-10-31 07:25 | Emergency (ER) | payer MEDICARE, MEDICAID ==
[~2021-10-31] VITALS: Ht 165.1 cm; Wt 130.0 kg
[2021-10-31 07:30] VITALS: BP 173/95
== END 2021-10-31 08:08 | disposition home or self-care (01) ==
LOC: ER 07:26
DX: G40.909 Epilepsy, unspecified, not intractable, without status epilepticus (principal); I10 Essential (primary) hypertension; K21.9 Gastro-esophageal reflux disease without esophagitis; M19.90 Unspecified osteoarthritis, unspecified site; Z90.49 Acquired absence of other specified parts of digestive tract; Z88.8 Allergy status to other drugs, medicaments and biological substances; Z91.014 Allergy to mammalian meats; Z79.2 Long term (current) use of antibiotics; Z79.899 Other long term (current) drug therapy; Z98.51 Tubal ligation status
CPT/HCPCS: 99283

== ENCOUNTER 2021-11-16 13:11 | Emergency (ER) | payer MEDICARE, MEDICAID ==
[~2021-11-16] VITALS: Ht 167.6 cm; Wt 130.0 kg
[2021-11-16] MEDS ORDERED: LORazepam 2 mg/ml vial IM ONE (13:55)
[2021-11-16 15:31] VITALS: BP 158/80
== END 2021-11-16 15:36 | disposition home or self-care (01) ==
LOC: ER 13:11
DX: R56.9 Unspecified convulsions (principal); I10 Essential (primary) hypertension; K21.9 Gastro-esophageal reflux disease without esophagitis; F41.9 Anxiety disorder, unspecified; Z90.49 Acquired absence of other specified parts of digestive tract; Z98.51 Tubal ligation status; Z98.890 Other specified postprocedural states; Z88.5 Allergy status to narcotic agent; Z88.8 Allergy status to other drugs, medicaments and biological substances; Z91.018 Allergy to other foods; Z79.899 Other long term (current) drug therapy; Z79.2 Long term (current) use of antibiotics
CPT/HCPCS: 82948; 96372; 99284; J2060

== ENCOUNTER 2022-01-07 20:48 | Emergency (ER) | payer MEDICARE, MEDICAID ==
[~2022-01-07] VITALS: Ht 160 cm; Wt 118.2 kg
[2022-01-07 22:04] LABS: BASOPHILS # (AUTO) 0.1 X10'3 (0-0.2); BASOPHILS % (AUTO) 0.9 % (0-1); EOSINOPHILS # (AUTO) 0.2 X10'3 (0-0.9); EOSINOPHILS % (AUTO) 1.9 % (0-6); HEMATOCRIT 35.4 % (35.0-45.0); HEMOGLOBIN 11.6 g/dl (12.0-16.0); LYMPHOCYTES # (AUTO) 1.4 X10'3 (1.1-4.8); LYMPHOCYTES % (AUTO) 16.8 % (21-51); MEAN CORPUSCULAR HEMOGLOBIN 28.3 PG (27.0-31.0); MEAN CORPUSCULAR HGB CONC 32.9 g/dL (33.0-36.5); MEAN PLATELET VOLUME 7.3 FL (7.4-10.4); MONOCYTES # (AUTO) 0.6 X10'3 (0-0.9); MONOCYTES % (AUTO) 7.6 % (2-12); NEUTROPHILS # (AUTO) 6.1 X10'3 (1.8-7.7); NEUTROPHILS % (AUTO) 72.8 % (42-75); PLATELET COUNT 341 X10'3 (140-440); RED BLOOD COUNT 4.12 X10'6 (4.20-5.60); RED CELL DISTRIBUTION WIDTH 16.2 % (11.5-14.5); WHITE BLOOD COUNT 8.3 X10'3 (4.5-11.0)
[2022-01-07] MEDS ORDERED: normal saline 1000ml 1,000 ML IV ONE (22:10)
[2022-01-07 22:23] LABS: ALANINE AMINOTRANSFERASE 28 U/L (12-78); ALBUMIN 3.3 G/DL (3.4-5.0); ALBUMIN/GLOBULIN RATIO 1.1 (1.1-1.5); ALKALINE PHOSPHATASE 90 IU/L (46-116); ANION GAP 13 (8-16); ASPARTATE AMINO TRANSFERASE 20 U/L (10-37); BILIRUBIN,TOTAL 0.1 MG/DL (0.1-1.0); BLOOD UREA NITROGEN 18 MG/DL (7-18); BUN/CREATININE RATIO 21.7 (6.6-38.0); CALCIUM 8.6 MG/DL (8.5-10.1); CHLORIDE 101 MMOL/L (99-107); CREATININE 0.83 MG/DL (0.40-0.90); GLUCOSE 110 MG/DL (70-104); POTASSIUM 3.9 MMOL/L (3.5-5.1); SODIUM 140 MMOL/L (135-145); TOTAL CARBON DIOXIDE 26.5 MMOL/L (24-32); TOTAL PROTEIN 6.3 G/DL (6.4-8.2); eGFR 70 ML/MIN
[2022-01-07] MEDS ORDERED: metoclopramide 5 mg/ml inj IV ONE (23:15)
[2022-01-07] MEDS ORDERED: diphenhydrAMINE 50 mg/ml inj IV ONE (23:20)
[2022-01-07 23:27] LABS: CLARITY,URINE CLEAR (Clear); COLOR,URINE YELLOW (Yellow); GLUCOSE, URINE NEGATIVE (Neg); KETONES,URINE NEGATIVE (Neg); LEUKOCYTE ESTERASE ,URINE NEGATIVE (Neg); NITRITES, URINE NEGATIVE (Neg); OCCULT BLOOD,URINE NEGATIVE (Neg); PH,URINE 5.5 (4.8-8.0); PROTEIN,URINE NEGATIVE (Neg); UROBILINOGEN,URINE 0.2 E.U/dL (0.2-1.0)
[2022-01-07 23:31] LABS: UA COLLECTION TYPE OTHER
[2022-01-07 23:45] VITALS: BP 146/93
== END 2022-01-08 00:45 | disposition home or self-care (01) ==
LOC: ER 20:49
DX: R56.9 Unspecified convulsions (principal); R10.84 Generalized abdominal pain; R53.1 Weakness; M25.561 Pain in right knee; R51.9 Headache, unspecified; R09.81 Nasal congestion; R06.02 Shortness of breath; M25.511 Pain in right shoulder; K21.9 Gastro-esophageal reflux disease without esophagitis; F41.9 Anxiety disorder, unspecified; Z86.69 Personal history of other diseases of the nervous system and sense organs; Z90.49 Acquired absence of other specified parts of digestive tract; Z98.51 Tubal ligation status; Z98.890 Other specified postprocedural states; Z88.8 Allergy status to other drugs, medicaments and biological substances; Z88.5 Allergy status to narcotic agent; Z79.2 Long term (current) use of antibiotics; Z79.899 Other long term (current) drug therapy
CPT/HCPCS: 36415; 71045; 73030; 73560; 80053; 81003; 85025; 93005; 96361; 96374; 96375; 99285; J1200; J2765; J7030

== ENCOUNTER 2022-01-08 19:06 | Emergency (ER) | payer MEDICARE, MEDICAID ==
[~2022-01-08] VITALS: Ht 160 cm; Wt 113.0 kg
[2022-01-08] MEDS ORDERED: normal saline 1000ML IV soln IVB ONE (19:30)
[2022-01-08 19:52] LABS: BASOPHILS % (AUTO) 0.6 % (0-1); EOSINOPHILS # (AUTO) 0.1 X10'3 (0-0.9); HEMOGLOBIN 11.8 g/dl (12.0-16.0); LYMPHOCYTES # (AUTO) 1.8 X10'3 (1.1-4.8); LYMPHOCYTES % (AUTO) 24.1 % (21-51); MEAN CORPUSCULAR HEMOGLOBIN 28.4 PG (27.0-31.0); MEAN CORPUSCULAR HGB CONC 32.9 g/dL (33.0-36.5); MEAN CORPUSCULAR VOLUME 86.5 FL (78-98); MEAN PLATELET VOLUME 7.6 FL (7.4-10.4); MONOCYTES # (AUTO) 0.4 X10'3 (0-0.9); MONOCYTES % (AUTO) 5.8 % (2-12); NEUTROPHILS # (AUTO) 4.9 X10'3 (1.8-7.7); NEUTROPHILS % (AUTO) 67.5 % (42-75); PLATELET COUNT 374 X10'3 (140-440); RED BLOOD COUNT 4.17 X10'6 (4.20-5.60); RED CELL DISTRIBUTION WIDTH 16.5 % (11.5-14.5); WHITE BLOOD COUNT 7.3 X10'3 (4.5-11.0)
[2022-01-08 19:54] LABS: ALANINE AMINOTRANSFERASE 28 U/L (12-78); ALBUMIN 3.5 G/DL (3.4-5.0); ALBUMIN/GLOBULIN RATIO 1.1 (1.1-1.5); ALKALINE PHOSPHATASE 98 IU/L (46-116); ANION GAP 13 (8-16); ASPARTATE AMINO TRANSFERASE 20 U/L (10-37); BILIRUBIN,TOTAL 0.2 MG/DL (0.1-1.0); BLOOD UREA NITROGEN 16 MG/DL (7-18); CALCIUM 8.6 MG/DL (8.5-10.1); CHLORIDE 103 MMOL/L (99-107); ETHANOL < 0.010 GM/DL (0.0-0.010); GLUCOSE 170 MG/DL (70-104); POTASSIUM 3.9 MMOL/L (3.5-5.1); SODIUM 140 MMOL/L (135-145); TOTAL CARBON DIOXIDE 23.9 MMOL/L (24-32); TOTAL PROTEIN 6.6 G/DL (6.4-8.2); eGFR 73 ML/MIN
[2022-01-08] MEDS ORDERED: LORazepam 0.5 MG tablet PO STA (20:19)
[2022-01-08 20:55] VITALS: BP 170/96
== END 2022-01-08 21:03 | disposition home or self-care (01) ==
LOC: ER 19:06
DX: R56.9 Unspecified convulsions (principal); I10 Essential (primary) hypertension; K21.9 Gastro-esophageal reflux disease without esophagitis; M19.90 Unspecified osteoarthritis, unspecified site; Z90.49 Acquired absence of other specified parts of digestive tract; Z98.51 Tubal ligation status; Z88.8 Allergy status to other drugs, medicaments and biological substances; Z79.2 Long term (current) use of antibiotics; Z79.899 Other long term (current) drug therapy; Z91.018 Allergy to other foods
CPT/HCPCS: 36415; 71045; 80053; 80320; 82948; 85025; 99284; J7030

== ENCOUNTER 2022-01-09 18:20 | Emergency (ER) | payer MEDICARE, MEDICAID ==
[~2022-01-09] VITALS: Ht 157.5 cm; Wt 100.0 kg
[2022-01-10] MEDS ORDERED: normal saline 1000ml 1,000 ML IV ONE (02:40)
[2022-01-10] MEDS ORDERED: levetiracetam inj 500 MG in normal saline 100ml IV soln 95 ML IV SCH (02:45)
[2022-01-10] MEDS ORDERED: levetiracetam-NS 1000mg/100ml 100 ML IV ONE (02:50)
[2022-01-10 03:41] LABS: BASOPHILS # (AUTO) 0.1 X10'3 (0-0.2); BASOPHILS % (AUTO) 0.8 % (0-1); EOSINOPHILS # (AUTO) 0.1 X10'3 (0-0.9); MONOCYTES # (AUTO) 0.8 X10'3 (0-0.9)
[2022-01-10 03:42] LABS: HEMOGLOBIN 13.3 g/dl (12.0-16.0); LYMPHOCYTES % (AUTO) 20.1 % (21-51); MEAN CORPUSCULAR HEMOGLOBIN 28.6 PG (27.0-31.0); MEAN CORPUSCULAR HGB CONC 33.1 g/dL (33.0-36.5); MEAN CORPUSCULAR VOLUME 86.2 FL (78-98); MEAN PLATELET VOLUME 7.5 FL (7.4-10.4); MONOCYTES % (AUTO) 7.7 % (2-12); NEUTROPHILS # (AUTO) 7.1 X10'3 (1.8-7.7); NEUTROPHILS % (AUTO) 70.4 % (42-75); PLATELET COUNT 431 X10'3 (140-440); RED BLOOD COUNT 4.64 X10'6 (4.20-5.60); RED CELL DISTRIBUTION WIDTH 16.4 % (11.5-14.5); WHITE BLOOD COUNT 10.1 X10'3 (4.5-11.0)
[2022-01-10 03:50] LABS: CLARITY,URINE SLIGHTLY CLOUDY (Clear); COLOR,URINE YELLOW (Yellow); GLUCOSE, URINE NEGATIVE (Neg); KETONES,URINE NEGATIVE (Neg); LEUKOCYTE ESTERASE ,URINE NEGATIVE (Neg); NITRITES, URINE NEGATIVE (Neg); OCCULT BLOOD,URINE NEGATIVE (Neg); PH,URINE 6.5 (4.8-8.0); PROTEIN,URINE NEGATIVE (Neg); UROBILINOGEN,URINE 0.2 E.U/dL (0.2-1.0)
[2022-01-10 03:56] LABS: UA COLLECTION TYPE CLN CATCH MIDSTREAM; URINE AMPHETAMINE SCREEN NEGATIVE (Neg); URINE BARBITUATE SCREEN NEGATIVE (Neg); URINE BENZODIAZEPINES SCREEN POSITIVE (Neg); URINE CANNABINOID SCREEN NEGATIVE (Neg); URINE COCAINE SCREEN NEGATIVE (Neg); URINE METHADONE SCREEN NEGATIVE (Neg); URINE OPIATE SCREEN NEGATIVE (Neg); URINE PHENCYCLIDINE SCREEN NEGATIVE (Neg)
[2022-01-10 03:58] LABS: BACTERIA,URINE FEW /HPF (Neg); MUCUS STRANDS FEW /LPF (Neg); SQUAMOUS EPITHELIAL CELL,UR MODERATE /LPF (FEW); WBC,URINE 0-4 /HPF (0-4)
[2022-01-10 04:04] LABS: ALANINE AMINOTRANSFERASE 31 U/L (12-78); ALBUMIN 3.9 G/DL (3.4-5.0); ALKALINE PHOSPHATASE 105 IU/L (46-116); ANION GAP 14 (8-16); ASPARTATE AMINO TRANSFERASE 35 U/L (10-37); BILIRUBIN,TOTAL 0.3 MG/DL (0.1-1.0); BLOOD UREA NITROGEN 16 MG/DL (7-18); BUN/CREATININE RATIO 18.6 (6.6-38.0); C-REACTIVE PROTEIN 2.25 MG/DL (0.0-0.5); CALCIUM 9.5 MG/DL (8.5-10.1); CHLORIDE 103 MMOL/L (99-107); CREATININE 0.86 MG/DL (0.40-0.90); ETHANOL < 0.010 GM/DL (0.0-0.010); GLUCOSE 105 MG/DL (70-104); MAGNESIUM 1.9 MG/DL (1.5-2.4); SODIUM 144 MMOL/L (135-145); TOTAL CARBON DIOXIDE 27.3 MMOL/L (24-32); TOTAL PROTEIN 7.7 G/DL (6.4-8.2); eGFR 67 ML/MIN
[2022-01-10] MEDS ORDERED: ketorolac tromethamine 15mg/ml inj. IV ONE (04:30)
[2022-01-10 04:50] VITALS: BP 159/94
== END 2022-01-10 04:53 | disposition home or self-care (01) ==
LOC: ER 18:20
DX: R56.9 Unspecified convulsions (principal); R25.1 Tremor, unspecified; R42 Dizziness and giddiness; R51.9 Headache, unspecified; R53.83 Other fatigue; I10 Essential (primary) hypertension; K21.9 Gastro-esophageal reflux disease without esophagitis; M19.90 Unspecified osteoarthritis, unspecified site; Z90.49 Acquired absence of other specified parts of digestive tract; Z98.51 Tubal ligation status; Z88.8 Allergy status to other drugs, medicaments and biological substances; Z79.899 Other long term (current) drug therapy; Z79.2 Long term (current) use of antibiotics
CPT/HCPCS: 36415; 70450; 80053; 80305; 80320; 81001; 83735; 85025; 86140; 96365; 96375; 99285; J1885; J1953; J7030

== ENCOUNTER 2022-01-29 19:19 | Emergency (ER) | payer MEDICARE, MEDICAID ==
[~2022-01-29] VITALS: Ht 160 cm; Wt 115.9 kg
[2022-01-29 20:33] LABS: BASOPHILS # (AUTO) 0.1 X10'3 (0-0.2); BASOPHILS % (AUTO) 0.8 % (0-1); EOSINOPHILS # (AUTO) 0.1 X10'3 (0-0.9); EOSINOPHILS % (AUTO) 1.5 % (0-6); HEMATOCRIT 36.6 % (35.0-45.0); HEMOGLOBIN 12.4 g/dl (12.0-16.0); LYMPHOCYTES # (AUTO) 1.7 X10'3 (1.1-4.8); LYMPHOCYTES % (AUTO) 20.6 % (21-51); MEAN CORPUSCULAR HEMOGLOBIN 29.1 PG (27.0-31.0); MEAN CORPUSCULAR HGB CONC 33.7 g/dL (33.0-36.5); MEAN CORPUSCULAR VOLUME 86.4 FL (78-98); MEAN PLATELET VOLUME 7.1 FL (7.4-10.4); MONOCYTES # (AUTO) 0.5 X10'3 (0-0.9); NEUTROPHILS # (AUTO) 5.8 X10'3 (1.8-7.7); NEUTROPHILS % (AUTO) 71.1 % (42-75); PLATELET COUNT 306 X10'3 (140-440); RED BLOOD COUNT 4.24 X10'6 (4.20-5.60); RED CELL DISTRIBUTION WIDTH 16.4 % (11.5-14.5); WHITE BLOOD COUNT 8.2 X10'3 (4.5-11.0)
[2022-01-29 20:44] LABS: ALANINE AMINOTRANSFERASE 28 U/L (12-78); ALBUMIN 3.4 G/DL (3.4-5.0); ALBUMIN/GLOBULIN RATIO 0.9 (1.1-1.5); ALKALINE PHOSPHATASE 98 IU/L (46-116); ANION GAP 6 (8-16); ASPARTATE AMINO TRANSFERASE 15 U/L (10-37); BILIRUBIN,TOTAL 0.2 MG/DL (0.1-1.0); BLOOD UREA NITROGEN 22 MG/DL (7-18); BUN/CREATININE RATIO 21.4 (6.6-38.0); CALCIUM 8.6 MG/DL (8.5-10.1); CHLORIDE 103 MMOL/L (99-107); CREATININE 1.03 MG/DL (0.40-0.90); GLUCOSE 94 MG/DL (70-104); POTASSIUM 4.1 MMOL/L (3.5-5.1); SODIUM 137 MMOL/L (135-145); TOTAL CARBON DIOXIDE 27.6 MMOL/L (24-32); TOTAL PROTEIN 7.1 G/DL (6.4-8.2); eGFR 54 ML/MIN
[2022-01-29] MEDS ORDERED: levetiracetam 250mg tablet PO ONE (21:00)
[2022-01-29] MEDS ORDERED: acetaminophen 325mg tablet PO ONE (21:10)
[2022-01-29 21:42] VITALS: BP 181/90
== END 2022-01-29 21:50 | disposition home or self-care (01) ==
LOC: ER 19:19
DX: R56.9 Unspecified convulsions (principal); I10 Essential (primary) hypertension; K21.9 Gastro-esophageal reflux disease without esophagitis; F41.9 Anxiety disorder, unspecified; Z86.69 Personal history of other diseases of the nervous system and sense organs; Z90.49 Acquired absence of other specified parts of digestive tract; Z98.51 Tubal ligation status; Z98.890 Other specified postprocedural states; Z88.5 Allergy status to narcotic agent; Z88.8 Allergy status to other drugs, medicaments and biological substances; Z79.2 Long term (current) use of antibiotics; Z79.899 Other long term (current) drug therapy
CPT/HCPCS: 36415; 80053; 85025; 99284

== ENCOUNTER 2022-02-08 17:09 | Emergency (ER) | payer MEDICARE, MEDICAID ==
[~2022-02-08] VITALS: Ht 157.5 cm; Wt 115.0 kg
--- NOTE | 2022-02-08 18:22 | NUR ---
ASSUMED CARE OF PATIENT, ASSISTED FROM COMMODE TO BED. A+OX4. SKIN IN TACT. OBESE. PA SEEING PATIENT NOW.
[2022-02-08] MEDS ORDERED: acetaminophen 325mg tablet PO ONE (19:40)
--- NOTE | 2022-02-08 20:33 | NUR ---
Assisted to bedside commode
[2022-02-08 20:42] LABS: BASOPHILS # (AUTO) 0.1 X10'3 (0-0.2); BASOPHILS % (AUTO) 0.7 % (0-1); EOSINOPHILS % (AUTO) 0.4 % (0-6); HEMATOCRIT 39.6 % (35.0-45.0); HEMOGLOBIN 13.2 g/dl (12.0-16.0); LYMPHOCYTES # (AUTO) 1.2 X10'3 (1.1-4.8); LYMPHOCYTES % (AUTO) 12.8 % (21-51); MEAN CORPUSCULAR HEMOGLOBIN 28.7 PG (27.0-31.0); MEAN CORPUSCULAR HGB CONC 33.2 g/dL (33.0-36.5); MEAN CORPUSCULAR VOLUME 86.4 FL (78-98); MEAN PLATELET VOLUME 7.1 FL (7.4-10.4); MONOCYTES # (AUTO) 0.5 X10'3 (0-0.9); MONOCYTES % (AUTO) 4.9 % (2-12); NEUTROPHILS # (AUTO) 7.5 X10'3 (1.8-7.7); NEUTROPHILS % (AUTO) 81.2 % (42-75); PLATELET COUNT 315 X10'3 (140-440); RED BLOOD COUNT 4.59 X10'6 (4.20-5.60); RED CELL DISTRIBUTION WIDTH 16.1 % (11.5-14.5); WHITE BLOOD COUNT 9.2 X10'3 (4.5-11.0)
[2022-02-08 20:56] LABS: ALANINE AMINOTRANSFERASE 59 U/L (12-78); ALBUMIN 3.6 G/DL (3.4-5.0); ALBUMIN/GLOBULIN RATIO 0.9 (1.1-1.5); ALKALINE PHOSPHATASE 111 IU/L (46-116); ANION GAP 12 (8-16); ASPARTATE AMINO TRANSFERASE 32 U/L (10-37); BILIRUBIN,TOTAL 0.2 MG/DL (0.1-1.0); BLOOD UREA NITROGEN 19 MG/DL (7-18); BUN/CREATININE RATIO 23.2 (6.6-38.0); CALCIUM 8.9 MG/DL (8.5-10.1); CHLORIDE 102 MMOL/L (99-107); CREATININE 0.82 MG/DL (0.40-0.90); GLUCOSE 111 MG/DL (70-104); SODIUM 140 MMOL/L (135-145); TOTAL CARBON DIOXIDE 25.6 MMOL/L (24-32); TOTAL PROTEIN 7.4 G/DL (6.4-8.2); eGFR 71 ML/MIN
[2022-02-08] MEDS ORDERED: metoprolol tartrate 50mg tablet PO ONE (21:35)
[2022-02-08] MEDS ORDERED: lisinopril 10 MG tablet PO ONE (21:35)
[2022-02-08] MEDS ORDERED: levetiracetam 250mg tablet PO ONE (21:35)
[2022-02-08] MEDS ORDERED: lisinopril 5mg tablet PO ONE (21:40)
[2022-02-08] MEDS ORDERED: metoprolol tartrate 25mg tablet PO ONE (21:40)
--- NOTE | 2022-02-08 21:41 | NUR ---
PATIENT SCHEDULE FOR DISCHARGE [facility] CALLED ETA AFTER 2330 PATIENT AWARE.NIGHT MEDS WILL ORDERED AND GIVEN TO HER.
[2022-02-08 22:07] VITALS: BP 140/85
== END 2022-02-08 22:12 | disposition home or self-care (01) ==
LOC: ER 17:09
DX: G40.909 Epilepsy, unspecified, not intractable, without status epilepticus (principal); R51.9 Headache, unspecified; M25.561 Pain in right knee; I10 Essential (primary) hypertension; K21.9 Gastro-esophageal reflux disease without esophagitis; F41.9 Anxiety disorder, unspecified; Z86.69 Personal history of other diseases of the nervous system and sense organs; Z90.49 Acquired absence of other specified parts of digestive tract; Z98.51 Tubal ligation status; Z98.890 Other specified postprocedural states; Z88.5 Allergy status to narcotic agent; Z88.8 Allergy status to other drugs, medicaments and biological substances; Z91.018 Allergy to other foods; Z79.2 Long term (current) use of antibiotics; Z79.899 Other long term (current) drug therapy
CPT/HCPCS: 36415; 80053; 85025; 99284

== ENCOUNTER 2022-02-14 20:24 | Emergency (ER) | payer MEDICARE, MEDICAID ==
[~2022-02-14] VITALS: Ht 160 cm; Wt 118.2 kg
[2022-02-14 21:59] LABS: BASOPHILS # (AUTO) 0.1 X10'3 (0-0.2); BASOPHILS % (AUTO) 0.8 % (0-1); EOSINOPHILS # (AUTO) 0.1 X10'3 (0-0.9); EOSINOPHILS % (AUTO) 1.6 % (0-6); HEMATOCRIT 36.3 % (35.0-45.0); HEMOGLOBIN 12.2 g/dl (12.0-16.0); LYMPHOCYTES # (AUTO) 1.6 X10'3 (1.1-4.8); LYMPHOCYTES % (AUTO) 17.8 % (21-51); MEAN CORPUSCULAR HEMOGLOBIN 29.1 PG (27.0-31.0); MEAN CORPUSCULAR HGB CONC 33.7 g/dL (33.0-36.5); MEAN CORPUSCULAR VOLUME 86.4 FL (78-98); MONOCYTES # (AUTO) 0.6 X10'3 (0-0.9); MONOCYTES % (AUTO) 6.8 % (2-12); NEUTROPHILS # (AUTO) 6.7 X10'3 (1.8-7.7); PLATELET COUNT 356 X10'3 (140-440); RED CELL DISTRIBUTION WIDTH 15.6 % (11.5-14.5); WHITE BLOOD COUNT 9.2 X10'3 (4.5-11.0)
[2022-02-14 22:13] LABS: ALANINE AMINOTRANSFERASE 32 U/L (12-78); ALBUMIN 3.4 G/DL (3.4-5.0); ALBUMIN/GLOBULIN RATIO 0.9 (1.1-1.5); ALKALINE PHOSPHATASE 98 IU/L (46-116); ANION GAP 9 (8-16); ASPARTATE AMINO TRANSFERASE 32 U/L (10-37); BILIRUBIN,TOTAL 0.2 MG/DL (0.1-1.0); BLOOD UREA NITROGEN 18 MG/DL (7-18); CALCIUM 8.8 MG/DL (8.5-10.1); CHLORIDE 99 MMOL/L (99-107); CREATININE 0.82 MG/DL (0.40-0.90); GLUCOSE 96 MG/DL (70-104); SODIUM 135 MMOL/L (135-145); TOTAL CARBON DIOXIDE 27.5 MMOL/L (24-32); eGFR 71 ML/MIN
[2022-02-14 23:36] VITALS: BP 168/94
== END 2022-02-14 23:42 | disposition home or self-care (01) ==
LOC: ER 20:25
DX: R56.9 Unspecified convulsions (principal); R32 Unspecified urinary incontinence; G43.909 Migraine, unspecified, not intractable, without status migrainosus; I10 Essential (primary) hypertension; K21.9 Gastro-esophageal reflux disease without esophagitis; F41.9 Anxiety disorder, unspecified; Z90.49 Acquired absence of other specified parts of digestive tract; Z98.51 Tubal ligation status; Z98.890 Other specified postprocedural states; Z88.8 Allergy status to other drugs, medicaments and biological substances; Z88.5 Allergy status to narcotic agent; Z79.2 Long term (current) use of antibiotics; Z79.899 Other long term (current) drug therapy
CPT/HCPCS: 36415; 80053; 85025; 99283

== ENCOUNTER 2022-02-22 18:16 | Emergency (ER) | payer MEDICARE, MEDICAID ==
[~2022-02-22] VITALS: Ht 160 cm; Wt 118.2 kg
[2022-02-22] MEDS ORDERED: LORazepam 2 mg/ml vial IM ONE (23:50)
[2022-02-23 00:37] VITALS: BP 145/75
== END 2022-02-23 00:48 | disposition home or self-care (01) ==
LOC: ER 18:17
DX: G40.909 Epilepsy, unspecified, not intractable, without status epilepticus (principal); I10 Essential (primary) hypertension; K21.9 Gastro-esophageal reflux disease without esophagitis; F41.9 Anxiety disorder, unspecified; Z86.69 Personal history of other diseases of the nervous system and sense organs; Z90.49 Acquired absence of other specified parts of digestive tract; Z98.51 Tubal ligation status; Z98.890 Other specified postprocedural states; Z88.8 Allergy status to other drugs, medicaments and biological substances; Z88.5 Allergy status to narcotic agent; Z79.2 Long term (current) use of antibiotics; Z79.899 Other long term (current) drug therapy
CPT/HCPCS: 96372; 99284; J2060

== ENCOUNTER 2022-03-02 19:22 | Emergency (ER) | payer MEDICARE, MEDICAID ==
[~2022-03-02] VITALS: Ht 160 cm; Wt 118.0 kg
[2022-03-03 01:23] LABS: BASOPHILS # (AUTO) 0.1 X10'3 (0-0.2); EOSINOPHILS # (AUTO) 0.2 X10'3 (0-0.9); EOSINOPHILS % (AUTO) 2.6 % (0-6); HEMATOCRIT 39.5 % (35.0-45.0); HEMOGLOBIN 13.1 g/dl (12.0-16.0); LYMPHOCYTES # (AUTO) 2.1 X10'3 (1.1-4.8); LYMPHOCYTES % (AUTO) 25.5 % (21-51); MEAN CORPUSCULAR HEMOGLOBIN 29.3 PG (27.0-31.0); MEAN CORPUSCULAR HGB CONC 33.2 g/dL (33.0-36.5); MEAN CORPUSCULAR VOLUME 88.1 FL (78-98); MEAN PLATELET VOLUME 7.2 FL (7.4-10.4); MONOCYTES # (AUTO) 0.5 X10'3 (0-0.9); MONOCYTES % (AUTO) 5.7 % (2-12); NEUTROPHILS # (AUTO) 5.4 X10'3 (1.8-7.7); NEUTROPHILS % (AUTO) 65.2 % (42-75); PLATELET COUNT 317 X10'3 (140-440); RED BLOOD COUNT 4.48 X10'6 (4.20-5.60); RED CELL DISTRIBUTION WIDTH 15.8 % (11.5-14.5); WHITE BLOOD COUNT 8.3 X10'3 (4.5-11.0)
[2022-03-03 01:38] LABS: CLARITY,URINE CLEAR (Clear); COLOR,URINE YELLOW (Yellow); GLUCOSE, URINE NEGATIVE (Neg); KETONES,URINE NEGATIVE (Neg); LEUKOCYTE ESTERASE ,URINE TRACE (Neg); NITRITES, URINE NEGATIVE (Neg); OCCULT BLOOD,URINE NEGATIVE (Neg); PH,URINE 6.5 (4.8-8.0); PROTEIN,URINE NEGATIVE (Neg); UROBILINOGEN,URINE 0.2 E.U/dL (0.2-1.0)
[2022-03-03 01:58] VITALS: BP 158/84
[2022-03-03 02:29] LABS: ALANINE AMINOTRANSFERASE 32 U/L (12-78); ALBUMIN 3.4 G/DL (3.4-5.0); ALBUMIN/GLOBULIN RATIO 0.9 (1.1-1.5); ALKALINE PHOSPHATASE 89 IU/L (46-116); ANION GAP 9 (8-16); ASPARTATE AMINO TRANSFERASE 20 U/L (10-37); BILIRUBIN,TOTAL 0.3 MG/DL (0.1-1.0); BLOOD UREA NITROGEN 16 MG/DL (7-18); BUN/CREATININE RATIO 20.5 (6.6-38.0); CALCIUM 8.5 MG/DL (8.5-10.1); CHLORIDE 101 MMOL/L (99-107); CREATININE 0.78 MG/DL (0.40-0.90); GLUCOSE 96 MG/DL (70-104); POTASSIUM 3.9 MMOL/L (3.5-5.1); SODIUM 138 MMOL/L (135-145); TOTAL CARBON DIOXIDE 28.5 MMOL/L (24-32); TOTAL PROTEIN 7.2 G/DL (6.4-8.2); eGFR 75 ML/MIN
[2022-03-03 02:30] LABS: UA COLLECTION TYPE NON-SPECIFIED
[2022-03-03 02:31] LABS: RBC,URINE 0-2 /HPF (0-2)
[2022-03-03 02:32] LABS: BACTERIA,URINE FEW /HPF (Neg); MUCUS STRANDS FEW /LPF (Neg); SQUAMOUS EPITHELIAL CELL,UR FEW /LPF (FEW); WBC CLUMPS,URINE FEW /HPF (NEGATIVE)
[2022-03-03] MEDS ORDERED: NITR100C6 PO (03:13)
[2022-03-03] MEDS ORDERED: nitrofuran monohydrate/nitrofuran macrocrysal 100 MG (MacroBID) capsule PO ONE (03:15)
[2022-03-03] MEDS ORDERED: LORazepam 0.5 MG tablet PO STA (03:42)
== END 2022-03-03 03:58 | disposition home or self-care (01) ==
LOC: ER 19:22
DX: R56.9 Unspecified convulsions (principal); R51.9 Headache, unspecified; I10 Essential (primary) hypertension; K21.9 Gastro-esophageal reflux disease without esophagitis; F41.9 Anxiety disorder, unspecified; Z86.69 Personal history of other diseases of the nervous system and sense organs; Z90.49 Acquired absence of other specified parts of digestive tract; Z98.51 Tubal ligation status; Z98.890 Other specified postprocedural states; Z88.8 Allergy status to other drugs, medicaments and biological substances; Z88.5 Allergy status to narcotic agent; Z79.899 Other long term (current) drug therapy
CPT/HCPCS: 36415; 71045; 80053; 81001; 85025; 93005; 99285

== ENCOUNTER 2022-03-21 20:57 | Emergency (ER) | payer OTHER, MEDICAID ==
[~2022-03-21] VITALS: Ht 160 cm; Wt 79.0 kg
[~2022-03-21 20:57] MED LIST changes: -CEPH-585 PO; +NITR100C6 PO
[2022-03-21] MEDS ORDERED: acetaminophen 325mg tablet PO ONE (23:20)
[2022-03-22 00:23] VITALS: BP 144/76
== END 2022-03-22 00:31 | disposition home or self-care (01) ==
LOC: ER 20:58
DX: R51.9 Headache, unspecified (principal); I10 Essential (primary) hypertension; K21.9 Gastro-esophageal reflux disease without esophagitis; F41.9 Anxiety disorder, unspecified; Z91.018 Allergy to other foods; Z88.8 Allergy status to other drugs, medicaments and biological substances; Z88.5 Allergy status to narcotic agent; W19.XXXA Unspecified fall, initial encounter; Y93.89 Activity, other specified; Y92.89 Other specified places as the place of occurrence of the external cause; Y99.8 Other external cause status; Z79.899 Other long term (current) drug therapy
CPT/HCPCS: 70450; 93005; 99284

== ENCOUNTER 2022-03-24 18:34 | Emergency (ER) | payer MEDICARE, MEDICAID ==
[~2022-03-24] VITALS: Ht 165.1 cm; Wt 118.2 kg
[2022-03-24] MEDS ORDERED: LORazepam 1 MG tablet PO ONE (20:00)
--- NOTE | 2022-03-24 20:24 | NUR ---
PLEASE CALL WITH UPDATES WHEN ABLE ([phone])
[2022-03-24 20:30] LABS: BASOPHILS # (AUTO) 0.1 X10'3 (0-0.2); BASOPHILS % (AUTO) 0.8 % (0-1); EOSINOPHILS # (AUTO) 0.2 X10'3 (0-0.9); HEMOGLOBIN 12.8 g/dl (12.0-16.0); LYMPHOCYTES # (AUTO) 1.2 X10'3 (1.1-4.8); LYMPHOCYTES % (AUTO) 12.1 % (21-51); MEAN CORPUSCULAR HEMOGLOBIN 28.4 PG (27.0-31.0); MEAN CORPUSCULAR HGB CONC 32.9 g/dL (33.0-36.5); MEAN CORPUSCULAR VOLUME 86.4 FL (78-98); MEAN PLATELET VOLUME 7.2 FL (7.4-10.4); MONOCYTES # (AUTO) 0.7 X10'3 (0-0.9); MONOCYTES % (AUTO) 6.5 % (2-12); NEUTROPHILS # (AUTO) 7.9 X10'3 (1.8-7.7); NEUTROPHILS % (AUTO) 78.6 % (42-75); PLATELET COUNT 339 X10'3 (140-440); RED BLOOD COUNT 4.52 X10'6 (4.20-5.60); RED CELL DISTRIBUTION WIDTH 15.3 % (11.5-14.5); WHITE BLOOD COUNT 10.1 X10'3 (4.5-11.0)
[2022-03-24 20:47] LABS: ALANINE AMINOTRANSFERASE 31 U/L (12-78); ALBUMIN 3.5 G/DL (3.4-5.0); ALBUMIN/GLOBULIN RATIO 0.9 (1.1-1.5); ALKALINE PHOSPHATASE 91 IU/L (46-116); ANION GAP 9 (8-16); ASPARTATE AMINO TRANSFERASE 21 U/L (10-37); BILIRUBIN,TOTAL 0.3 MG/DL (0.1-1.0); BLOOD UREA NITROGEN 19 MG/DL (7-18); BUN/CREATININE RATIO 17.3 (6.6-38.0); CALCIUM 8.9 MG/DL (8.5-10.1); CHLORIDE 101 MMOL/L (99-107); GLUCOSE 106 MG/DL (70-104); POTASSIUM 3.8 MMOL/L (3.5-5.1); SODIUM 137 MMOL/L (135-145); TOTAL PROTEIN 7.4 G/DL (6.4-8.2); eGFR 50 ML/MIN
--- NOTE | 2022-03-24 21:12 | NUR ---
CALLED [facility] FOR PT TO GET HOME, ETA 1-2 HRS
[2022-03-24] MEDS ORDERED: ketorolac trometh. 30mg/ml inj. IM ONE (21:15)
[2022-03-24 21:35] VITALS: BP 157/86
== END 2022-03-24 21:38 | disposition home or self-care (01) ==
LOC: ER 18:35
DX: R56.9 Unspecified convulsions (principal); I10 Essential (primary) hypertension; K21.9 Gastro-esophageal reflux disease without esophagitis; F41.9 Anxiety disorder, unspecified; Z91.018 Allergy to other foods; Z88.8 Allergy status to other drugs, medicaments and biological substances; Z88.5 Allergy status to narcotic agent; Z79.899 Other long term (current) drug therapy
CPT/HCPCS: 80053; 85025; 96372; 99284; J1885

== ENCOUNTER 2022-04-09 20:09 | Emergency (ER) | payer MEDICARE, MEDICAID ==
[~2022-04-09] VITALS: Ht 160 cm; Wt 100.0 kg
[2022-04-09] MEDS ORDERED: LORazepam 1 MG tablet PO ONE (20:15)
[2022-04-09 20:54] LABS: ALANINE AMINOTRANSFERASE 25 U/L (12-78); ALBUMIN 2.9 G/DL (3.4-5.0); ALBUMIN/GLOBULIN RATIO 0.7 (1.1-1.5); ALKALINE PHOSPHATASE 73 IU/L (46-116); ANION GAP 9 (8-16); ASPARTATE AMINO TRANSFERASE 20 U/L (10-37); BILIRUBIN,TOTAL 0.1 MG/DL (0.1-1.0); BLOOD UREA NITROGEN 16 MG/DL (7-18); BUN/CREATININE RATIO 24.6 (6.6-38.0); CALCIUM 8.9 MG/DL (8.5-10.1); CHLORIDE 101 MMOL/L (99-107); CREATININE 0.65 MG/DL (0.40-0.90); GLUCOSE 104 MG/DL (70-104); POTASSIUM 3.8 MMOL/L (3.5-5.1); SODIUM 136 MMOL/L (135-145); TOTAL CARBON DIOXIDE 25.6 MMOL/L (24-32); TOTAL PROTEIN 7.2 G/DL (6.4-8.2); eGFR > 90 ML/MIN
--- NOTE | 2022-04-09 21:31 | NUR ---
[facility] HOME HAS BEEN CALLED FOR PT. PT CONITNUES TO BE A&OX4 WITH NO SEIZURE ACTIVITY AND STABLE VITALS.
[2022-04-09 21:53] VITALS: BP 136/78
== END 2022-04-09 21:58 | disposition home or self-care (01) ==
LOC: ER 20:10
DX: R56.9 Unspecified convulsions (principal); I10 Essential (primary) hypertension; K21.9 Gastro-esophageal reflux disease without esophagitis; M19.90 Unspecified osteoarthritis, unspecified site; Z90.49 Acquired absence of other specified parts of digestive tract; Z98.51 Tubal ligation status; Z79.899 Other long term (current) drug therapy; Z88.8 Allergy status to other drugs, medicaments and biological substances; Z91.018 Allergy to other foods
CPT/HCPCS: 36415; 80053; 99284

== ENCOUNTER 2022-04-11 16:27 | Emergency (ER) | payer MEDICARE, MEDICAID ==
[~2022-04-11] VITALS: Ht 160 cm; Wt 110.0 kg
[2022-04-11] MEDS ORDERED: LORazepam 1 MG tablet PO ONE (16:35)
[2022-04-11] MEDS ORDERED: propranolol 10mg tablet PO ONE (16:55)
[2022-04-11 17:25] VITALS: BP 160/97
--- NOTE | 2022-04-11 17:47 | NUR ---
PATIENT IS REQUESTING PAIN MEDICATION FOR CHRONIC PAIN IN BODY.
--- NOTE | 2022-04-11 18:06 | NUR ---
EXPLAINED TO PATIENT THAT SHE WILL BE PAYING FOR HER TAXI RIDE HOME AFTER PAYING FOR TRANSPORT MULTIPLE TIMES BEFOREHAND.
== END 2022-04-11 18:27 | disposition home or self-care (01) ==
LOC: ER 16:27
DX: G40.909 Epilepsy, unspecified, not intractable, without status epilepticus (principal); I10 Essential (primary) hypertension; K21.9 Gastro-esophageal reflux disease without esophagitis; F41.9 Anxiety disorder, unspecified; Z90.49 Acquired absence of other specified parts of digestive tract; Z86.69 Personal history of other diseases of the nervous system and sense organs; Z98.51 Tubal ligation status; Z98.890 Other specified postprocedural states; Z88.5 Allergy status to narcotic agent; Z88.8 Allergy status to other drugs, medicaments and biological substances; Z79.899 Other long term (current) drug therapy
CPT/HCPCS: 99284

== ENCOUNTER 2022-04-21 18:25 | Emergency (ER) | payer MEDICARE, MEDICAID ==
[~2022-04-21] VITALS: Ht 160 cm; Wt 110.0 kg
[2022-04-21 18:59] LABS: BASOPHILS # (AUTO) 0.2 X10'3 (0-0.2); BASOPHILS % (AUTO) 1.8 % (0-1); EOSINOPHILS # (AUTO) 0.4 X10'3 (0-0.9); EOSINOPHILS % (AUTO) 3.3 % (0-6); HEMATOCRIT 33.7 % (35.0-45.0); HEMOGLOBIN 11.1 g/dl (12.0-16.0); LYMPHOCYTES # (AUTO) 1.8 X10'3 (1.1-4.8); LYMPHOCYTES % (AUTO) 15.4 % (21-51); MEAN CORPUSCULAR HGB CONC 33.1 g/dL (33.0-36.5); MEAN CORPUSCULAR VOLUME 84.7 FL (78-98); MEAN PLATELET VOLUME 6.8 FL (7.4-10.4); MONOCYTES # (AUTO) 0.6 X10'3 (0-0.9); MONOCYTES % (AUTO) 5.6 % (2-12); NEUTROPHILS # (AUTO) 8.5 X10'3 (1.8-7.7); NEUTROPHILS % (AUTO) 73.9 % (42-75); PLATELET COUNT 468 X10'3 (140-440); RED BLOOD COUNT 3.97 X10'6 (4.20-5.60); RED CELL DISTRIBUTION WIDTH 14.5 % (11.5-14.5); WHITE BLOOD COUNT 11.5 X10'3 (4.5-11.0)
[2022-04-21 19:10] LABS: ALANINE AMINOTRANSFERASE 24 U/L (12-78); ALBUMIN/GLOBULIN RATIO 0.7 (1.1-1.5); ALKALINE PHOSPHATASE 75 IU/L (46-116); ANION GAP 8 (8-16); ASPARTATE AMINO TRANSFERASE 17 U/L (10-37); BILIRUBIN,TOTAL 0.2 MG/DL (0.1-1.0); BLOOD UREA NITROGEN 19 MG/DL (7-18); BUN/CREATININE RATIO 23.5 (6.6-38.0); CALCIUM 8.6 MG/DL (8.5-10.1); CHLORIDE 102 MMOL/L (99-107); CREATININE 0.81 MG/DL (0.40-0.90); GLUCOSE 137 MG/DL (70-104); POTASSIUM 3.7 MMOL/L (3.5-5.1); SODIUM 136 MMOL/L (135-145); TOTAL CARBON DIOXIDE 26.2 MMOL/L (24-32); TOTAL PROTEIN 7.1 G/DL (6.4-8.2); eGFR 72 ML/MIN
[2022-04-21] MEDS ORDERED: normal saline 1000ml 1,000 ML IV ONE (19:20)
[2022-04-21] MEDS ORDERED: morphine 4 MG/ML inj SYRINge IV ONE ×2 (19:20→21:10)
[2022-04-21] MEDS ORDERED: ondansetron/PF 4mg/2ml inj IV ONE (19:20)
[2022-04-21 20:26] LABS: COLOR,URINE YELLOW (Yellow); GLUCOSE, URINE NEGATIVE (Neg); KETONES,URINE NEGATIVE (Neg); LEUKOCYTE ESTERASE ,URINE TRACE (Neg); NITRITES, URINE NEGATIVE (Neg); OCCULT BLOOD,URINE NEGATIVE (Neg); PROTEIN,URINE NEGATIVE (Neg); UROBILINOGEN,URINE 0.2 E.U/dL (0.2-1.0)
[2022-04-21 20:34] LABS: CLARITY,URINE SLIGHTLY CLOUDY (Clear); UA COLLECTION TYPE CLN CATCH MIDSTREAM
[2022-04-21 20:35] LABS: BACTERIA,URINE FEW /HPF (Neg); RBC,URINE 0-2 /HPF (0-2); SQUAMOUS EPITHELIAL CELL,UR MODERATE /LPF (FEW); WBC,URINE 20-30 /HPF (0-4)
[2022-04-21] MEDS ORDERED: nitrofuran monohydrate/nitrofuran macrocrysal 100 MG (MacroBID) capsule PO ONE (21:25)
[2022-04-21] MEDS ORDERED: NITR100C6 PO (21:31)
[2022-04-21 21:54] VITALS: BP 135/75
== END 2022-04-21 21:58 | disposition home or self-care (01) ==
LOC: ER 18:25
DX: G40.909 Epilepsy, unspecified, not intractable, without status epilepticus (principal); N39.0 Urinary tract infection, site not specified; R20.8 Other disturbances of skin sensation; I10 Essential (primary) hypertension; K21.9 Gastro-esophageal reflux disease without esophagitis; M19.90 Unspecified osteoarthritis, unspecified site; Z90.49 Acquired absence of other specified parts of digestive tract; Z98.51 Tubal ligation status; Z88.8 Allergy status to other drugs, medicaments and biological substances; Z91.018 Allergy to other foods; Z79.899 Other long term (current) drug therapy
CPT/HCPCS: 36415; 71045; 80053; 81001; 85025; 93005; 96361; 96374; 96375; 96376; 99285; J2270; J2405; J7030

== ENCOUNTER 2022-05-09 14:04 | Emergency (ER) | payer MEDICARE, MEDICAID ==
[~2022-05-09] VITALS: Ht 160 cm; Wt 119.1 kg
[2022-05-09 14:16] VITALS: BP 197/95
== END 2022-05-09 19:55 | disposition left against medical advice (07) ==
LOC: ER 14:05
DX: R56.9 Unspecified convulsions (principal); Z53.21 Procedure and treatment not carried out due to patient leaving prior to being seen by health care provider

== ENCOUNTER 2022-05-14 19:32 | Emergency (ER) | payer MEDICARE, MEDICAID ==
[~2022-05-14] VITALS: Ht 160 cm; Wt 119.0 kg
[2022-05-14 21:44] VITALS: BP 189/86
[2022-05-14] MEDS ORDERED: HYDROcodone/acetaminophen 10/325mg tab PO ONE (21:50)
[2022-05-14] MEDS ORDERED: diazepam 5mg tablet PO ONE (21:50)
== END 2022-05-14 22:30 | disposition home or self-care (01) ==
LOC: ER 19:33
DX: R56.9 Unspecified convulsions (principal); R07.89 Other chest pain; R51.9 Headache, unspecified; I10 Essential (primary) hypertension; K21.9 Gastro-esophageal reflux disease without esophagitis; F41.9 Anxiety disorder, unspecified; Z86.69 Personal history of other diseases of the nervous system and sense organs; Z90.49 Acquired absence of other specified parts of digestive tract; Z98.51 Tubal ligation status; Z98.890 Other specified postprocedural states; Z88.8 Allergy status to other drugs, medicaments and biological substances; Z88.5 Allergy status to narcotic agent; Z79.899 Other long term (current) drug therapy
CPT/HCPCS: 99284

== ENCOUNTER 2022-06-12 10:38 | Emergency (ER) | payer MEDICARE, MEDICAID ==
[~2022-06-12] VITALS: Ht 160 cm; Wt 119.0 kg
[2022-06-12 12:11] LABS: BASOPHILS # (AUTO) 0.1 X10'3 (0-0.2); EOSINOPHILS # (AUTO) 0.2 X10'3 (0-0.9); EOSINOPHILS % (AUTO) 3.4 % (0-6); HEMATOCRIT 35.7 % (35.0-45.0); HEMOGLOBIN 11.7 g/dl (12.0-16.0); LYMPHOCYTES # (AUTO) 1.3 X10'3 (1.1-4.8); LYMPHOCYTES % (AUTO) 21.5 % (21-51); MEAN CORPUSCULAR HEMOGLOBIN 28.2 PG (27.0-31.0); MEAN CORPUSCULAR HGB CONC 32.8 g/dL (33.0-36.5); MEAN CORPUSCULAR VOLUME 85.9 FL (78-98); MEAN PLATELET VOLUME 7.4 FL (7.4-10.4); MONOCYTES # (AUTO) 0.5 X10'3 (0-0.9); MONOCYTES % (AUTO) 7.4 % (2-12); NEUTROPHILS # (AUTO) 4.1 X10'3 (1.8-7.7); NEUTROPHILS % (AUTO) 66.7 % (42-75); PLATELET COUNT 317 X10'3 (140-440); RED BLOOD COUNT 4.16 X10'6 (4.20-5.60); RED CELL DISTRIBUTION WIDTH 16.7 % (11.5-14.5); WHITE BLOOD COUNT 6.1 X10'3 (4.5-11.0)
[2022-06-12 12:23] LABS: ALANINE AMINOTRANSFERASE 25 U/L (12-78); ALBUMIN 3.1 G/DL (3.4-5.0); ALBUMIN/GLOBULIN RATIO 0.8 (1.1-1.5); ALKALINE PHOSPHATASE 84 IU/L (46-116); ANION GAP 7 (8-16); ASPARTATE AMINO TRANSFERASE 18 U/L (10-37); BILIRUBIN,TOTAL 0.2 MG/DL (0.1-1.0); BLOOD UREA NITROGEN 17 MG/DL (7-18); BUN/CREATININE RATIO 23.3 (6.6-38.0); CALCIUM 8.6 MG/DL (8.5-10.1); CHLORIDE 109 MMOL/L (99-107); CREATININE 0.73 MG/DL (0.40-0.90); GLUCOSE 82 MG/DL (70-104); POTASSIUM 4.2 MMOL/L (3.5-5.1); SODIUM 143 MMOL/L (135-145); TOTAL CARBON DIOXIDE 26.7 MMOL/L (24-32); TOTAL PROTEIN 7.1 G/DL (6.4-8.2); eGFR 81 ML/MIN
[2022-06-12 14:13] VITALS: BP 165/84
[2022-06-12 17:45] LABS: URINE AMPHETAMINE SCREEN NEGATIVE (Neg); URINE BARBITUATE SCREEN NEGATIVE (Neg); URINE BENZODIAZEPINES SCREEN POSITIVE (Neg); URINE CANNABINOID SCREEN NEGATIVE (Neg); URINE COCAINE SCREEN NEGATIVE (Neg); URINE METHADONE SCREEN NEGATIVE (Neg); URINE OPIATE SCREEN NEGATIVE (Neg); URINE PHENCYCLIDINE SCREEN NEGATIVE (Neg)
[2022-06-12 17:47] LABS: CLARITY,URINE CLEAR (Clear); COLOR,URINE YELLOW (Yellow); GLUCOSE, URINE NEGATIVE (Neg); KETONES,URINE NEGATIVE (Neg); LEUKOCYTE ESTERASE ,URINE NEGATIVE (Neg); NITRITES, URINE NEGATIVE (Neg); OCCULT BLOOD,URINE NEGATIVE (Neg); PH,URINE 5.5 (4.8-8.0); PROTEIN,URINE NEGATIVE (Neg); UA COLLECTION TYPE CLN CATCH MIDSTREAM; UROBILINOGEN,URINE 0.2 E.U/dL (0.2-1.0)
[2022-06-12] MEDS ORDERED: ACET650T58 PO (20:04)
== END 2022-06-12 20:34 | disposition home or self-care (01) ==
LOC: ER 10:38
DX: S62.636A Displaced fracture of distal phalanx of right little finger, initial encounter for closed fracture (principal); M84.375A Stress fracture, left foot, initial encounter for fracture; I10 Essential (primary) hypertension; K21.9 Gastro-esophageal reflux disease without esophagitis; F41.9 Anxiety disorder, unspecified; Z91.018 Allergy to other foods; Z88.5 Allergy status to narcotic agent; Z79.899 Other long term (current) drug therapy; Z79.82 Long term (current) use of aspirin; Z79.1 Long term (current) use of non-steroidal anti-inflammatories (NSAID); Z79.2 Long term (current) use of antibiotics; W18.39XA Other fall on same level, initial encounter; Y93.89 Activity, other specified; Y92.89 Other specified places as the place of occurrence of the external cause; Y99.8 Other external cause status
CPT/HCPCS: 29130; 36415; 70450; 71045; 72125; 73000; 73120; 73560; 73630; 80053; 80305; 81003; 84484; 85025; 93005; 99285; L4360

== ENCOUNTER 2022-06-18 15:30 | Emergency (ER) | payer MEDICARE, MEDICAID ==
[~2022-06-18] VITALS: Ht 160 cm; Wt 120.0 kg
[~2022-06-18 15:30] MED LIST changes: +ACET650T58 PO
--- NOTE | 2022-06-18 15:49 | NUR ---
seizure pads placed on bed
[2022-06-18] MEDS ORDERED: LORazepam 2 mg/ml vial IV ONE (16:10)
[2022-06-18] MEDS ORDERED: levetiracetam inj 1,000 MG in normal saline 100ml IV soln 90 ML IV ONE (16:15)
[2022-06-18] MEDS ORDERED: levetiracetam inj 1,000 MG in normal saline 100ml IV soln 100 ML IV ONE (16:15)
[2022-06-18] MEDS ORDERED: ketorolac trometh inj. 60 MG/2 ML VIAL IM ONE (17:10)
--- NOTE | 2022-06-18 17:31 | NUR ---
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
[2022-06-18 18:11] VITALS: BP 132/77
[2022-06-18] MEDS ORDERED: levetiracetam inj 1,000 MG in normal saline 100ml IV soln 90 ML IV SCH (20:00)
== END 2022-06-18 18:12 | disposition home or self-care (01) ==
LOC: ER 15:31
DX: G40.909 Epilepsy, unspecified, not intractable, without status epilepticus (principal); I10 Essential (primary) hypertension; K21.9 Gastro-esophageal reflux disease without esophagitis; F41.9 Anxiety disorder, unspecified; Z79.899 Other long term (current) drug therapy; Z88.8 Allergy status to other drugs, medicaments and biological substances; Z88.5 Allergy status to narcotic agent; Z91.018 Allergy to other foods
CPT/HCPCS: 96365; 96366; 96372; 96375; 99284; J1885; J1953; J2060; J3490

== ENCOUNTER 2022-07-03 15:33 | Emergency (ER) | payer MEDICARE, MEDICAID ==
[~2022-07-03] VITALS: Ht 167.6 cm; Wt 127.3 kg
[~2022-07-03 15:33] MED LIST changes: -ACET650T58 PO
[2022-07-03 15:39] VITALS: BP 197/90
== END 2022-07-03 17:22 | disposition home or self-care (01) ==
LOC: ER 15:34
DX: R56.9 Unspecified convulsions (principal); I10 Essential (primary) hypertension; K21.9 Gastro-esophageal reflux disease without esophagitis; F41.9 Anxiety disorder, unspecified; Z86.69 Personal history of other diseases of the nervous system and sense organs; Z90.49 Acquired absence of other specified parts of digestive tract; Z98.51 Tubal ligation status; Z98.890 Other specified postprocedural states; Z88.8 Allergy status to other drugs, medicaments and biological substances; Z88.5 Allergy status to narcotic agent; Z79.899 Other long term (current) drug therapy
CPT/HCPCS: 99283

== ENCOUNTER 2022-07-10 18:41 | Emergency (ER) | payer MEDICARE, MEDICAID ==
[~2022-07-10] VITALS: Ht 160 cm; Wt 119.0 kg
--- NOTE | 2022-07-10 19:11 | NUR ---
pt is 61 yo female well known to ER, pt stated she has a seizures twice a week, compliant with taking meds as prescribed, pt said she came to ER because seizure lasted approx 9 minutes and she was not able to use voltoco nasal spray to prevent sz. Pt is GCS 15, alert and oriented, but "I don't still do not feel right", no trauma to head/tongue. Waiting to be evaluated by provider, seizures pads in place
[2022-07-10 21:09] VITALS: BP 141/77
[2022-07-10] MEDS ORDERED: LORazepam 1 MG tablet PO ONE (21:15)
[2022-07-10 21:52] LABS: CLARITY,URINE CLEAR (Clear); COLOR,URINE YELLOW (Yellow); GLUCOSE, URINE NEGATIVE (Neg); KETONES,URINE NEGATIVE (Neg); LEUKOCYTE ESTERASE ,URINE NEGATIVE (Neg); NITRITES, URINE NEGATIVE (Neg); OCCULT BLOOD,URINE NEGATIVE (Neg); PROTEIN,URINE NEGATIVE (Neg); UROBILINOGEN,URINE 0.2 E.U/dL (0.2-1.0)
[2022-07-10 21:56] LABS: BASOPHILS % (AUTO) 0.4 % (0-1); EOSINOPHILS # (AUTO) 0.1 X10'3 (0-0.9); EOSINOPHILS % (AUTO) 0.6 % (0-6); HEMATOCRIT 33.9 % (35.0-45.0); HEMOGLOBIN 11.4 g/dl (12.0-16.0); LYMPHOCYTES # (AUTO) 1.4 X10'3 (1.1-4.8); MEAN CORPUSCULAR HEMOGLOBIN 28.5 PG (27.0-31.0); MEAN CORPUSCULAR HGB CONC 33.7 g/dL (33.0-36.5); MEAN CORPUSCULAR VOLUME 84.8 FL (78-98); MEAN PLATELET VOLUME 7.2 FL (7.4-10.4); MONOCYTES # (AUTO) 0.4 X10'3 (0-0.9); MONOCYTES % (AUTO) 4.3 % (2-12); NEUTROPHILS # (AUTO) 8.1 X10'3 (1.8-7.7); NEUTROPHILS % (AUTO) 80.7 % (42-75); PLATELET COUNT 372 X10'3 (140-440); RED CELL DISTRIBUTION WIDTH 16.7 % (11.5-14.5); WHITE BLOOD COUNT 10.1 X10'3 (4.5-11.0)
[2022-07-10 21:59] LABS: ALANINE AMINOTRANSFERASE 21 U/L (12-78); ALBUMIN 3.1 G/DL (3.4-5.0); ALBUMIN/GLOBULIN RATIO 0.8 (1.1-1.5); ALKALINE PHOSPHATASE 86 IU/L (46-116); ANION GAP 8 (8-16); ASPARTATE AMINO TRANSFERASE 17 U/L (10-37); BILIRUBIN,TOTAL 0.2 MG/DL (0.1-1.0); BLOOD UREA NITROGEN 17 MG/DL (7-18); BUN/CREATININE RATIO 22.4 (6.6-38.0); CALCIUM 8.6 MG/DL (8.5-10.1); CHLORIDE 104 MMOL/L (99-107); CREATININE 0.76 MG/DL (0.40-0.90); GLUCOSE 107 MG/DL (70-104); POTASSIUM 4.3 MMOL/L (3.5-5.1); SODIUM 139 MMOL/L (135-145); TOTAL CARBON DIOXIDE 27.4 MMOL/L (24-32); TOTAL PROTEIN 7.1 G/DL (6.4-8.2); eGFR 77 ML/MIN
[2022-07-10 22:00] LABS: UA COLLECTION TYPE CLN CATCH MIDSTREAM
[2022-07-10] MEDS ORDERED: acetaminophen 325mg tablet PO ONE (22:20)
== END 2022-07-10 22:46 | disposition home or self-care (01) ==
LOC: ER 18:41
DX: R56.9 Unspecified convulsions (principal); I10 Essential (primary) hypertension; K21.9 Gastro-esophageal reflux disease without esophagitis; F41.9 Anxiety disorder, unspecified; Z86.69 Personal history of other diseases of the nervous system and sense organs; Z90.49 Acquired absence of other specified parts of digestive tract; Z98.51 Tubal ligation status; Z98.890 Other specified postprocedural states; Z88.8 Allergy status to other drugs, medicaments and biological substances; Z88.5 Allergy status to narcotic agent; Z79.899 Other long term (current) drug therapy
CPT/HCPCS: 80053; 81003; 85025; 99284

== ENCOUNTER 2022-07-12 12:33 | Emergency (ER) | payer MEDICARE, MEDICAID ==
[~2022-07-12] VITALS: Ht 165.1 cm; Wt 126.0 kg
[2022-07-12 13:12] VITALS: BP 179/97
== END 2022-07-12 14:23 | disposition home or self-care (01) ==
LOC: ER 12:34
DX: G40.909 Epilepsy, unspecified, not intractable, without status epilepticus (principal); I10 Essential (primary) hypertension; K21.9 Gastro-esophageal reflux disease without esophagitis; Z88.5 Allergy status to narcotic agent; Z88.8 Allergy status to other drugs, medicaments and biological substances; Z91.018 Allergy to other foods; Z90.49 Acquired absence of other specified parts of digestive tract; Z98.51 Tubal ligation status
CPT/HCPCS: 99283

== ENCOUNTER 2022-08-15 18:42 | Emergency (ER) | payer MEDICARE, MEDICAID ==
[~2022-08-15] VITALS: Ht 160 cm; Wt 104.8 kg
[2022-08-15 19:07] VITALS: BP 186/91
--- NOTE | 2022-08-15 20:34 | NUR ---
[facility] CALLED ETA 25 MIN . PT INFORMED
== END 2022-08-15 20:47 | disposition home or self-care (01) ==
LOC: ER 18:42
DX: R56.9 Unspecified convulsions (principal); I10 Essential (primary) hypertension; K21.9 Gastro-esophageal reflux disease without esophagitis; Z88.5 Allergy status to narcotic agent; Z88.8 Allergy status to other drugs, medicaments and biological substances; Z91.018 Allergy to other foods; Z90.49 Acquired absence of other specified parts of digestive tract; Z98.51 Tubal ligation status
CPT/HCPCS: 93005; 99283

== ENCOUNTER 2022-08-16 10:58 | Emergency (ER) | payer MEDICARE, MEDICAID ==
[~2022-08-16] VITALS: Ht 160 cm; Wt 119.1 kg
--- NOTE | 2022-08-16 12:00 | NUR ---
UP TO BSC VOIDED 400CC CLEAR YELLOW URINE, BM X1 LOOSE WATERY BROWNISH IN COLOR.
[2022-08-16] MEDS ORDERED: acetaminophen 325mg tablet PO ONE (12:05)
[2022-08-16 12:23] LABS: HEMOGLOBIN 12.2 g/dl (12.0-16.0); LYMPHOCYTES # (AUTO) 1.2 X10'3 (1.1-4.8)
[2022-08-16 12:25] LABS: BASOPHILS % (AUTO) 0.6 % (0-1); EOSINOPHILS % (AUTO) 0.4 % (0-6); HEMATOCRIT 36.1 % (35.0-45.0); LYMPHOCYTES % (AUTO) 15.5 % (21-51); MEAN CORPUSCULAR HEMOGLOBIN 28.1 PG (27.0-31.0); MEAN CORPUSCULAR HGB CONC 33.8 g/dL (33.0-36.5); MEAN CORPUSCULAR VOLUME 83.1 FL (78-98); MONOCYTES # (AUTO) 0.3 X10'3 (0-0.9); MONOCYTES % (AUTO) 4.1 % (2-12); NEUTROPHILS # (AUTO) 6.3 X10'3 (1.8-7.7); NEUTROPHILS % (AUTO) 79.4 % (42-75); PLATELET COUNT 394 X10'3 (140-440); RED BLOOD COUNT 4.34 X10'6 (4.20-5.60); RED CELL DISTRIBUTION WIDTH 15.2 % (11.5-14.5)
[2022-08-16 12:40] LABS: ALANINE AMINOTRANSFERASE 26 U/L (12-78); ALBUMIN 3.3 G/DL (3.4-5.0); ALBUMIN/GLOBULIN RATIO 0.8 (1.1-1.5); ALKALINE PHOSPHATASE 90 IU/L (46-116); ANION GAP 9 (8-16); ASPARTATE AMINO TRANSFERASE 19 U/L (10-37); BILIRUBIN,TOTAL 0.2 MG/DL (0.1-1.0); BLOOD UREA NITROGEN 10 MG/DL (7-18); BUN/CREATININE RATIO 14.3 (6.6-38.0); CALCIUM 9.1 MG/DL (8.5-10.1); CHLORIDE 99 MMOL/L (99-107); GLUCOSE 100 MG/DL (70-104); POTASSIUM 4.1 MMOL/L (3.5-5.1); SODIUM 136 MMOL/L (135-145); TOTAL CARBON DIOXIDE 28.4 MMOL/L (24-32); TOTAL PROTEIN 7.7 G/DL (6.4-8.2); eGFR 85 ML/MIN
[2022-08-16 13:16] VITALS: BP 171/82
== END 2022-08-16 13:15 | disposition home or self-care (01) ==
LOC: ER 10:58
DX: G40.909 Epilepsy, unspecified, not intractable, without status epilepticus (principal); M25.561 Pain in right knee; I10 Essential (primary) hypertension; K21.9 Gastro-esophageal reflux disease without esophagitis; Z88.5 Allergy status to narcotic agent; Z88.8 Allergy status to other drugs, medicaments and biological substances; Z91.018 Allergy to other foods; Z90.49 Acquired absence of other specified parts of digestive tract; Z98.51 Tubal ligation status
CPT/HCPCS: 80053; 85025; 99284

== ENCOUNTER 2022-08-26 21:10 | Emergency (ER) | payer MEDICARE, MEDICAID ==
[~2022-08-26] VITALS: Ht 172.7 cm; Wt 119.1 kg
[2022-08-26] MEDS ORDERED: ketorolac tromethamine 15mg/ml inj. IV ONE (22:35)
[2022-08-26 22:55] VITALS: BP 134/66
== END 2022-08-26 22:57 | disposition home or self-care (01) ==
LOC: ER 21:10
DX: R56.9 Unspecified convulsions (principal); K21.9 Gastro-esophageal reflux disease without esophagitis; I10 Essential (primary) hypertension; F41.9 Anxiety disorder, unspecified; I11.9 Hypertensive heart disease without heart failure; Z91.018 Allergy to other foods; Z88.5 Allergy status to narcotic agent; Z79.899 Other long term (current) drug therapy
CPT/HCPCS: 96372; 99284; J1885

== ENCOUNTER 2022-09-03 16:47 | Emergency (ER) | payer MEDICARE, MEDICAID ==
[~2022-09-03] VITALS: Ht 160 cm; Wt 119.1 kg
--- NOTE | 2022-09-03 18:20 | NUR ---
pt states, " my bowel movements bring my sz on.
--- NOTE | 2022-09-03 18:20 | NUR ---
pt doesnt remember her last sz.
[2022-09-03 18:28] LABS: BASOPHILS # (AUTO) 0.1 X10'3 (0-0.2); BASOPHILS % (AUTO) 1.5 % (0-1); EOSINOPHILS # (AUTO) 0.1 X10'3 (0-0.9); EOSINOPHILS % (AUTO) 1.4 % (0-6); HEMATOCRIT 34.6 % (35.0-45.0); HEMOGLOBIN 11.5 g/dl (12.0-16.0); LYMPHOCYTES # (AUTO) 1.3 X10'3 (1.1-4.8); LYMPHOCYTES % (AUTO) 14.4 % (21-51); MEAN CORPUSCULAR HEMOGLOBIN 27.8 PG (27.0-31.0); MEAN CORPUSCULAR HGB CONC 33.3 g/dL (33.0-36.5); MEAN CORPUSCULAR VOLUME 83.6 FL (78-98); MONOCYTES # (AUTO) 0.5 X10'3 (0-0.9); MONOCYTES % (AUTO) 5.2 % (2-12); NEUTROPHILS # (AUTO) 6.8 X10'3 (1.8-7.7); NEUTROPHILS % (AUTO) 77.5 % (42-75); PLATELET COUNT 382 X10'3 (140-440); RED BLOOD COUNT 4.13 X10'6 (4.20-5.60); RED CELL DISTRIBUTION WIDTH 15.8 % (11.5-14.5); WHITE BLOOD COUNT 8.8 X10'3 (4.5-11.0)
[2022-09-03 18:47] LABS: ALANINE AMINOTRANSFERASE 25 U/L (12-78); ALBUMIN 3.2 G/DL (3.4-5.0); ALBUMIN/GLOBULIN RATIO 0.8 (1.1-1.5); ALKALINE PHOSPHATASE 85 IU/L (46-116); ANION GAP 8 (8-16); ASPARTATE AMINO TRANSFERASE 16 U/L (10-37); BILIRUBIN,TOTAL 0.1 MG/DL (0.1-1.0); BLOOD UREA NITROGEN 16 MG/DL (7-18); BUN/CREATININE RATIO 16.8 (6.6-38.0); CALCIUM 8.8 MG/DL (8.5-10.1); CHLORIDE 102 MMOL/L (99-107); CREATININE 0.95 MG/DL (0.40-0.90); GLUCOSE 99 MG/DL (70-104); POTASSIUM 4.3 MMOL/L (3.5-5.1); SODIUM 139 MMOL/L (135-145); TOTAL CARBON DIOXIDE 29.1 MMOL/L (24-32); TOTAL PROTEIN 7.4 G/DL (6.4-8.2); eGFR 59 ML/MIN
[2022-09-03 19:26] LABS: CLARITY,URINE SLIGHTLY CLOUDY (Clear); COLOR,URINE YELLOW (Yellow); GLUCOSE, URINE NEGATIVE (Neg); KETONES,URINE NEGATIVE (Neg); LEUKOCYTE ESTERASE ,URINE TRACE (Neg); NITRITES, URINE NEGATIVE (Neg); OCCULT BLOOD,URINE SMALL (Neg); PROTEIN,URINE NEGATIVE (Neg); UROBILINOGEN,URINE 0.2 E.U/dL (0.2-1.0)
[2022-09-03 19:29] LABS: UA COLLECTION TYPE CLN CATCH MIDSTREAM
[2022-09-03 19:53] VITALS: BP 144/66
[2022-09-03 20:20] LABS: AMORPHOUS PHOSPHATES 2+; BACTERIA,URINE 2+ /HPF (Neg); MUCUS STRANDS NONE SEEN /LPF (Neg); RBC,URINE 0-2 /HPF (0-2); SQUAMOUS EPITHELIAL CELL,UR FEW /LPF (FEW); WBC,URINE 0-4 /HPF (0-4)
[2022-09-03] MEDS ORDERED: LORazepam 2 mg/ml vial IV ONE (21:45)
[2022-09-03] MEDS ORDERED: ketorolac trometh. 30mg/ml inj. IV ONE (22:10)
== END 2022-09-03 22:43 | disposition home or self-care (01) ==
LOC: ER 16:47
DX: G40.909 Epilepsy, unspecified, not intractable, without status epilepticus (principal); I10 Essential (primary) hypertension; K21.9 Gastro-esophageal reflux disease without esophagitis; Z91.018 Allergy to other foods; Z88.8 Allergy status to other drugs, medicaments and biological substances; Z88.5 Allergy status to narcotic agent; Z90.49 Acquired absence of other specified parts of digestive tract; Z98.51 Tubal ligation status
CPT/HCPCS: 36415; 80053; 81001; 85025; 96374; 96375; 99284; J1885; J2060

== ENCOUNTER 2022-09-04 18:54 | Emergency (ER) | payer MEDICARE, MEDICAID ==
[~2022-09-04] VITALS: Ht 160 cm; Wt 119.0 kg
[2022-09-04 19:38] LABS: BASOPHILS # (AUTO) 0.1 X10'3 (0-0.2); BASOPHILS % (AUTO) 1.2 % (0-1); EOSINOPHILS # (AUTO) 0.2 X10'3 (0-0.9); EOSINOPHILS % (AUTO) 1.8 % (0-6); HEMATOCRIT 34.5 % (35.0-45.0); HEMOGLOBIN 11.4 g/dl (12.0-16.0); LYMPHOCYTES # (AUTO) 1.9 X10'3 (1.1-4.8); MEAN CORPUSCULAR HEMOGLOBIN 28.1 PG (27.0-31.0); MEAN CORPUSCULAR HGB CONC 33.2 g/dL (33.0-36.5); MEAN CORPUSCULAR VOLUME 84.5 FL (78-98); MONOCYTES # (AUTO) 0.6 X10'3 (0-0.9); NEUTROPHILS # (AUTO) 6.8 X10'3 (1.8-7.7); PLATELET COUNT 391 X10'3 (140-440); RED BLOOD COUNT 4.08 X10'6 (4.20-5.60); RED CELL DISTRIBUTION WIDTH 15.8 % (11.5-14.5); WHITE BLOOD COUNT 9.6 X10'3 (4.5-11.0)
[2022-09-04 19:52] LABS: ALANINE AMINOTRANSFERASE 24 U/L (12-78); ALBUMIN 3.3 G/DL (3.4-5.0); ALBUMIN/GLOBULIN RATIO 0.8 (1.1-1.5); ALKALINE PHOSPHATASE 86 IU/L (46-116); ANION GAP 6 (8-16); ASPARTATE AMINO TRANSFERASE 18 U/L (10-37); BILIRUBIN,TOTAL 0.1 MG/DL (0.1-1.0); BLOOD UREA NITROGEN 18 MG/DL (7-18); BUN/CREATININE RATIO 18.8 (6.6-38.0); CALCIUM 8.9 MG/DL (8.5-10.1); CHLORIDE 103 MMOL/L (99-107); CREATININE 0.96 MG/DL (0.40-0.90); GLUCOSE 96 MG/DL (70-104); POTASSIUM 4.2 MMOL/L (3.5-5.1); SODIUM 139 MMOL/L (135-145); TOTAL CARBON DIOXIDE 30.2 MMOL/L (24-32); TOTAL PROTEIN 7.5 G/DL (6.4-8.2); eGFR 59 ML/MIN
[2022-09-04] MEDS ORDERED: LORazepam 2 mg/ml vial IV ONE (20:45)
[2022-09-04 21:13] VITALS: BP 160/93
== END 2022-09-04 21:16 | disposition home or self-care (01) ==
LOC: ER 18:54
DX: G40.909 Epilepsy, unspecified, not intractable, without status epilepticus (principal); Z86.73 Personal history of transient ischemic attack (TIA), and cerebral infarction without residual deficits; I10 Essential (primary) hypertension; K21.9 Gastro-esophageal reflux disease without esophagitis; M19.90 Unspecified osteoarthritis, unspecified site; F41.9 Anxiety disorder, unspecified; Z90.49 Acquired absence of other specified parts of digestive tract; Z98.51 Tubal ligation status; Z98.890 Other specified postprocedural states; Z88.5 Allergy status to narcotic agent; Z88.8 Allergy status to other drugs, medicaments and biological substances; Z91.018 Allergy to other foods
CPT/HCPCS: 36415; 80053; 85025; 96374; 99284; J2060; A4615

== ENCOUNTER 2022-09-05 21:01 | Emergency (ER) | payer MEDICARE, MEDICAID ==
[~2022-09-05] VITALS: Ht 165.1 cm; Wt 104.5 kg
[2022-09-05 21:57] LABS: BASOPHILS % (AUTO) 0.2 % (0-1); EOSINOPHILS # (AUTO) 0.2 X10'3 (0-0.9); HEMATOCRIT 32.1 % (35.0-45.0); HEMOGLOBIN 11.1 g/dl (12.0-16.0); LYMPHOCYTES # (AUTO) 1.9 X10'3 (1.1-4.8); LYMPHOCYTES % (AUTO) 19.1 % (21-51); MEAN CORPUSCULAR HEMOGLOBIN 28.4 PG (27.0-31.0); MEAN CORPUSCULAR HGB CONC 34.5 g/dL (33.0-36.5); MEAN CORPUSCULAR VOLUME 82.4 FL (78-98); MEAN PLATELET VOLUME 6.8 FL (7.4-10.4); MONOCYTES # (AUTO) 0.6 X10'3 (0-0.9); MONOCYTES % (AUTO) 5.8 % (2-12); NEUTROPHILS # (AUTO) 7.3 X10'3 (1.8-7.7); NEUTROPHILS % (AUTO) 72.9 % (42-75); PLATELET COUNT 375 X10'3 (140-440); RED BLOOD COUNT 3.89 X10'6 (4.20-5.60); RED CELL DISTRIBUTION WIDTH 15.8 % (11.5-14.5)
[2022-09-05 21:59] VITALS: BP 187/98
[2022-09-05 22:05] LABS: ALBUMIN 3.2 G/DL (3.4-5.0); ANION GAP 6 (8-16); BLOOD UREA NITROGEN 19 MG/DL (7-18); BUN/CREATININE RATIO 21.8 (6.6-38.0); CALCIUM 8.8 MG/DL (8.5-10.1); CHLORIDE 103 MMOL/L (99-107); CREATININE 0.87 MG/DL (0.40-0.90); GLUCOSE 108 MG/DL (70-104); POTASSIUM 3.9 MMOL/L (3.5-5.1); SODIUM 137 MMOL/L (135-145); TOTAL CARBON DIOXIDE 28.4 MMOL/L (24-32); eGFR 66 ML/MIN
[2022-09-06] MEDS: LORazepam 1 MG tablet PO ONE (01:45)
== END 2022-09-06 02:03 | disposition home or self-care (01) ==
LOC: ER 21:02
DX: R56.9 Unspecified convulsions (principal); K21.9 Gastro-esophageal reflux disease without esophagitis; F41.9 Anxiety disorder, unspecified; I10 Essential (primary) hypertension; Z88.5 Allergy status to narcotic agent; Z79.899 Other long term (current) drug therapy; Z91.02 Food additives allergy status
CPT/HCPCS: 36415; 80048; 83605; 85025; 99283

== ENCOUNTER 2022-09-16 14:42 | Emergency (ER) | payer MEDICARE, MEDICAID ==
[~2022-09-16] VITALS: Ht 160 cm; Wt 117.7 kg
[2022-09-16] MEDS ORDERED: LORazepam 1 MG tablet PO ONE (14:55)
[2022-09-16 16:30] VITALS: BP 172/88
== END 2022-09-16 16:35 | disposition home or self-care (01) ==
LOC: ER 14:43
DX: G40.909 Epilepsy, unspecified, not intractable, without status epilepticus (principal); I10 Essential (primary) hypertension; K21.9 Gastro-esophageal reflux disease without esophagitis; Z91.018 Allergy to other foods; Z88.5 Allergy status to narcotic agent; Z88.8 Allergy status to other drugs, medicaments and biological substances; Z90.49 Acquired absence of other specified parts of digestive tract; Z98.51 Tubal ligation status
CPT/HCPCS: 99284

== ENCOUNTER 2022-09-24 18:01 | Emergency (ER) | payer MEDICARE, MEDICAID ==
[~2022-09-24] VITALS: Ht 160 cm; Wt 117.7 kg
[2022-09-24] MEDS ORDERED: LORazepam 1 MG tablet PO ONE (18:45)
--- NOTE | 2022-09-24 19:37 | NUR ---
relieving RN for break, pt is resting quietly on gurney, family at bedside, pt is alert, oriented x3, GCS15, c/o headache behind rt eye
[2022-09-24] MEDS ORDERED: ketorolac trometh inj. 60 MG/2 ML VIAL IM ONE (19:40)
[2022-09-24 19:53] VITALS: BP 141/77
--- NOTE | 2022-09-24 20:43 | NUR ---
pt has been dc'd home, waiting for [facility], ETA 1 1/2 hours (3169), pt will wait in room 14 as she is wheelchair bound and does not have her chair here, family at bedside
== END 2022-09-24 22:12 | disposition home or self-care (01) ==
LOC: ER 18:02
DX: G40.909 Epilepsy, unspecified, not intractable, without status epilepticus (principal); I10 Essential (primary) hypertension; K21.9 Gastro-esophageal reflux disease without esophagitis; Z91.018 Allergy to other foods; Z88.5 Allergy status to narcotic agent; Z88.8 Allergy status to other drugs, medicaments and biological substances; Z90.49 Acquired absence of other specified parts of digestive tract; Z98.51 Tubal ligation status
CPT/HCPCS: 96372; 99284; J1885

== ENCOUNTER 2022-09-26 18:06 | Emergency (ER) | payer MEDICARE, MEDICAID ==
[~2022-09-26] VITALS: Ht 160 cm; Wt 117.7 kg
[2022-09-26 18:30] VITALS: BP 180/80
== END 2022-09-26 19:30 | disposition home or self-care (01) ==
LOC: ER 18:07
DX: G40.802 Other epilepsy, not intractable, without status epilepticus (principal); K21.9 Gastro-esophageal reflux disease without esophagitis; I10 Essential (primary) hypertension; F41.9 Anxiety disorder, unspecified; Z91.013 Allergy to seafood; Z88.5 Allergy status to narcotic agent; Z79.899 Other long term (current) drug therapy
CPT/HCPCS: 99283

== ENCOUNTER 2022-10-03 17:18 | Emergency (ER) | payer MEDICARE, MEDICAID ==
[~2022-10-03] VITALS: Ht 160 cm; Wt 117.0 kg
[2022-10-03 17:32] VITALS: BP 167/101
[2022-10-03] MEDS ORDERED: LORazepam 1 MG tablet PO ONE (20:35)
== END 2022-10-03 21:18 | disposition home or self-care (01) ==
LOC: ER 17:18
DX: G40.909 Epilepsy, unspecified, not intractable, without status epilepticus (principal); K21.9 Gastro-esophageal reflux disease without esophagitis; I10 Essential (primary) hypertension; M19.90 Unspecified osteoarthritis, unspecified site; Z88.8 Allergy status to other drugs, medicaments and biological substances; Z91.018 Allergy to other foods; Z88.5 Allergy status to narcotic agent; Z90.49 Acquired absence of other specified parts of digestive tract; Z98.51 Tubal ligation status
CPT/HCPCS: 99283

== ENCOUNTER 2022-10-11 20:33 | Emergency (ER) | payer MEDICARE, MEDICAID ==
[~2022-10-11] VITALS: Ht 160 cm; Wt 118.2 kg
[2022-10-11 21:01] VITALS: BP 162/100
== END 2022-10-12 00:37 | disposition left against medical advice (07) ==
LOC: ER 20:34
DX: R56.9 Unspecified convulsions (principal); Z53.21 Procedure and treatment not carried out due to patient leaving prior to being seen by health care provider

== ENCOUNTER 2022-10-29 18:30 | Emergency (ER) | payer MEDICARE, MEDICAID ==
[~2022-10-29] VITALS: Ht 160 cm; Wt 117.7 kg
[2022-10-29] MEDS ORDERED: diazepam inj 5 MG/ML inj. IM ONE (20:55)
[2022-10-29] MEDS ORDERED: ketorolac trometh. 30mg/ml inj. IM ONE (20:55)
[2022-10-29 21:03] VITALS: BP 156/81
== END 2022-10-29 22:07 | disposition home or self-care (01) ==
LOC: ER 18:31
DX: R56.9 Unspecified convulsions (principal); M79.661 Pain in right lower leg; I10 Essential (primary) hypertension; K21.9 Gastro-esophageal reflux disease without esophagitis; F41.9 Anxiety disorder, unspecified; Z86.73 Personal history of transient ischemic attack (TIA), and cerebral infarction without residual deficits; Z86.69 Personal history of other diseases of the nervous system and sense organs; Z90.49 Acquired absence of other specified parts of digestive tract; Z98.51 Tubal ligation status; Z98.890 Other specified postprocedural states; Z88.5 Allergy status to narcotic agent; Z88.8 Allergy status to other drugs, medicaments and biological substances; Z79.899 Other long term (current) drug therapy
CPT/HCPCS: 96372; 99284; J1885; J3360

== ENCOUNTER 2022-11-04 19:25 | Emergency (ER) | payer MEDICARE, MEDICAID ==
[~2022-11-04] VITALS: Ht 160 cm; Wt 120.0 kg
[2022-11-04] MEDS ORDERED: ondansetron 4mg rapidly disintigrating tab PO ONE (22:35)
[2022-11-04] MEDS ORDERED: ketorolac tromethamine 15mg/ml inj. IM ONE (22:35)
[2022-11-04] MEDS ORDERED: LORazepam 2 mg/ml vial IM ONE (22:35)
[2022-11-04 23:16] VITALS: BP 138/84
== END 2022-11-04 23:17 | disposition home or self-care (01) ==
LOC: ER 19:26
DX: R56.9 Unspecified convulsions (principal); I10 Essential (primary) hypertension; K21.9 Gastro-esophageal reflux disease without esophagitis; F41.9 Anxiety disorder, unspecified; Z91.018 Allergy to other foods; Z88.8 Allergy status to other drugs, medicaments and biological substances; Z88.5 Allergy status to narcotic agent; Z79.899 Other long term (current) drug therapy
CPT/HCPCS: 96372; 99284; J1885; J2060

== ENCOUNTER 2022-11-10 16:13 | Emergency (ER) | payer MEDICARE, MEDICAID ==
[~2022-11-10] VITALS: Ht 160 cm; Wt 120.0 kg
[2022-11-10] MEDS ORDERED: LORazepam 2 mg/ml vial IM ONE (22:05)
[2022-11-10] MEDS ORDERED: ketorolac trometh. 30mg/ml inj. IM ONE (22:05)
[2022-11-10 22:45] LABS: BASOPHILS # (AUTO) 0.1 X10'3 (0-0.2); BASOPHILS % (AUTO) 0.7 % (0-1); EOSINOPHILS # (AUTO) 0.1 X10'3 (0-0.9); EOSINOPHILS % (AUTO) 0.8 % (0-6); HEMATOCRIT 37.6 % (35.0-45.0); HEMOGLOBIN 12.4 g/dl (12.0-16.0); LYMPHOCYTES % (AUTO) 25.2 % (21-51); MEAN CORPUSCULAR HEMOGLOBIN 27.7 PG (27.0-31.0); MEAN CORPUSCULAR HGB CONC 32.9 g/dL (33.0-36.5); MEAN CORPUSCULAR VOLUME 84.4 FL (78-98); MEAN PLATELET VOLUME 7.3 FL (7.4-10.4); MONOCYTES # (AUTO) 0.4 X10'3 (0-0.9); MONOCYTES % (AUTO) 5.6 % (2-12); NEUTROPHILS # (AUTO) 5.3 X10'3 (1.8-7.7); NEUTROPHILS % (AUTO) 67.7 % (42-75); PLATELET COUNT 410 X10'3 (140-440); RED BLOOD COUNT 4.46 X10'6 (4.20-5.60); RED CELL DISTRIBUTION WIDTH 17.3 % (11.5-14.5); WHITE BLOOD COUNT 7.8 X10'3 (4.5-11.0)
[2022-11-10 22:49] LABS: ALANINE AMINOTRANSFERASE 26 U/L (12-78); ALBUMIN 3.6 G/DL (3.4-5.0); ALBUMIN/GLOBULIN RATIO 0.8 (1.1-1.5); ALKALINE PHOSPHATASE 94 IU/L (46-116); ANION GAP 7 (8-16); ASPARTATE AMINO TRANSFERASE 22 U/L (10-37); BILIRUBIN,TOTAL 0.2 MG/DL (0.1-1.0); BLOOD UREA NITROGEN 17 MG/DL (7-18); BUN/CREATININE RATIO 23.6 (6.6-38.0); CALCIUM 9.2 MG/DL (8.5-10.1); CHLORIDE 99 MMOL/L (99-107); CREATININE 0.72 MG/DL (0.40-0.90); GLUCOSE 107 MG/DL (70-104); POTASSIUM 4.2 MMOL/L (3.5-5.1); SODIUM 135 MMOL/L (135-145); TOTAL CARBON DIOXIDE 28.9 MMOL/L (24-32); TOTAL PROTEIN 7.9 G/DL (6.4-8.2); eGFR 82 ML/MIN
[2022-11-10] MEDS ORDERED: ondansetron 4mg rapidly disintigrating tab PO ONE (23:00)
[2022-11-11 02:01] VITALS: BP 166/78
== END 2022-11-10 23:36 | disposition home or self-care (01) ==
LOC: ER 16:14
DX: G40.909 Epilepsy, unspecified, not intractable, without status epilepticus (principal); I10 Essential (primary) hypertension; K21.9 Gastro-esophageal reflux disease without esophagitis; F41.9 Anxiety disorder, unspecified; Z86.73 Personal history of transient ischemic attack (TIA), and cerebral infarction without residual deficits; Z86.69 Personal history of other diseases of the nervous system and sense organs; Z90.49 Acquired absence of other specified parts of digestive tract; Z98.51 Tubal ligation status; Z98.890 Other specified postprocedural states; Z88.5 Allergy status to narcotic agent; Z79.899 Other long term (current) drug therapy
CPT/HCPCS: 36415; 80053; 85025; 96372; 99284; J1885; J2060

== ENCOUNTER 2022-11-11 16:49 | Emergency (ER) | payer MEDICARE, MEDICAID ==
[~2022-11-11] VITALS: Ht 160 cm; Wt 90.9 kg
[2022-11-11] MEDS ORDERED: ondansetron/PF 4mg/2ml inj IV ONE (18:15)
[2022-11-11 18:35] LABS: BASOPHILS # (AUTO) 0.1 X10'3 (0-0.2); BASOPHILS % (AUTO) 0.8 % (0-1); EOSINOPHILS # (AUTO) 0.1 X10'3 (0-0.9); EOSINOPHILS % (AUTO) 1.5 % (0-6); HEMATOCRIT 36.5 % (35.0-45.0); HEMOGLOBIN 11.9 g/dl (12.0-16.0); LYMPHOCYTES # (AUTO) 1.3 X10'3 (1.1-4.8); LYMPHOCYTES % (AUTO) 14.4 % (21-51); MEAN CORPUSCULAR HEMOGLOBIN 27.5 PG (27.0-31.0); MEAN CORPUSCULAR HGB CONC 32.5 g/dL (33.0-36.5); MEAN CORPUSCULAR VOLUME 84.6 FL (78-98); MONOCYTES # (AUTO) 0.5 X10'3 (0-0.9); MONOCYTES % (AUTO) 5.8 % (2-12); NEUTROPHILS # (AUTO) 7.3 X10'3 (1.8-7.7); NEUTROPHILS % (AUTO) 77.5 % (42-75); PLATELET COUNT 371 X10'3 (140-440); RED BLOOD COUNT 4.32 X10'6 (4.20-5.60); RED CELL DISTRIBUTION WIDTH 17.2 % (11.5-14.5); WHITE BLOOD COUNT 9.4 X10'3 (4.5-11.0)
[2022-11-11 18:56] LABS: ALANINE AMINOTRANSFERASE 29 U/L (12-78); ALBUMIN 3.4 G/DL (3.4-5.0); ALBUMIN/GLOBULIN RATIO 0.9 (1.1-1.5); ALKALINE PHOSPHATASE 88 IU/L (46-116); ANION GAP 6 (8-16); ASPARTATE AMINO TRANSFERASE 22 U/L (10-37); BILIRUBIN,TOTAL 0.2 MG/DL (0.1-1.0); BLOOD UREA NITROGEN 18 MG/DL (7-18); BUN/CREATININE RATIO 23.4 (6.6-38.0); CALCIUM 8.7 MG/DL (8.5-10.1); CHLORIDE 100 MMOL/L (99-107); CREATININE 0.77 MG/DL (0.40-0.90); GLUCOSE 142 MG/DL (70-104); POTASSIUM 3.6 MMOL/L (3.5-5.1); SODIUM 133 MMOL/L (135-145); TOTAL CARBON DIOXIDE 26.6 MMOL/L (24-32); TOTAL PROTEIN 7.4 G/DL (6.4-8.2); eGFR 76 ML/MIN
[2022-11-11] MEDS ORDERED: ondansetron 4mg rapidly disintigrating tab PO STA (20:03)
[2022-11-11 20:34] VITALS: BP 165/101
== END 2022-11-11 20:37 | disposition home or self-care (01) ==
LOC: ER 16:50
DX: R56.9 Unspecified convulsions (principal); I11.9 Hypertensive heart disease without heart failure; K21.9 Gastro-esophageal reflux disease without esophagitis; F41.9 Anxiety disorder, unspecified; Z79.899 Other long term (current) drug therapy; Z88.8 Allergy status to other drugs, medicaments and biological substances; Z91.018 Allergy to other foods
CPT/HCPCS: 36415; 80053; 85025; 99284

== ENCOUNTER 2022-12-15 09:33 | Emergency (ER) | payer MEDICARE, MEDICAID ==
[~2022-12-15] VITALS: Ht 160 cm; Wt 120.0 kg
[2022-12-15] MEDS ORDERED: LORazepam 1 MG tablet PO ONE (10:30)
[2022-12-15 10:42] LABS: BASOPHILS # (AUTO) 0.1 X10'3 (0-0.2); BASOPHILS % (AUTO) 0.4 % (0-1); EOSINOPHILS # (AUTO) 0.1 X10'3 (0-0.9); EOSINOPHILS % (AUTO) 0.3 % (0-6); HEMATOCRIT 38.3 % (35.0-45.0); HEMOGLOBIN 12.3 g/dl (12.0-16.0); LYMPHOCYTES # (AUTO) 0.9 X10'3 (1.1-4.8); MEAN CORPUSCULAR HEMOGLOBIN 27.4 PG (27.0-31.0); MEAN CORPUSCULAR HGB CONC 32.3 g/dL (33.0-36.5); MEAN PLATELET VOLUME 7.3 FL (7.4-10.4); MONOCYTES # (AUTO) 0.7 X10'3 (0-0.9); MONOCYTES % (AUTO) 3.8 % (2-12); NEUTROPHILS # (AUTO) 16.2 X10'3 (1.8-7.7); NEUTROPHILS % (AUTO) 90.5 % (42-75); PLATELET COUNT 361 X10'3 (140-440); RED CELL DISTRIBUTION WIDTH 16.2 % (11.5-14.5)
[2022-12-15 11:13] LABS: ALANINE AMINOTRANSFERASE 27 U/L (12-78); ALBUMIN 3.4 G/DL (3.4-5.0); ALBUMIN/GLOBULIN RATIO 0.9 (1.1-1.5); ALKALINE PHOSPHATASE 99 IU/L (46-116); ANION GAP 6 (8-16); ASPARTATE AMINO TRANSFERASE 25 U/L (10-37); BILIRUBIN,TOTAL 0.3 MG/DL (0.1-1.0); BLOOD UREA NITROGEN 17 MG/DL (7-18); CALCIUM 8.7 MG/DL (8.5-10.1); CHLORIDE 99 MMOL/L (99-107); CREATININE 0.81 MG/DL (0.40-0.90); GLUCOSE 124 MG/DL (70-104); MAGNESIUM 2.1 MG/DL (1.5-2.4); POTASSIUM 3.7 MMOL/L (3.5-5.1); SODIUM 134 MMOL/L (135-145); TOTAL CARBON DIOXIDE 29.2 MMOL/L (24-32); TOTAL PROTEIN 7.3 G/DL (6.4-8.2); eGFR 71 ML/MIN
[2022-12-15 12:01] LABS: CLARITY,URINE CLEAR (Clear); COLOR,URINE YELLOW (Yellow); GLUCOSE, URINE NEGATIVE (Neg); KETONES,URINE NEGATIVE (Neg); LEUKOCYTE ESTERASE ,URINE NEGATIVE (Neg); NITRITES, URINE NEGATIVE (Neg); OCCULT BLOOD,URINE NEGATIVE (Neg); PH,URINE 6.5 (4.8-8.0); PROTEIN,URINE NEGATIVE (Neg); UROBILINOGEN,URINE 0.2 E.U/dL (0.2-1.0)
[2022-12-15 12:02] LABS: UA COLLECTION TYPE CLN CATCH MIDSTREAM
[2022-12-15] MEDS ORDERED: diphenhydrAMINE 50 mg/ml inj IV ONE (13:20)
[2022-12-15 13:35] VITALS: BP 134/83
== END 2022-12-15 13:39 | disposition home or self-care (01) ==
LOC: ER 09:34
DX: R56.9 Unspecified convulsions (principal); I10 Essential (primary) hypertension; K21.9 Gastro-esophageal reflux disease without esophagitis; F41.9 Anxiety disorder, unspecified; Z98.51 Tubal ligation status; Z90.49 Acquired absence of other specified parts of digestive tract; Z98.890 Other specified postprocedural states; Z86.73 Personal history of transient ischemic attack (TIA), and cerebral infarction without residual deficits; Z88.5 Allergy status to narcotic agent; Z91.018 Allergy to other foods; Z88.8 Allergy status to other drugs, medicaments and biological substances; Z79.899 Other long term (current) drug therapy
CPT/HCPCS: 36415; 80053; 81003; 83735; 85025; 96374; 99284; J1200

== ENCOUNTER 2022-12-17 13:14 | Emergency (ER) | payer MEDICARE, MEDICAID ==
[~2022-12-17] VITALS: Ht 160 cm; Wt 125.0 kg
[2022-12-17] MEDS ORDERED: LORazepam 2 mg/ml vial IM ONE (14:20)
[2022-12-17 15:00] VITALS: BP 150/89
== END 2022-12-17 15:25 | disposition home or self-care (01) ==
LOC: ER 13:15
DX: G40.909 Epilepsy, unspecified, not intractable, without status epilepticus (principal); I10 Essential (primary) hypertension; K21.9 Gastro-esophageal reflux disease without esophagitis; M19.90 Unspecified osteoarthritis, unspecified site; Z91.018 Allergy to other foods; Z88.5 Allergy status to narcotic agent; Z88.8 Allergy status to other drugs, medicaments and biological substances; Z98.51 Tubal ligation status; Z90.49 Acquired absence of other specified parts of digestive tract
CPT/HCPCS: 82948; 96372; 99283; J2060

== ENCOUNTER 2023-01-05 16:51 | Emergency (ER) | payer MEDICARE, MEDICAID ==
[~2023-01-05] VITALS: Ht 160 cm; Wt 121.8 kg
[2023-01-05] MEDS ORDERED: LORazepam 2 mg/ml vial IV ONE (18:45)
[2023-01-05] MEDS ORDERED: normal saline 1000ml 1,000 ML IV ONE (18:45)
[2023-01-05] MEDS: ondansetron 4mg rapidly disintigrating tab PO ONE ×2 (18:50→20:26)
[2023-01-05] MEDS ORDERED: morphine 4 MG/ML inj SYRINge IV ONE (18:50)
[2023-01-05 19:19] LABS: BASOPHILS # (AUTO) 0.1 X10'3 (0-0.2); BASOPHILS % (AUTO) 0.6 % (0-1); EOSINOPHILS % (AUTO) 0.4 % (0-6); HEMATOCRIT 36.9 % (35.0-45.0); HEMOGLOBIN 12.1 g/dl (12.0-16.0); LYMPHOCYTES % (AUTO) 8.8 % (21-51); MEAN CORPUSCULAR HGB CONC 32.7 g/dL (33.0-36.5); MEAN CORPUSCULAR VOLUME 85.5 FL (78-98); MEAN PLATELET VOLUME 7.3 FL (7.4-10.4); MONOCYTES # (AUTO) 0.6 X10'3 (0-0.9); MONOCYTES % (AUTO) 5.8 % (2-12); NEUTROPHILS # (AUTO) 9.2 X10'3 (1.8-7.7); NEUTROPHILS % (AUTO) 84.4 % (42-75); PLATELET COUNT 370 X10'3 (140-440); RED BLOOD COUNT 4.32 X10'6 (4.20-5.60); RED CELL DISTRIBUTION WIDTH 16.6 % (11.5-14.5); WHITE BLOOD COUNT 10.9 X10'3 (4.5-11.0)
[2023-01-05 19:27] LABS: ALANINE AMINOTRANSFERASE 23 U/L (12-78); ALBUMIN 3.4 G/DL (3.4-5.0); ALBUMIN/GLOBULIN RATIO 0.9 (1.1-1.5); ALKALINE PHOSPHATASE 96 IU/L (46-116); ANION GAP 9 (8-16); ASPARTATE AMINO TRANSFERASE 21 U/L (10-37); BILIRUBIN,TOTAL 0.3 MG/DL (0.1-1.0); BLOOD UREA NITROGEN 16 MG/DL (7-18); BUN/CREATININE RATIO 18.2 (6.6-38.0); CALCIUM 8.7 MG/DL (8.5-10.1); CHLORIDE 101 MMOL/L (99-107); CREATININE 0.88 MG/DL (0.40-0.90); GLUCOSE 140 MG/DL (70-104); POTASSIUM 3.9 MMOL/L (3.5-5.1); SODIUM 136 MMOL/L (135-145); TOTAL CARBON DIOXIDE 26.3 MMOL/L (24-32); TOTAL PROTEIN 7.3 G/DL (6.4-8.2); eGFR 65 ML/MIN
[2023-01-05] MEDS ORDERED: morphine 2 MG/ML inj. syringe IM ONE (20:05)
[2023-01-05] MEDS ORDERED: LORazepam 2 mg/ml vial IM ONE (20:05)
--- NOTE | 2023-01-05 20:05 | NUR ---
Per Dr. Lai given, IM
[2023-01-05 20:11] LABS: CLARITY,URINE CLEAR (Clear); COLOR,URINE YELLOW (Yellow); GLUCOSE, URINE NEGATIVE (Neg); KETONES,URINE NEGATIVE (Neg); LEUKOCYTE ESTERASE ,URINE NEGATIVE (Neg); NITRITES, URINE NEGATIVE (Neg); OCCULT BLOOD,URINE TRACE-INTACT (Neg); PH,URINE 5.5 (4.8-8.0); PROTEIN,URINE NEGATIVE (Neg); UROBILINOGEN,URINE 0.2 E.U/dL (0.2-1.0)
[2023-01-05 20:16] LABS: UA COLLECTION TYPE CLN CATCH MIDSTREAM
[2023-01-05 20:24] LABS: BACTERIA,URINE FEW /HPF (Neg); RBC,URINE 0-2 /HPF (0-2); SQUAMOUS EPITHELIAL CELL,UR MODERATE /LPF (FEW); WBC,URINE 0-4 /HPF (0-4)
[2023-01-05] MEDS ORDERED: ondansetron 4mg rapidly disintigrating tab PO ONE (20:35)
[2023-01-05 20:46] VITALS: BP 144/84
== END 2023-01-05 20:48 | disposition home or self-care (01) ==
LOC: ER 16:52
DX: G40.909 Epilepsy, unspecified, not intractable, without status epilepticus (principal); I10 Essential (primary) hypertension; K21.9 Gastro-esophageal reflux disease without esophagitis; Z91.018 Allergy to other foods; Z88.5 Allergy status to narcotic agent; Z88.8 Allergy status to other drugs, medicaments and biological substances; Z88.6 Allergy status to analgesic agent; Z90.49 Acquired absence of other specified parts of digestive tract; Z98.51 Tubal ligation status
CPT/HCPCS: 36415; 80053; 81001; 84145; 85025; 96372; 99284; J2060; J2270; J7030

== ENCOUNTER 2023-01-07 22:51 | Emergency (ER) | payer MEDICARE, MEDICAID ==
[~2023-01-07] VITALS: Ht 160 cm; Wt 121.8 kg
[2023-01-07] MEDS ORDERED: normal saline 1000ML IV soln IVB ONE (23:00)
[2023-01-07 23:22] LABS: BASOPHILS # (AUTO) 0.1 X10'3 (0-0.2); EOSINOPHILS # (AUTO) 0.3 X10'3 (0-0.9); EOSINOPHILS % (AUTO) 2.9 % (0-6); HEMOGLOBIN 12.3 g/dl (12.0-16.0); LYMPHOCYTES # (AUTO) 3.1 X10'3 (1.1-4.8); LYMPHOCYTES % (AUTO) 29.2 % (21-51); MEAN CORPUSCULAR HEMOGLOBIN 28.1 PG (27.0-31.0); MEAN CORPUSCULAR HGB CONC 33.2 g/dL (33.0-36.5); MEAN CORPUSCULAR VOLUME 84.5 FL (78-98); MEAN PLATELET VOLUME 7.1 FL (7.4-10.4); MONOCYTES # (AUTO) 0.7 X10'3 (0-0.9); MONOCYTES % (AUTO) 6.4 % (2-12); NEUTROPHILS # (AUTO) 6.5 X10'3 (1.8-7.7); NEUTROPHILS % (AUTO) 60.5 % (42-75); PLATELET COUNT 358 X10'3 (140-440); RED BLOOD COUNT 4.37 X10'6 (4.20-5.60); RED CELL DISTRIBUTION WIDTH 16.6 % (11.5-14.5); WHITE BLOOD COUNT 10.7 X10'3 (4.5-11.0)
[2023-01-07 23:31] LABS: ALANINE AMINOTRANSFERASE 29 U/L (12-78); ALBUMIN 3.5 G/DL (3.4-5.0); ALBUMIN/GLOBULIN RATIO 0.9 (1.1-1.5); ALKALINE PHOSPHATASE 96 IU/L (46-116); ANION GAP 11 (8-16); ASPARTATE AMINO TRANSFERASE 17 U/L (10-37); BILIRUBIN,TOTAL 0.2 MG/DL (0.1-1.0); BLOOD UREA NITROGEN 13 MG/DL (7-18); BUN/CREATININE RATIO 18.8 (6.6-38.0); CALCIUM 8.9 MG/DL (8.5-10.1); CHLORIDE 97 MMOL/L (99-107); CREATININE 0.69 MG/DL (0.40-0.90); GLUCOSE 98 MG/DL (70-104); MAGNESIUM 1.9 MG/DL (1.5-2.4); POTASSIUM 3.9 MMOL/L (3.5-5.1); SODIUM 135 MMOL/L (135-145); TOTAL CARBON DIOXIDE 27.4 MMOL/L (24-32); TOTAL PROTEIN 7.5 G/DL (6.4-8.2); eGFR 86 ML/MIN
[2023-01-08] MEDS ORDERED: LORazepam 0.5 MG tablet PO ONE (00:45)
[2023-01-08 01:04] VITALS: BP 161/81
== END 2023-01-08 01:31 | disposition home or self-care (01) ==
LOC: ER 22:52
DX: G40.909 Epilepsy, unspecified, not intractable, without status epilepticus (principal); I10 Essential (primary) hypertension; K21.9 Gastro-esophageal reflux disease without esophagitis; Z91.018 Allergy to other foods; Z88.8 Allergy status to other drugs, medicaments and biological substances; Z88.5 Allergy status to narcotic agent; Z90.49 Acquired absence of other specified parts of digestive tract; Z98.51 Tubal ligation status
CPT/HCPCS: 36415; 71045; 80053; 83735; 85025; 99284

== ENCOUNTER 2023-01-17 13:36 | Emergency (ER) | payer MEDICARE, MEDICAID ==
[~2023-01-17] VITALS: Ht 160 cm; Wt 129.0 kg
[2023-01-17] MEDS ORDERED: levetiracetam inj 1,000 MG in normal saline 100ml IV soln 90 ML IV STA (14:03)
[2023-01-17] MEDS ORDERED: LORazepam 2 mg/ml vial IV ONE (14:05)
[2023-01-17] MEDS ORDERED: magnesium 2GM in 50ml NS 50 ML IV ONE (14:05)
[2023-01-17] MEDS ORDERED: normal saline 1000ML IV soln IV ONE (14:05)
[2023-01-17] MEDS ORDERED: levetiracetam inj 1,000 MG in normal saline 100ml IV soln 100 ML IV STA (14:07)
[2023-01-17 14:40] LABS: BASOPHILS # (AUTO) 0.1 X10'3 (0-0.2); BASOPHILS % (AUTO) 0.8 % (0-1); EOSINOPHILS # (AUTO) 0.2 X10'3 (0-0.9); EOSINOPHILS % (AUTO) 1.6 % (0-6); HEMATOCRIT 40.6 % (35.0-45.0); HEMOGLOBIN 13.4 g/dl (12.0-16.0); LYMPHOCYTES # (AUTO) 1.5 X10'3 (1.1-4.8); LYMPHOCYTES % (AUTO) 14.7 % (21-51); MEAN CORPUSCULAR HEMOGLOBIN 28.6 PG (27.0-31.0); MEAN CORPUSCULAR VOLUME 86.5 FL (78-98); MEAN PLATELET VOLUME 7.2 FL (7.4-10.4); MONOCYTES # (AUTO) 0.6 X10'3 (0-0.9); MONOCYTES % (AUTO) 5.7 % (2-12); NEUTROPHILS # (AUTO) 7.8 X10'3 (1.8-7.7); NEUTROPHILS % (AUTO) 77.2 % (42-75); PLATELET COUNT 327 X10'3 (140-440); RED BLOOD COUNT 4.69 X10'6 (4.20-5.60); RED CELL DISTRIBUTION WIDTH 16.8 % (11.5-14.5); WHITE BLOOD COUNT 10.1 X10'3 (4.5-11.0)
[2023-01-17 14:55] LABS: ALANINE AMINOTRANSFERASE 28 U/L (12-78); ALBUMIN 3.5 G/DL (3.4-5.0); ALBUMIN/GLOBULIN RATIO 0.8 (1.1-1.5); ALKALINE PHOSPHATASE 108 IU/L (46-116); ANION GAP 12 (8-16); ASPARTATE AMINO TRANSFERASE 19 U/L (10-37); BILIRUBIN,TOTAL 0.2 MG/DL (0.1-1.0); BLOOD UREA NITROGEN 17 MG/DL (7-18); BUN/CREATININE RATIO 23.6 (6.6-38.0); CALCIUM 9.1 MG/DL (8.5-10.1); CHLORIDE 97 MMOL/L (99-107); CREATINE KINASE 31 U/L (26-192); CREATININE 0.72 MG/DL (0.40-0.90); GLUCOSE 116 MG/DL (70-104); POTASSIUM 3.5 MMOL/L (3.5-5.1); SODIUM 133 MMOL/L (135-145); TOTAL CARBON DIOXIDE 23.8 MMOL/L (24-32); TOTAL PROTEIN 7.7 G/DL (6.4-8.2); eGFR 82 ML/MIN
[2023-01-17 17:40] VITALS: BP 172/86
== END 2023-01-17 17:53 | disposition home or self-care (01) ==
LOC: ER 13:36
DX: G40.909 Epilepsy, unspecified, not intractable, without status epilepticus (principal); I10 Essential (primary) hypertension; K21.9 Gastro-esophageal reflux disease without esophagitis; F41.9 Anxiety disorder, unspecified; Z90.49 Acquired absence of other specified parts of digestive tract; Z98.51 Tubal ligation status; Z98.890 Other specified postprocedural states; Z86.73 Personal history of transient ischemic attack (TIA), and cerebral infarction without residual deficits; Z91.018 Allergy to other foods; Z88.8 Allergy status to other drugs, medicaments and biological substances; Z79.899 Other long term (current) drug therapy
CPT/HCPCS: 36415; 80053; 82550; 85025; 96365; 96366; 96375; 99284; J1953; J3475; J3490; J7030

== ENCOUNTER 2023-05-07 10:21 | Emergency (ER) | payer MEDICARE, MEDICAID ==
[~2023-05-07] VITALS: Ht 160 cm; Wt 119.1 kg
[~2023-05-07 10:21] MED LIST changes: +ALBU18HF2 INH; +ATRIN PO; -BISA-78 PO; +BISA-95 PO; +CHLO25TA11 PO; -CLON-369 PO; +CYCL-1 PO; +DIAZ1KIT2 RC; +DIAZ20SP NS; -DICL100G30 TOP; +DILT30TA2 PO; -DOCU-22 PO; -FLUT16SP26 BOTHNARES; -FOLI0.4T14 PO; +FOLI1TAB27 PO; -IBUP-1984 PO; +IRON150C8 PO; +LACO100T2 PO; -LACO150T2 PO; -LEVE10002 PO; +LEVE750T6 PO; +LEVO-65 PO; -LISI5TAB22 PO; -MAGN296S68 PO; -METO25TA6 PO; +METO50TA16 PO; +NITR0.3T10 SL; -NITR100C6 PO; -PANT40TA54 PO; -POLY119P2 PO; -POLY510P31 PO; +POTA-207 PO; +PRED15SO68 RIGHTEYE; -SENN-263 PO
[2023-05-07 10:22] VITALS: BP 168/88
[2023-05-07] MEDS ORDERED: LORazepam 1 MG tablet PO ONE (11:20)
== END 2023-05-07 11:32 | disposition home or self-care (01) ==
LOC: ER 10:22
DX: G40.909 Epilepsy, unspecified, not intractable, without status epilepticus (principal); R32 Unspecified urinary incontinence; R06.02 Shortness of breath; R55 Syncope and collapse; I10 Essential (primary) hypertension; K21.9 Gastro-esophageal reflux disease without esophagitis; Z91.018 Allergy to other foods; Z88.5 Allergy status to narcotic agent; Z90.49 Acquired absence of other specified parts of digestive tract; Z98.51 Tubal ligation status
CPT/HCPCS: 82948; 93005; 99284

== ENCOUNTER 2023-05-07 15:40 | Emergency (ER) | payer MEDICARE, MEDICAID ==
[~2023-05-07] VITALS: Ht 160 cm; Wt 120.5 kg
[2023-05-07 16:26] LABS: BASOPHILS # (AUTO) 0.1 X10'3 (0-0.2); BASOPHILS % (AUTO) 0.8 % (0-1); EOSINOPHILS # (AUTO) 0.1 X10'3 (0-0.9); EOSINOPHILS % (AUTO) 0.6 % (0-6); HEMATOCRIT 41.3 % (35.0-45.0); HEMOGLOBIN 13.8 g/dl (12.0-16.0); LYMPHOCYTES # (AUTO) 1.8 X10'3 (1.1-4.8); LYMPHOCYTES % (AUTO) 16.6 % (21-51); MEAN CORPUSCULAR HEMOGLOBIN 28.8 PG (27.0-31.0); MEAN CORPUSCULAR HGB CONC 33.4 g/dL (33.0-36.5); MEAN CORPUSCULAR VOLUME 86.2 FL (78-98); MEAN PLATELET VOLUME 6.9 FL (7.4-10.4); MONOCYTES # (AUTO) 0.5 X10'3 (0-0.9); NEUTROPHILS # (AUTO) 8.5 X10'3 (1.8-7.7); PLATELET COUNT 398 X10'3 (140-440); RED BLOOD COUNT 4.79 X10'6 (4.20-5.60); RED CELL DISTRIBUTION WIDTH 15.5 % (11.5-14.5)
[2023-05-07 16:38] LABS: ALANINE AMINOTRANSFERASE 35 U/L (12-78); ALBUMIN 3.7 G/DL (3.4-5.0); ALBUMIN/GLOBULIN RATIO 0.9 (1.1-1.5); ALKALINE PHOSPHATASE 114 IU/L (46-116); ANION GAP 10 (8-16); ASPARTATE AMINO TRANSFERASE 21 U/L (10-37); BILIRUBIN,TOTAL 0.3 MG/DL (0.1-1.0); BLOOD UREA NITROGEN 17 MG/DL (7-18); BUN/CREATININE RATIO 20.7 (10.0-20.0); CALCIUM 9.3 MG/DL (8.5-10.1); CHLORIDE 94 MMOL/L (99-107); CREATINE KINASE 38 U/L (26-192); CREATININE 0.82 MG/DL (0.40-0.90); GLUCOSE 164 MG/DL (70-104); SODIUM 135 MMOL/L (135-145); TOTAL CARBON DIOXIDE 30.6 MMOL/L (24-32); eGFR 70 ML/MIN
[2023-05-07 16:42] LABS: POTASSIUM 2.8 MMOL/L (3.5-5.1)
[2023-05-07] MEDS ORDERED: normal saline 1000ML IV soln IVB ONE (16:45)
[2023-05-07] MEDS ORDERED: potassium Cl 40MEQ/1/2NS 520ml 520 ML IV ONE (16:45)
[2023-05-07] MEDS ORDERED: magnesium 2GM in 50ml NS 50 ML IV ONE (16:45)
[2023-05-07] MEDS ORDERED: potassium Cl 20 mEq SR tablet PO ONE (16:50)
[2023-05-07] MEDS ORDERED: acetaminophen 325mg tablet PO ONE (19:55)
[2023-05-07] MEDS ORDERED: LORazepam 2 mg/ml vial IV STA (21:57)
[2023-05-08 01:11] VITALS: BP 181/96
== END 2023-05-07 23:34 | disposition home or self-care (01) ==
LOC: ER 15:41
DX: G40.909 Epilepsy, unspecified, not intractable, without status epilepticus (principal); E87.6 Hypokalemia; M54.2 Cervicalgia; R20.0 Anesthesia of skin; I10 Essential (primary) hypertension; K21.9 Gastro-esophageal reflux disease without esophagitis; Z91.018 Allergy to other foods; Z88.8 Allergy status to other drugs, medicaments and biological substances; Z98.51 Tubal ligation status; Z90.49 Acquired absence of other specified parts of digestive tract
CPT/HCPCS: 36415; 80053; 82550; 85025; 96365; 96366; 96368; 96375; 99284; J2060; J3475; J3480; J7030; A4615

== ENCOUNTER 2023-05-19 08:33 | Emergency (ER) | payer MEDICARE, MEDICAID ==
[~2023-05-19] VITALS: Ht 160 cm; Wt 124.0 kg
[2023-05-19 09:52] LABS: BASOPHILS # (AUTO) 0.1 X10'3 (0-0.2); BASOPHILS % (AUTO) 1.2 % (0-1); EOSINOPHILS # (AUTO) 0.1 X10'3 (0-0.9); EOSINOPHILS % (AUTO) 1.7 % (0-6); HEMATOCRIT 38.5 % (35.0-45.0); HEMOGLOBIN 12.8 g/dl (12.0-16.0); LYMPHOCYTES # (AUTO) 1.7 X10'3 (1.1-4.8); LYMPHOCYTES % (AUTO) 20.3 % (21-51); MEAN CORPUSCULAR HEMOGLOBIN 28.7 PG (27.0-31.0); MEAN CORPUSCULAR HGB CONC 33.2 g/dL (33.0-36.5); MEAN CORPUSCULAR VOLUME 86.3 FL (78-98); MEAN PLATELET VOLUME 6.9 FL (7.4-10.4); MONOCYTES # (AUTO) 0.7 X10'3 (0-0.9); MONOCYTES % (AUTO) 8.3 % (2-12); NEUTROPHILS # (AUTO) 5.7 X10'3 (1.8-7.7); NEUTROPHILS % (AUTO) 68.5 % (42-75); PLATELET COUNT 400 X10'3 (140-440); RED BLOOD COUNT 4.46 X10'6 (4.20-5.60); WHITE BLOOD COUNT 8.3 X10'3 (4.5-11.0)
[2023-05-19 09:57] LABS: CLARITY,URINE CLOUDY (Clear); COLOR,URINE YELLOW (Yellow); GLUCOSE, URINE NEGATIVE (Neg); KETONES,URINE NEGATIVE (Neg); LEUKOCYTE ESTERASE ,URINE TRACE (Neg); NITRITES, URINE NEGATIVE (Neg); OCCULT BLOOD,URINE NEGATIVE (Neg); PROTEIN,URINE NEGATIVE (Neg); UA COLLECTION TYPE CLN CATCH MIDSTREAM
[2023-05-19 09:58] LABS: SQUAMOUS EPITHELIAL CELL,UR MODERATE /LPF (FEW); TRANSITIONAL EPI CELLS,URINE MODERATE /HPF
[2023-05-19 09:59] LABS: MUCUS STRANDS FEW /LPF (Neg); RBC,URINE 0-2 /HPF (0-2); WBC,URINE 20-30 /HPF (0-4)
[2023-05-19 10:00] LABS: BACTERIA,URINE 4+ /HPF (Neg)
[2023-05-19 10:12] LABS: ALANINE AMINOTRANSFERASE 34 U/L (12-78); ALBUMIN 3.4 G/DL (3.4-5.0); ALBUMIN/GLOBULIN RATIO 0.8 (1.1-1.5); ALKALINE PHOSPHATASE 95 IU/L (46-116); ANION GAP 10 (8-16); ASPARTATE AMINO TRANSFERASE 18 U/L (10-37); BILIRUBIN,TOTAL 0.3 MG/DL (0.1-1.0); BLOOD UREA NITROGEN 18 MG/DL (7-18); BUN/CREATININE RATIO 21.2 (10.0-20.0); CALCIUM 9.3 MG/DL (8.5-10.1); CHLORIDE 100 MMOL/L (99-107); CREATININE 0.85 MG/DL (0.40-0.90); GLUCOSE 104 MG/DL (70-104); POTASSIUM 3.4 MMOL/L (3.5-5.1); SODIUM 141 MMOL/L (135-145); TOTAL CARBON DIOXIDE 30.7 MMOL/L (24-32); TOTAL PROTEIN 7.7 G/DL (6.4-8.2); eGFR 68 ML/MIN
[2023-05-19] MEDS ORDERED: normal saline 1000ML IV soln IVB ONE (10:20)
--- NOTE | 2023-05-19 12:39 | NUR ---
VERIFIED WITH PT NO ALLERGY TO CODIENE.
[2023-05-19] MEDS ORDERED: HYDROcodone/acetaminophen 5mg/325mg tablet PO ONE (12:40)
--- NOTE | 2023-05-19 12:57 | NUR ---
[facility] CALLED FOR PATIENT. EST 30 MIN.
[2023-05-19 13:06] VITALS: BP 124/68
[2023-05-20] MEDS ORDERED: CEPH-585 PO (11:25)
== END 2023-05-19 13:08 | disposition home or self-care (01) ==
LOC: ER 08:34
DX: R53.1 Weakness (principal); I10 Essential (primary) hypertension; K21.9 Gastro-esophageal reflux disease without esophagitis; Z91.018 Allergy to other foods; Z88.8 Allergy status to other drugs, medicaments and biological substances; Z90.49 Acquired absence of other specified parts of digestive tract; Z98.51 Tubal ligation status
CPT/HCPCS: 80053; 81001; 83735; 85025; 87088; 96360; 96361; 99285; J7030; 87186

== ENCOUNTER 2023-05-20 09:07 | Emergency (ER) | payer MEDICARE, MEDICAID ==
[~2023-05-20] VITALS: Ht 160 cm; Wt 124.0 kg
--- NOTE | 2023-05-20 09:29 | NUR ---
NO STEP OFFS NOTED, NO OBVIOUS DEFORMITIES TO THE EXTREMITIES, PRESENTS WITH LIMITED ROM D/T CHRONIC PAIN
[2023-05-20] MEDS ORDERED: CefTRIAXone 2gm/D5W 50ml BAG 50 ML IV ONE (09:40)
[2023-05-20] MEDS ORDERED: normal saline 1000ML IV soln IVB ONE (09:40)
[2023-05-20] MEDS ORDERED: ketorolac trometh. 30mg/ml inj. IV ONE (09:40)
[2023-05-20] MEDS ORDERED: CEPH-585 PO (11:25)
[2023-05-20 12:45] VITALS: BP 143/77
== END 2023-05-20 12:48 | disposition home or self-care (01) ==
LOC: ER 09:09
DX: S09.90XA Unspecified injury of head, initial encounter (principal); N39.0 Urinary tract infection, site not specified; I10 Essential (primary) hypertension; Z91.018 Allergy to other foods; Z88.8 Allergy status to other drugs, medicaments and biological substances; W19.XXXA Unspecified fall, initial encounter; Y93.89 Activity, other specified; Y92.89 Other specified places as the place of occurrence of the external cause; Y99.8 Other external cause status
CPT/HCPCS: 70450; 71045; 72125; 96374; 96375; 99285; J0696; J1885; J7030

== ENCOUNTER 2023-05-23 09:42 | Emergency (ER) | payer MEDICARE, MEDICAID ==
[~2023-05-23] VITALS: Ht 160 cm; Wt 120.0 kg
[~2023-05-23 09:42] MED LIST changes: +CEPH-585 PO
[2023-05-23] MEDS ORDERED: HYDROcodone/acetaminophen 10/325mg tab PO ONE (10:20)
[2023-05-23 13:53] VITALS: BP 116/80
== END 2023-05-23 14:27 | disposition home or self-care (01) ==
LOC: ER 09:42
DX: S76.911A Strain of unspecified muscles, fascia and tendons at thigh level, right thigh, initial encounter (principal); M54.31 Sciatica, right side; I10 Essential (primary) hypertension; K21.9 Gastro-esophageal reflux disease without esophagitis; F41.9 Anxiety disorder, unspecified; Z88.8 Allergy status to other drugs, medicaments and biological substances; Z88.6 Allergy status to analgesic agent; Z79.899 Other long term (current) drug therapy; Z79.1 Long term (current) use of non-steroidal anti-inflammatories (NSAID); X58.XXXA Exposure to other specified factors, initial encounter; Y93.89 Activity, other specified; Y92.89 Other specified places as the place of occurrence of the external cause; Y99.8 Other external cause status; Z79.2 Long term (current) use of antibiotics
CPT/HCPCS: 72170; 73552; 99284

== ENCOUNTER 2023-05-24 01:27 | Emergency (ER) | payer MEDICARE, MEDICAID ==
[~2023-05-24] VITALS: Ht 160 cm; Wt 118.2 kg
[2023-05-24 01:40] VITALS: BP 139/85
[2023-05-24] MEDS ORDERED: acetaminophen 325mg tablet PO ONE (03:00)
[2023-05-24] MEDS ORDERED: ibuprofen tablet 400 MG TABLET PO ONE (03:00)
== END 2023-05-24 03:38 | disposition home or self-care (01) ==
LOC: ER 01:27
DX: M25.561 Pain in right knee (principal); I10 Essential (primary) hypertension; K21.9 Gastro-esophageal reflux disease without esophagitis; F41.9 Anxiety disorder, unspecified; Z88.8 Allergy status to other drugs, medicaments and biological substances; Z79.899 Other long term (current) drug therapy; Z91.018 Allergy to other foods
CPT/HCPCS: 99284

== ENCOUNTER 2024-06-06 22:07 | Emergency (ER) | payer MEDICARE, MEDICAID ==
[~2024-06-06] VITALS: Ht 167.6 cm; Wt 122.7 kg
[~2024-06-06 22:07] MED LIST changes: -CEPH-585 PO; -CYCL-1 PO; -DILT30TA2 PO; +DILT30TA34 PO; -LEVO-65 PO
[2024-06-06 22:36] VITALS: TEMP 97.6
[2024-06-06] MEDS: proCHLORperazine 10 MG/2 ml inj IV ONE (23:38)
[2024-06-06] MEDS: diphenhydrAMINE 50 mg/ml inj IV ONE (23:38)
[2024-06-06 23:39] LABS: BASOPHILS # (AUTO) 0.1 X10'3 (0-0.2); BASOPHILS % (AUTO) 0.7 % (0-1); EOSINOPHILS # (AUTO) 0.3 X10'3 (0-0.9); EOSINOPHILS % (AUTO) 2.7 % (0-6); HEMATOCRIT 37.9 % (35.0-45.0); HEMOGLOBIN 12.6 g/dl (12.0-16.0); LYMPHOCYTES # (AUTO) 2.4 X10'3 (1.1-4.8); LYMPHOCYTES % (AUTO) 25.2 % (21-51); MEAN CORPUSCULAR HEMOGLOBIN 28.8 PG (27.0-31.0); MEAN CORPUSCULAR HGB CONC 33.3 g/dL (33.0-36.5); MEAN CORPUSCULAR VOLUME 86.6 FL (78-98); MEAN PLATELET VOLUME 7.7 FL (7.4-10.4); MONOCYTES # (AUTO) 0.8 X10'3 (0-0.9); NEUTROPHILS # (AUTO) 6.1 X10'3 (1.8-7.7); NEUTROPHILS % (AUTO) 63.4 % (42-75); PLATELET COUNT 317 X10'3 (140-440); RED BLOOD COUNT 4.37 X10'6 (4.20-5.60); RED CELL DISTRIBUTION WIDTH 15.3 % (11.5-14.5); WHITE BLOOD COUNT 9.6 X10'3 (4.5-11.0)
[2024-06-07 00:06] LABS: ALANINE AMINOTRANSFERASE 30 U/L (12-78); ALBUMIN 3.1 G/DL (3.4-5.0); ALBUMIN/GLOBULIN RATIO 0.8 (1.1-1.5); ALKALINE PHOSPHATASE 83 IU/L (46-116); ANION GAP 5 (8-16); ASPARTATE AMINO TRANSFERASE 15 U/L (10-37); BILIRUBIN,TOTAL 0.3 MG/DL (0.1-1.0); BLOOD UREA NITROGEN 16 MG/DL (7-18); BUN/CREATININE RATIO 15.2 (10.0-20.0); CALCIUM 8.9 MG/DL (8.5-10.1); CHLORIDE 94 MMOL/L (99-107); CREATININE 1.05 MG/DL (0.40-0.90); GLUCOSE 115 MG/DL (70-104); POTASSIUM 3.3 MMOL/L (3.5-5.1); SODIUM 133 MMOL/L (135-145); TOTAL CARBON DIOXIDE 33.7 MMOL/L (24-32); TOTAL PROTEIN 6.9 G/DL (6.4-8.2); eCRCL 51 ML/MIN; eGFR 53 ML/MIN
[2024-06-07 02:07] VITALS: BP 116/64; PULSE 66; RESP 16; O2SAT 96
== END 2024-06-07 02:06 | disposition home or self-care (01) ==
LOC: ER 22:08
DX: R51.9 Headache, unspecified (principal); G45.9 Transient cerebral ischemic attack, unspecified; I10 Essential (primary) hypertension; K21.9 Gastro-esophageal reflux disease without esophagitis; Z91.018 Allergy to other foods; Z88.8 Allergy status to other drugs, medicaments and biological substances; Z79.899 Other long term (current) drug therapy; Z90.49 Acquired absence of other specified parts of digestive tract; Z98.51 Tubal ligation status
CPT/HCPCS: 36415; 70450; 80053; 85025; 96374; 96375; 99285; J0780; J1200